=== PATIENT | female | born 1930 | race Asian ===

== ENCOUNTER 2020-05-17 11:04 | Inpatient (IN) | payer MEDICARE, MEDICAID ==
[~2020-05-17] VITALS: Ht 160 cm; Wt 52.2 kg
[~2020-05-17 11:04] MED LIST: ASPIRIN EC81 MG PO; CELEBREX200 MG PO; DICLOFENAC SOD2.5 ML BOTH EYES; DIOVAN HCT 1601 EACH PO; EXELON4.6 MG TD; LEXAPRO5 MG PO; MOBIC15 MG PO; OCUVITE1 EA PO; PATADAY2.5 ML BOTH EYES; VOLTAREN GEL TOPIC; [UNRECOGNIZED DRUG - OTHER] SUBQ
[2020-05-17 11:11] VITALS: BP 100/64
--- NOTE | 2020-05-17 11:11 | NUR ---
ED Nurse Note: Patient AMELIA RA 29 from [facility] d/t hypoxia. Per EMS, staff saw O2 desat to 84%, currently patient O2 sat is 94% on Non-rebreather at 15L. Patient AxO x 2, obeys command, but confused and pulling at mask. 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
[2020-05-17] MEDS ORDERED: Albuterol/Ipratropium 3ml neb HHN ONE (11:15)
[2020-05-17] MEDS ORDERED: dexAMETHasone 10mg/ml Inj IV ONE (11:15)
[2020-05-17] MEDS ORDERED: Acetaminophen 500mg (ES) tab ORAL ONE (11:15)
--- NOTE | 2020-05-17 11:15 | Emergency Room Report ---
History of Present Illness General Chief Complaint: Dyspnea/Respdistress Source: Patient, Medical Record, EMS Present Illness HPI Patient is an 89-year-old female past medical history of hypertension, dementia and recent diagnosis of COVID-19 who was brought in by EMS from her extended care facility for shortness of breath. Patient's a poor historian. She denies any pain. She does not know where she is or why she is here. History taken primarily from EMS. Per EMS patient was hypoxic to 84% on room air. Patient's oxygen saturation went up to 94% on nonrebreather. Allergies: Coded Allergies: No Known Allergies (Unverified , 12/07/12) COVID-19 Screening Contact w/high risk pt: No Experienced COVID-19 symptoms?: Yes COVID-19 Testing performed INFORMATION ANALYST: Yes - 05/11/20 COVID-19 Screening: Positive COVID-19 COVID-19 Testing Source: RELIABILITY TECHNICIAN Patient History Last Menstrual Period: na Reviewed Nursing Documentation: PMH: Agreed; PSxH: Agreed Nursing Documentation-PMH Past Medical History: No History, Except For Hx Cardiac Problems: Yes Hx Hypertension: Yes Hx Cancer: No Hx Gastrointestinal Problems: No History Of Psychiatric Problem: Yes - Dementia Hx Neurological Problems: Yes Hx Dementia: Yes Hx Memory Loss: Yes Review of Systems All Other Systems: limited - dementia Physical Exam Vital Signs Date Time Temp Pulse Resp B/P (MAP) Pulse Ox O2 Delivery O2 Flow Rate FiO2 05/17/20 10:59 99.9 87 18 100/64 (76) 94 Non-Rebreather 15.0 Sp02 EP Interpretation: reviewed, abnormal - Hypoxic patient placed on BiPAP General Appearance: alert, non-toxic, mild distress Head: normocephalic, atraumatic Eyes: bilateral eye normal inspection, bilateral eye PERRL ENT: hearing grossly normal, dry mucus membranes Neck: full range of motion, no meningismus Respiratory: other - Tachypneic mild respiratory distress Cardiovascular #1: regular rate, rhythm Cardiovascular #2: 2+ carotid (R), 2+ carotid (L) Gastrointestinal: non tender, soft, no guarding, no rebound Rectal: deferred Musculoskeletal: normal range of motion, moves extm spontaneously Neurologic: fishery biologist III-XII nml as tested Skin: no rash Lymphatic: no adenopathy Procedures Critical Care Time Critical Care Time Total critical care time: Approximately 35 minutes. Due to a high probability of clinically significant, life threatening deterioration, the patient required my highest level of preparedness to intervene emergently and I personally spent this critical care time directly and personally managing the patient. This critical care time included obtaining a history; examining the patient; pulse oximetry; ordering and review of studies; arranging urgent treatment with development of a management plan; evaluation of patient's response to treatment ; frequent reassessment; and, discussions with other providers.This critical care time was performed to assess and manage the high probability of imminent, life-threatening deterioration that could result in multi-organ failure. It was exclusive of separately billable procedures and treating other patients and teaching time. Please see MDM section and the rest of the note for further information on patient assessment and treatment. Medical Decision Making Diagnostic Impression: Primary Impression: Respiratory distress Additional Impressions: Anemia Hypoxia ER Course Doing well on supplemental oxygen. Patient's d-dimer is elevated chest x-ray is clear. Concern for PE. CTA of the chest has been ordered and is pending at the time of admission. Admitting MD aware. EKG Diagnostic Results EKG Time: 11:07 EP Interpretation: Arielle Woodard MD Rate: normal - 80 bpm Rhythm: NSR ST Segments: no acute changes ASA given to the pt in ED: No Rhythm Strip Diag. Results Rhythm Strip Time: 11:15 EP Interpretation: yes - Arielle Woodard MD Rate: 81 bpm Rhythm: NSR, no PVC's, no ectopy Chest X-Ray Diagnostic Results Chest X-Ray Diagnostic Results : Chest X-Ray Ordered: Yes # of Views/Limited/Complete: 1 View Indication: Shortness of Breath EP Interpretation: Yes Interpretation: no consolidation, no effusion, no pneumothorax, no acute cardiopulmonary disease Impression: No acute disease Electronically Signed by: Arielle Woodard MD Last Vital Signs Date Time Temp Pulse Resp B/P (MAP) Pulse Ox O2 Delivery O2 Flow Rate FiO2 05/17/20 10:59 99.9 87 18 100/64 (76) 94 Non-Rebreather 15.0 Disposition: ADMITTED INPATIENT - [facility]ARD[facility] Condition: Critical Physician Consult: Dr. Ray Additional Instructions: Please note that this report is being documented using [employer] technology. This can lead to erroneous entry secondary to incorrect interpretation by the dictating instrument. Arielle Woodard M.D. May 17, 2020 11:15
--- NOTE | 2020-05-17 11:28 | NUR ---
ED Nurse Note: 20 g IV started in right forearm. Blood drawn and sent to lab,
[2020-05-17 11:37] LABS: BASOPHILS % (AUTO) 0.9 % (0.0-2.0); EOSINOPHILS % (AUTO) 0.7 % (0.0-3.0); HEMATOCRIT 36.3 % (37.0-47.0); HEMOGLOBIN 11.6 G/DL (12.0-16.0); LYMPHOCYTES % (AUTO) 36.7 % (20.0-45.0); MEAN CORPUSCULAR VOLUME 96 FL (80-99); MONOCYTES % (AUTO) 8.7 % (1.0-10.0); PLATELET COUNT 240 K/UL (150-450); RED BLOOD COUNT 3.78 M/UL (4.20-5.40); RED CELL DISTRIBUTION WIDTH 13.1 % (11.6-14.8); WHITE BLOOD COUNT 5.3 K/UL (4.8-10.8)
[2020-05-17 11:53] LABS: INR 0.9 (0.9-1.1)
[2020-05-17 11:59] LABS: ANION GAP 7 mmol/L (5-15); BLOOD UREA NITROGEN 34 mg/dL (7-18); CALCIUM 9.2 MG/DL (8.5-10.1); CARBON DIOXIDE 27 MMOL/L (21-32); CHLORIDE 109 MMOL/L (98-107); CREATININE 0.9 MG/DL (0.55-1.30); POTASSIUM 4.3 MMOL/L (3.5-5.1); SODIUM 143 MMOL/L (136-145)
--- NOTE | 2020-05-17 11:59 | Diagnostic Imaging Report ---
Procedure: XRAY Chest 1v Reason for study: Reason For Exam: SOB Comparison films: None. FINDINGS: A single one view chest is obtained. Vascularity is normal. The lung chang are clear bilaterally. Cardiac and mediastinal silhouette are within normal limits. CP angles are sharp. The bony thorax appear unremarkable. IMPRESSION: NO ACUTE CARDIOPULMONARY DISEASE.
[2020-05-17 12:05] LABS: LACTATE DEHYDROGENASE 402 U/L (81-234)
[2020-05-17 12:14] LABS: ALANINE AMINOTRANSFERASE 21 U/L (12-78); ALBUMIN 3.4 G/DL (3.4-5.0); ALKALINE PHOSPHATASE 75 U/L (46-116); ASPARTATE AMINO TRANSFERASE 25 U/L (15-37); BILIRUBIN,TOTAL 0.6 MG/DL (0.2-1.0); CREATINE KINASE 151 U/L (26-308); FERRITIN 74 NG/ML (8-388); PHOSPHORUS 4.2 MG/DL (2.5-4.9)
[2020-05-17] MEDS ORDERED: Omnipaque 350 100ml vial INJ PRN (12:15)
[2020-05-17 13:02] LABS: APPEARANCE,URINE CLEAR; BILIRUBIN, URINE NEGATIVE (NEGATIVE); GLUCOSE, URINE (UA) NEGATIVE (NEGATIVE); KETONES,URINE NEGATIVE (NEGATIVE); LEUKOCYTE ESTERASE ,URINE 1+ (NEGATIVE); NITRITE,URINE NEGATIVE (NEGATIVE); PH,URINE 6.5 (4.5-8.0); PROTEIN,URINE NEGATIVE (NEGATIVE); UROBILINOGEN,URINE NORMAL MG/DL (0.0-1.0)
[2020-05-17 13:07] LABS: COLOR,URINE YELLOW
[2020-05-17 13:10] VITALS: BP 104/64
--- NOTE | 2020-05-17 13:20 | NUR ---
ED Nurse Note: Patient resting in bed, breathing even and unlabored. BP 118/91, O2 sat 96% on 15 L non-rebreather, no s/s of acute distress. Will continue to monitor.
--- NOTE | 2020-05-17 14:40 | NUR ---
ED Nurse Note: Patient restless, ERMD order for Ativan for CT scan.
[2020-05-17] MEDS ORDERED: LORazepam Inj 2mg/ml 1ml IV ONE (14:45)
[2020-05-17 15:15] VITALS: BP 105/67
[2020-05-17] MEDS ORDERED: LOSARTAN POTASS25 M1 PO (15:17)
[2020-05-17] MEDS ORDERED: GABAPENTIN100 MG ORAL (15:17)
[2020-05-17] MEDS ORDERED: LOPERAMIDE2 MG PO (15:17)
[2020-05-17] MEDS ORDERED: MILK OF MA400 MG/51 ORAL (15:17)
[2020-05-17] MEDS ORDERED: ACETAMINOPHEN325 M1 ORAL (15:17)
--- NOTE | 2020-05-17 15:20 | NUR ---
ED Nurse Note: Patient able to tolerate CT scan without moving, Ativan not needed. Wasted Ativan with RN witness.
--- NOTE | 2020-05-17 15:33 | Diagnostic Imaging Report ---
EXAM: CT CTA Chest w Contrast CLINICAL HISTORY: Reason For Exam: SOB. TECHNIQUE: CT angiogram of the pulmonary vasculature performed with IV contrast. 2-D and 3-D reformat images obtained. All CT scans at this facility are performed using dose modulation techniques as appropriate to a performed exam including the following: automated exposure control with adjustment of the mA and/or kV according to patient size. RADIATION DOSE: CTDIvol: 37.9 mGy DLP: 169.4 mGy-cm Dose information generated by the CT scanner is available in PACS. COMPARISON: None FINDINGS: Study limited due to respiratory motion artifacts. There is adequate opacification of the pulmonary vascularity. There is no central filling defects or thrombus identified. No gross abnormality identified in peripheral subsegmental branches to the extent visualized. The aorta is normal in caliber and there is no intimal flap or dissection. There are small calcified lymph nodes in the mediastinum. Lungs are mostly clear except for minimal dependent atelectasis. Limited images through the upper abdomen show a small layering gallstone. Degenerative changes noted along the spine. There is no acute osseous abnormality noted. IMPRESSION: STUDY LIMITED DUE TO RESPIRATORY MOTION ARTIFACT. NO LARGE CENTRAL EMBOLISM. NO DEFINITE PERIPHERAL SMALL SUBSEGMENTAL PULMONARY EMBOLI TO THE EXTENT VISUALIZED. 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 GALLSTONE.
--- NOTE | 2020-05-17 16:23 | NUR ---
NURSE NOTES: Received report from KRYSTIAN Walker.
--- NOTE | 2020-05-17 16:23 | NUR ---
ED Nurse Note: Report given to Izabella BOLAND
[2020-05-17 16:30] VITALS: BP 109/66
--- NOTE | 2020-05-17 17:00 | NUR ---
NURSE NOTES: Pt arrived on the floor. Pt placed on contact and droplet precaution for positive Covid-19 test result. No sign of acute distress. Pt on non-rebreather 100% with SpO2 100% with fair waveform. Several blankets placed on patient to warm her up. Temp 97.9. Hands and feet cold to touch. Pt able to move all extremities equally. Pupils size 3 PERRLA. Peripheral pulses bilateral and strong. Pt pashto speaking with confusion and history of dementia. Pt able to mime needing the bed camilo and knows what it is for. Bedpan provided and patient able to urinate without trouble. Urine clear yellow without foul odor. Skin intact. One IV noted on right forearm 20 gauge. Pt calm and comfortable at this time. Heels elevated. Optifoam placed on coccyx and bilateral heels for skin protection. Call light placed next to patient. Restraints initiated for safety as patient is a high fall risk and the door to her room must remain closed for covid-19 precaution. Bed alarm on. Bed low and locked.
[2020-05-17 17:14] VITALS: BP 149/92
--- NOTE | 2020-05-17 17:51 | NUR ---
CASE MANAGEMENT: REVIEW 89 YEAR OLD FEMALE BIBA FROM [facility] CC: SOB SI: COVID-19 T 99.9 HR 87 RR 18 BP 100/64 SAT 94% NON-REBREATHER FLOW RATE 15.0 ABG: PH 7.421 PCO2 31.8 PCO2 390.0 HCO3 20.2 IS: TYLENOL 500MG PO X1 ALBUTEROL HHN X1 DECADRON IV X1 NS IVF BOLUS X1 ATIVAN IV X1 PATIENT ADMITTED TO STEP DOWN UNIT 05/17/2020 DCP: PATIENT IS FROM [facility]
--- NOTE | 2020-05-17 18:36 | NUR ---
NURSE NOTES: Message left for Dr Aviles regarding admission orders. Awaiting call back. Addendum: 05/17/20 at 1939 by Izabella Stevens RN Dr Packer NOT Dr Aviles. Dr Packer is primary. Dr Aviles is not consulted on this patient.
--- NOTE | 2020-05-17 19:24 | NUR ---
HAND-OFF: Report given to KRYSTIAN Flores.
--- NOTE | 2020-05-17 19:25 | NUR ---
NURSE NOTES: Received report from KRYSTIAN Parekh, pt. in bed awake, appears to be alert to name and place,-pt. is Sami speaking, no signs or symptoms of acute cardiac or respiratory distress noted, call light within easy reach, bed alarm on, side rails up x's3 and safety brakes engaged, bilateral wrist restraints removed, pulses palpable and skin intact- restraints reapplied, HOB elevated, isolation precautions observed, pt. appears to be sating well on 15L fio2 at 100%- nonrebreather- no distress noted, pt. appears clean and dry, RFA 20G IV intact and patent, safety measures continued will continue with plan of care.
--- NOTE | 2020-05-17 19:36 | NUR ---
NURSE NOTES: left message for DR. Packer for admission orders-awaiting for call back from doctor.
[2020-05-17 20:00] VITALS: BP 141/69
--- NOTE | 2020-05-17 20:24 | NUR ---
NURSE NOTES: called DR. Packer- noah doctor he will call me back with admission orders.
--- NOTE | 2020-05-17 20:41 | NUR ---
NURSE NOTES: Received orders from DR. Packer, orders read back and verified- also home medication okay to continue as in med reconcile but to make losartan Potassium 25mg PO daily and Loperamide 2mg Q6hrs prn diarrhea- orders carried out.
[2020-05-17] MEDS ORDERED: Milk of Magnesia 30ml Ud ORAL PRN (20:45)
--- NOTE | 2020-05-17 22:55 | NUR ---
NURSE NOTES: during hourly rounding noticed- pt. had IV out at bedside- tried several attempts to insert IV but unsuccessful- have another nurse Retry- pt. cleaned- bed bath given and linens changed- oral care provided, pt. remains stable-will continue to monitor.
--- NOTE | 2020-05-17 23:13 | NUR ---
NURSE NOTES: per Kyra at lab- there is no test for pro-calcitonin on calcitonin- will notify MD in am- but she will do calcitonin level.
[2020-05-18] VITALS: BP 139/63
--- NOTE | 2020-05-18 00:48 | NUR ---
NURSE NOTES: left message for DR. Packer- awaiting for call back- pt. very agitated- trying to get out of bed- confused- will continue to monitor pt.
--- NOTE | 2020-05-18 01:26 | NUR ---
NURSE NOTES: per DR. Yamini prince to order Ativan 0.5mg IV Q8hrs prn anxiety.
[2020-05-18] MEDS: LORazepam Inj 2mg/ml 1ml IV PRN ×2 (01:42→16:28)
--- NOTE | 2020-05-18 01:46 | NUR ---
NURSE NOTES: pt. titrated down to NC 4L - appears to be tolerating NC settings sating at 199%- will continue to monitor pt. and with plan of care. Addendum: 05/18/20 at 0242 by NOREEN MELARA RN RN correction to message above pt. sating at 99%.
--- NOTE | 2020-05-18 02:42 | NUR ---
NURSE NOTES: went to assess pt.- noted pt. not wearing NC - appeared pt. had some pieces of NC tubing sticking out of her mouth- tried to take pieces out of her mouth from the outside of her mouth- but pt. came towards me and bit my right thumb- skin intact. pt. sating at 99%- without NC- will continue to monitor pt. Addendum: 05/18/20 at 0253 by NOREEN MELARA RN RN Ativan appears to be ineffective- pt. continues to be agitated- combative and biting- when trying to clean her or providing pt. care.
[2020-05-18 04:00] VITALS: BP 148/69
--- NOTE | 2020-05-18 05:01 | NUR ---
HAND-OFF: Report given to Debbie Grubbs pt. remains stable and no signs of distress noted.
--- NOTE | 2020-05-18 05:03 | NUR ---
NURSE NOTES: Received pt's report from KRYSTIAN Flores, pt. in bed awake, A/O x 1, pt was not able to say her name, but pt understand general question and answered properly. Pt seemed to be confused because Pt found chewing her IV line and nasal canula last night. I asked why she try to chew plastic tube, she stated "I don't know." No s/s of respiratory distress noted, call light within reach, bed alarm on, side rails up x's3. Pt is on bilateral wrist restraints, Semi-bueno position. Pt is on nonrebreather mask, 15L. SpO2 100%. Pt's IV sites are clean and intact. Will continue to monitor with plan of care.
[2020-05-18 05:25] LABS: BASOPHILS % (AUTO) 0.4 % (0.0-2.0); HEMATOCRIT 33.9 % (37.0-47.0); HEMOGLOBIN 10.8 G/DL (12.0-16.0); LYMPHOCYTES % (AUTO) 26.5 % (20.0-45.0); MEAN CORPUSCULAR VOLUME 95 FL (80-99); MONOCYTES % (AUTO) 6.6 % (1.0-10.0); NEUTROPHILS % (AUTO) 66.5 % (45.0-75.0); PLATELET COUNT 248 K/UL (150-450); RED BLOOD COUNT 3.56 M/UL (4.20-5.40); RED CELL DISTRIBUTION WIDTH 12.9 % (11.6-14.8)
--- NOTE | 2020-05-18 05:56 | NUR ---
NURSE NOTES: Pt's RR went down to 10. Called the RT change to her setting Venturi mask 55% FiO2. SpO2 100% at this moment. RR 13. Will continue to monitor.
[2020-05-18 05:58] LABS: ALANINE AMINOTRANSFERASE 18 U/L (12-78); ALBUMIN 3.2 G/DL (3.4-5.0); ALBUMIN/GLOBULIN RATIO 0.8 (1.0-2.7); ALKALINE PHOSPHATASE 72 U/L (46-116); ANION GAP 9 mmol/L (5-15); ASPARTATE AMINO TRANSFERASE 29 U/L (15-37); BILIRUBIN,TOTAL 0.6 MG/DL (0.2-1.0); BLOOD UREA NITROGEN 27 mg/dL (7-18); CALCIUM 8.9 MG/DL (8.5-10.1); CARBON DIOXIDE 24 MMOL/L (21-32); CHLORIDE 109 MMOL/L (98-107); FERRITIN 80 NG/ML (8-388); PHOSPHORUS 3.6 MG/DL (2.5-4.9); POTASSIUM 4.2 MMOL/L (3.5-5.1); SODIUM 142 MMOL/L (136-145)
--- NOTE | 2020-05-18 07:33 | NUR ---
HAND-OFF: Report given to KRYSTIAN Bravo.
--- NOTE | 2020-05-18 07:35 | NUR ---
NURSE NOTES: Report received from Ravi Castellanos RN.Pt awake,confused sitting up on high fowlers position,with bilat wrist restraints,noted no resp distress on Venturi,55%SR on the monitor no signs of pain or discomfort,SR on the monitor,pt incontinent of urine,skin warm and dry with IV H-L to LAC and LH both intact,SR up x2 ,bed lock in lowest position will continue with plans of care.
[2020-05-18 08:00] VITALS: BP 127/84
[2020-05-18] MEDS ORDERED: Albuterol 90mcg Inhaler 8gm INH PRN (08:15)
--- NOTE | 2020-05-18 08:27 | Consultation ---
History of Present Illness General Date patient seen: May 18, 2020 Time patient seen: 07:30 Chief Complaint: Dyspnea/Respdistress Referring physician: dr Packer Reason for Consultation: hypoxia, + COVID Present Illness HPI 89 years old female with past medical history of hypertension, dementia, recently diagnosed COVID-19, presented from the alf facility due to shortness of breath. Patient was a poor historian given her dementia. Per paramedics, patient was hypoxic, saturating 84% on the room air. Patient required placement of nonrebreather mask with oxygen saturation improved to 94%. Upon evaluation patient had low-grade fever and was hypoxic. Laboratory work-up revealed no leukocytosis, hemoglobin 11.6, hematocrit 26.3, platelet count 240. ABG was stable on 100 percent nonrebreathing mask. BUN 34, creatinine 0.9 , Troponin negative. EKG revealed sinus rhythm no acute ischemic changes. Rapid COVID-19 was positive. Chest x-ray revealed no acute cardiopulmonary pathology. CT angiogram of the chest revealed no evidence of PE. In emergency department patient received IV Decadron, MDI albuterol and admitted for further management to stepdown unit. Pulmonary consult was requested to assist in management of this patient. Allergies: Coded Allergies: No Known Allergies (Unverified , 12/07/12) Medication History Scheduled Celecoxib* (Celebrex*), 200 MG PO DAILY, (Reported) Gabapentin* (Gabapentin*), 100 MG ORAL BID, (Reported) Magnesium Hydroxide* (Milk Of Magnesia*), 30 ML ORAL DAILY, (Reported) Scheduled PRN Acetaminophen* (Acetaminophen 325MG Tablet*), 650 MG ORAL Q4H PRN for For Pain, (Reported) Miscellaneous Medications Loperamide Hcl (Loperamide), 2 MG PO, (Reported) Losartan Potassium (Losartan Potassium), 25 MG PO, (Reported) Discontinued Medications Aspirin Ec* (Aspirin Ec*), 81 MG PO DAILY, (Reported) Discontinued Reason: Therapy completed Beta-Carotene(A) W-C & E/Min (Prosight Tablet), 1 EA PO DAILY, (Reported) Discontinued Reason: Therapy completed Diclofenac Sodium (Diclofenac Sodium*), 1 DROP BOTH EYES QID, (Reported) Discontinued Reason: Therapy completed Escitalopram Oxalate (Lexapro), 10 MG PO HS, (Reported) Discontinued Reason: Therapy completed Meloxicam* (Mobic*), 15 MG PO DAILY, (Reported) Discontinued Reason: Therapy completed Olopatadine Hcl (Pataday), 1 DRP BOTH EYES DAILY, (Reported) Discontinued Reason: Therapy completed Rivastigmine Tartrate (Exelon), 13.3 MG TD DAILY, (Reported) Discontinued Reason: Therapy completed Valsartan/Hydrochlorothiazide 160-12.5MG (Diovan Hct 160-12.5 Mg Tab), 1 TAB PO DAILY, (Reported) Discontinued Reason: Therapy completed [Forted Injection], 20 MCG SUBQ DAILY, (Reported) Discontinued Reason: Therapy completed [Voltaren Gel], 1 % TOPIC DAILY, (Reported) Discontinued Reason: Therapy completed Patient History History Provided By: Medical Record, EMS Healthcare decision maker Resuscitation status Full code Advanced Directive on File Review of Systems ROS Narrative Unavailable due to patient dementia Physical Exam General Appearance: no apparent distress, other - elderly poorly responsive thin female Lines, tubes and drains: peripheral HEENT: normocephalic, atraumatic, anicteric Neck: supple Respiratory/Chest: decreased breath sounds Abdomen: normal bowel sounds, non tender, soft Extremities: no calf tenderness, no edema Skin Exam: warm/dry Neurologic: other - awake, poorly responsive, moves all extremities Musculoskeletal: atrophy - BLE Last 24 Hour Vital Signs Date Time Temp Pulse Resp B/P (MAP) Pulse Ox O2 Delivery O2 Flow Rate FiO2 05/18/20 04:00 Non-Rebreather 15.0 05/18/20 04:00 15.0 100 05/18/20 04:00 98.0 88 16 148/69 (95) 100 05/18/20 03:56 74 05/18/20 00:00 Non-Rebreather 15.0 05/18/20 00:00 97.8 92 16 139/63 (88) 99 05/18/20 00:00 15.0 100 05/17/20 23:43 81 05/17/20 20:00 Non-Rebreather 15.0 05/17/20 20:00 15.0 100 05/17/20 20:00 98.1 98 16 141/69 (93) 95 05/17/20 19:20 88 05/17/20 17:16 Non-Rebreather 15.0 05/17/20 17:14 76 25 100 60 05/17/20 17:14 97.9 77 15 149/92 (111) 90 05/17/20 16:30 99.1 72 18 116/65 96 Non-Rebreather 15.0 05/17/20 16:30 99.1 72 18 109/66 97 Non-Rebreather 15.0 05/17/20 15:15 99.4 75 18 105/67 97 Non-Rebreather 15.0 05/17/20 13:10 99.5 67 18 104/64 96 Non-Rebreather 15.0 05/17/20 12:01 99.1 05/17/20 11:11 99.9 78 18 100/64 94 Non-Rebreather 15.0 05/17/20 11:11 87 18 Non-Rebreather 15.0 05/17/20 10:59 99.9 87 18 100/64 (76) 94 Non-Rebreather 15.0 Intake and Output 05/17/20 05/18/20 19:00 07:00 Intake Total 0 ml Balance 0 ml Intake Oral 0 ml # Voids 4 Laboratory Tests Test 05/17/20 11:11 05/17/20 12:05 05/17/20 12:51 05/18/20 03:20 White Blood Count 5.3 K/UL (4.8-10.8) 6.0 K/UL (4.8-10.8) Red Blood Count 3.78 M/UL (4.20-5.40) L 3.56 M/UL (4.20-5.40) L Hemoglobin 11.6 G/DL (12.0-16.0) L 10.8 G/DL (12.0-16.0) L Hematocrit 36.3 % (37.0-47.0) L 33.9 % (37.0-47.0) L Mean Corpuscular Volume 96 FL (80-99) 95 FL (80-99) Mean Corpuscular Hemoglobin 30.7 PG (27.0-31.0) 30.3 PG (27.0-31.0) Mean Corpuscular Hemoglobin Concent 31.9 G/DL (32.0-36.0) L 31.7 G/DL (32.0-36.0) L Red Cell Distribution Width 13.1 % (11.6-14.8) 12.9 % (11.6-14.8) Platelet Count 240 K/UL (150-450) 248 K/UL (150-450) Mean Platelet Volume 7.8 FL (6.5-10.1) 6.4 FL (6.5-10.1) L Neutrophils (%) (Auto) 53.0 % (45.0-75.0) 66.5 % (45.0-75.0) Lymphocytes (%) (Auto) 36.7 % (20.0-45.0) 26.5 % (20.0-45.0) Monocytes (%) (Auto) 8.7 % (1.0-10.0) 6.6 % (1.0-10.0) Eosinophils (%) (Auto) 0.7 % (0.0-3.0) 0.0 % (0.0-3.0) Basophils (%) (Auto) 0.9 % (0.0-2.0) 0.4 % (0.0-2.0) Prothrombin Time 10.4 SEC (9.30-11.50) Prothromb Time International Ratio 0.9 (0.9-1.1) Activated Partial Thromboplast Time 26 SEC (23-33) D-Dimer 1.26 mg/L FEU (0.00-0.49) H Sodium Level 143 MMOL/L (136-145) 142 MMOL/L (136-145) Potassium Level 4.3 MMOL/L (3.5-5.1) 4.2 MMOL/L (3.5-5.1) Chloride Level 109 MMOL/L (98-107) H 109 MMOL/L (98-107) H Carbon Dioxide Level 27 MMOL/L (21-32) 24 MMOL/L (21-32) Anion Gap 7 mmol/L (5-15) 9 mmol/L (5-15) Blood Urea Nitrogen 34 mg/dL (7-18) H 27 mg/dL (7-18) H Creatinine 0.9 MG/DL (0.55-1.30) 1.0 MG/DL (0.55-1.30) Estimat Glomerular Filtration Rate 59.0 mL/min (>60) 52.2 mL/min (>60) Glucose Level 153 MG/DL (74-106) H 93 MG/DL (74-106) Lactic Acid Level 1.40 mmol/L (0.4-2.0) Calcium Level 9.2 MG/DL (8.5-10.1) 8.9 MG/DL (8.5-10.1) Phosphorus Level 4.2 MG/DL (2.5-4.9) 3.6 MG/DL (2.5-4.9) Magnesium Level 2.1 MG/DL (1.8-2.4) 1.9 MG/DL (1.8-2.4) Ferritin 74 NG/ML (8-388) 80 NG/ML (8-388) Total Bilirubin 0.6 MG/DL (0.2-1.0) 0.6 MG/DL (0.2-1.0) Aspartate Amino Transf (AST/SGOT) 25 U/L (15-37) 29 U/L (15-37) Alanine Aminotransferase (ALT/SGPT) 21 U/L (12-78) 18 U/L (12-78) Alkaline Phosphatase 75 U/L (46-116) 72 U/L (46-116) Lactate Dehydrogenase 402 U/L (81-234) H Total Creatine Kinase 151 U/L (26-308) Troponin I 0.000 ng/mL (0.000-0.056) 0.000 ng/mL (0.000-0.056) C-Reactive Protein, Quantitative < 0.4 mg/dL (0.00-0.90) 0.7 mg/dL (0.00-0.90) Pro-B-Type Natriuretic Peptide 135 pg/mL (0-125) H Total Protein 6.9 G/DL (6.4-8.2) 7.0 G/DL (6.4-8.2) Albumin 3.4 G/DL (3.4-5.0) 3.2 G/DL (3.4-5.0) L Globulin 3.5 g/dL 3.8 g/dL Albumin/Globulin Ratio 1.0 (1.0-2.7) 0.8 (1.0-2.7) L Urine Color Yellow Urine Appearance Clear Urine pH 6.5 (4.5-8.0) Urine Specific [place] 1.015 (1.005-1.035) Urine Protein Negative (NEGATIVE) Urine Glucose (UA) Negative (NEGATIVE) Urine Ketones Negative (NEGATIVE) Urine Blood Negative (NEGATIVE) Urine Nitrite Negative (NEGATIVE) Urine Bilirubin Negative (NEGATIVE) Urine Urobilinogen Normal MG/DL (0.0-1.0) Urine Leukocyte Esterase 1+ (NEGATIVE) H Urine RBC 0-2 /HPF (0 - 2) Urine WBC 0-2 /HPF (0 - 2) Urine Squamous Epithelial Cells Occasional /LPF Urine Bacteria Occasional /HPF (NONE) Urine Mucus Moderate /LPF (NONE/OCC) H Arterial Blood pH 7.421 (7.350-7.450) Arterial Blood Partial Pressure CO2 31.8 mmHg (35.0-45.0) L Arterial Blood Partial Pressure O2 390.0 mmHg (75.0-100.0) H Arterial Blood HCO3 20.2 mmol/L (22.0-26.0) L Arterial Blood Oxygen Saturation 99.2 % (95-100) Arterial Blood Base Excess -3.5 (-2-2) L Charlie Test Positive Calcitonin Level Pending Microbiology Date/Time Source Procedure Growth Status 05/17/20 13:40 Nasopharynx SARS-CoV-2 RdRp Gene Assay - Final Complete Height (Feet): 5 Height (Inches): 3.00 Weight (Pounds): 117 Medications Current Medications Medications (Trade) Dose Ordered Sig/Hetal Route PRN Reason Start Time Stop Time Status Last Admin Dose Admin Acetaminophen (Tylenol) 650 mg Q4H PRN ORAL Mild Pain (Pain Scale 1-3) 05/17/20 20:45 06/16/20 20:44 Dexamethasone Sodium Phosphate (Decadron 4mg/ml vial) 6 mg DAILY IVP 05/18/20 09:00 05/27/20 08:59 Gabapentin (Neurontin) 100 mg BID ORAL 05/18/20 09:00 06/17/20 08:59 Iohexol (Omnipaque 350 100ml) 100 ml NOW PRN INJ Radiology Procedure 05/17/20 12:15 05/19/20 12:14 Loperamide HCl (Imodium) 2 mg Q6H PRN ORAL Diarrhea 05/17/20 20:45 06/16/20 20:44 Lorazepam (Ativan 2mg/ml 1ml) 0.5 mg Q8H PRN IV For Anxiety 05/18/20 01:30 05/25/20 01:29 05/18/20 01:42 Losartan Potassium (Cozaar) 25 mg DAILY ORAL 05/18/20 09:00 06/17/20 08:59 Magnesium Hydroxide (Mom) 30 ml DAILYPRN PRN ORAL Constipation 05/17/20 20:45 06/16/20 20:44 Meloxicam (Mobic) 15 mg DAILY ORAL 05/18/20 09:00 06/17/20 08:59 Ondansetron HCl (Zofran) 4 mg Q4H PRN IVP Nausea & Vomiting 05/17/20 20:45 06/16/20 20:44 Assessment/Plan Assessment/Plan: ASSESSMENT COVID-19 infection Acute hypoxemic respiratory failure, requiring 100% nonrebreathing mask Shortness of breath Acute kidney injury/azotemia/ likely due to dehydration Anemia Protein calorie malnutrition Hypertension PLAN OF CARE EDUARDO isolation supplemental oxygen titrate to keep pulse ox above 92% MDI treatment trial of steroids ABG this am closely monitor respiratory status hold off abx given no evidence of pneumonia on CXR f/up with CXR serial troponin negative, EKG no acute ischemic changes Echo Venous duplex BLE DVT prophylaxis with LMWH add GI prophylaxis given pt on steroids and also NSADH inflammatory markers to assess risk for cytokine storm: D dimer 1.26, LDH 402, stable ferritin and CRP aspiration precaution swallow evaluation dietary eval monitor renal parameters, electrolytes ,avoid nephrotoxic, encourage hydration SNF medication resumed supportive care case discussed and evaluated by supervising physician Ginger Red NP May 18, 2020 08:27
[2020-05-18] MEDS ORDERED: celeBREX 200mg Cap **SURGERY PATIENTS ONLY ORAL SCH (09:00)
[2020-05-18] MEDS: Meloxicam 15 MG TAB ORAL SCH ×2 (09:00→09:45)
[2020-05-18] MEDS: Losartan 25mg tab ORAL SCH ×2 (09:00→09:46)
--- NOTE | 2020-05-18 09:03 | NUR ---
RD ASSESSMENT & RECOMMENDATIONS SEE CARE ACTIVITY FOR COMPLETE ASSESSMENT DAILY ESTIMATED NEEDS: Needs based on Pulmonary 53kg 25-30 kcals/kg 4763-6813 total kcals 1-1.5 g protein/kg 53-80 g total protein 20-30ml/kcal mL/kg 9678-3205 total fluid mLs NUTRITION DIAGNOSIS: Swallowing difficulty r/t dementia, confusion as evidenced by pt on puree texture diet, EQUINE INTERN eval pending. (CURRENT DIET: Cardiac puree) PO DIET RECOMMENDATIONS--->>> Low Na diet/ texture per EQUINE INTERN ENTERAL NUTRITION RECOMMENDATIONS: Jevity 1.2 @50ml/hr x24 hrs to provide 1200ml, 1440 kcal, 67g pro, 968ml free H2O - If not appropriate for oral diet rec non oral feeds to meet est needs. - Obtain GI access, initiate Jevity 1.2@20ml/hr for 6 hrs. Advance as tolerated 10ml/hr q4-6 hrs to goal. - Flush per MD, HOB over 30 degrees ADDITIONAL RECOMMENDATIONS: 1) With ORAL DIET add Ensure Enlive w/ meals 2) TF recs as above if pt is NOT appropriate for oral diet 3) Monitor lytes, replete as needed 4) Check BG w/ decadron, niss prn 5) Maintain calibrated bed scale wts
--- NOTE | 2020-05-18 09:35 | NUR ---
NURSE NOTES: Seen by Ginger Red CT SCAN TECH,ordered Speech Eval,will keep pt NPO pending eval.PO medic hold.
[2020-05-18] MEDS: Enoxaparin 40mg Inj SUBQ SCH (09:48)
--- NOTE | 2020-05-18 10:30 | NUR ---
NURSE NOTES: Speech therapist Aspen at bedside,swallowing eval done,able to swallow pureed food no signs aspiration noted.
[2020-05-18] MEDS: Pantoprazole Inj IVP SCH (10:59)
--- NOTE | 2020-05-18 11:46 | History & Physical ---
History and Physical History & Physicial Dictated for Int Med-DR Packer no. [id number] Dimas Anderson MD May 18, 2020 11:46
[2020-05-18 12:00] VITALS: BP 125/46
--- NOTE | 2020-05-18 12:00 | NUR ---
NURSE NOTES: Pt ate lunch fed by RN,tolerated Pureed food,no aspiration presented.
--- NOTE | 2020-05-18 14:18 | NUR ---
BEDSIDE SWALLOW EVALUATION ORDERS RECEIVED FROM SURFACING MACHINE OPERATOR ROBERTO FOR SWALLOW EVALUATION. DYSPHAGIA RISK FACTORS FOR THIS 89 Y.O. FEMALE: ACUTE: COVID-19 Positive, Acute hypoxemic respiratory failure (Requiring 100% nonrebreathing mask), SOB, Acute kidney injury (/azotemia/ likely due to dehydration), Anemia, Protein calorie malnutrition, Hypertension. H/O: Dementia, Anxiety, protein-calorie malnutrition, SOB, dependence on supplemental oxygen, muscle weakness, difficulty walking, essential hypertension, insomnia, Psychotic disorders. RELEVANT MEDS: Neurontin (seizures). Protonix (GERD). Zofran (Nausea). Ativan (Agitation). PLOF: Per transfer documents, Patient was previously on a Regular solids with thin liquids diet. Upon admission to this facility ([facility] [place]) Patient made NPO awaiting swallow eval. PER RN: Patient is unable to follow any simple commands, difficult to understand. Patient appears to be confused. Patient initially requiring Venturi Mask at 14L Fi02 55%, SP02 97%. Patient was placed on 4 L nasal cannula by RT for completion of PO trials during swallowing evaluation. Patients VSS for the duration of the session and SP02 >95% maintained. INITIAL IMPRESSIONS: Mild to Moderate Oropharyngeal Dysphagia (pharyngeal phase appears to be worse) compounded by Patient's poor breathing swallowing coordination (Dx of Acute hypoxemic respiratory failure) and cognitive behavioral deficits (unable to follow directions, confused; h/o Dementia) with reduced oral motor ROM and strength, prolonged oral and oropharyngeal transit times, no oral residuals remaining in oral cavity. Laryngeal elevation present upon palpation appears mildly delayed and reduced in elevation, immediate overt s/s of aspiration with thin liquids via teaspoon; No overt s/s of aspiration with puree solid trials of nectar thick liquids trials. PO TRIALS: Patient completed PO trials of thin liquids via teaspoon, nectar thick liquids via teaspoon, and puree solids via spoon. Patient noted with immediate grimacing and throat clearing s/p thin liquids, no overt s/s of aspiration with nectar thick liquids or puree solids; vocal quality remained clear. PATIENT HAS RISK FOR ASPIRATION AND POOR PO GIVEN COGNITIVE BEHAVIORAL DEFICITS (CONFUSED, DOES NOT FOLLOW DIRECTIONS, H/O DEMENTIA) AND POOR BREATHING-SWALLOWING COORDINATION. RECOMMENDATIONS: 1. Moist Puree with [place] Thick Liquids; will require 1 to 1 careful hand feeding for aspiration precautions and for encouragement to increase PO. 2. Defer to RD for type/supplements: Low NA +Ensure Enlive TID. 3. GIRLS SWIMMING COACH will f/u for dysphagia tx and management 3-5x a week x 1 week 4. GIRLS SWIMMING COACH plans to monitor need for MBSS while in house. 5. Please assist with oral care/hygiene BID. GIRLS SWIMMING COACH communicated results, recommendations, and POC to RN. GIRLS SWIMMING COACH plans to f/u for diet tolerance, dysphagia management/tx, monitor need for MBSS while in house to r/o silent aspiration. Thank you for this referral! GIRLS SWIMMING COACH [phone]
--- NOTE | 2020-05-18 14:41 | NUR ---
CASE MANAGEMENT: REVIEW SI: COVID-19 . HYPOXIA T 97.7 HR 67 RR 16 BP 148/69 SAT 97% VENTURI MASK FIO2 55 ABG: PH 7.488 PCO2 25.5 PO2 242.4 HCO3 18.9 O2 SAT 99.0 BASE -3.2 IS: DECADRON IV QD PROTONIX IV QD ALBUTEROL INH Q4HR PRN ATIVAN IV Q8HR STEP DOWN UNIT STATUS DCP: PATIENT IS FROM [facility]
--- NOTE | 2020-05-18 15:15 | History and Physical Report ---
DATE OF ADMISSION: 05/17/2020 CHIEF COMPLAINT: The patient is an 89-year-old female, who presents with a chief complaint of shortness of breath. HISTORY OF PRESENT ILLNESS: The patient was evaluated at [facility] on 05/11/2020. The patient is a resident of [facility]. The patient was found to be COVID-19 positive. The patient was discharged back to [facility]. The patient then began to experience shortness of breath. The patient was transferred to [facility] emergency room. The patient was found again to be COVID-19 positive. The patient is admitted with shortness of breath and probable COVID-19 pneumonia. REVIEW OF SYSTEMS: Unable to assess secondary to the patient's mental status. PAST MEDICAL HISTORY: Significant for: 1. Alzheimer's dementia. 2. COVID-19 positive diagnosed on 05/11/2020. PAST SURGICAL HISTORY: Unknown. CURRENT MEDICATIONS: 1. Celebrex 200 mg one tablet p.o. daily. 2. Gabapentin 100 mg p.o. twice daily. 3. Losartan 25 mg p.o. daily. ALLERGIES: No known drug allergies. SOCIAL HISTORY: The patient is single and resident of [facility]. The patient denies tobacco or alcohol use. PHYSICAL EXAMINATION: VITAL SIGNS: Temperature 98.1, respirations 16, pulse 88 to 98, and blood pressure 141/69. GENERAL: The patient is a thin-appearing, female, in no apparent distress. HEENT: Eyes, pupils are equal and responsive to light and accommodation. Extraocular movements are intact. NECK: Supple without lymphadenopathy. CHEST: Decreased breath sounds to bilateral bases. Otherwise, clear to auscultation without wheezes or rales. CARDIOVASCULAR: Regular rhythm and rate. S1, S2 are normal without murmurs, rubs, or gallops. ABDOMEN: Soft, nontender, and nondistended. Positive bowel sounds. No evidence of hepatosplenomegaly. Currently, no rebound or guarding noted. EXTREMITIES: Negative for clubbing, cyanosis, or edema. RECTAL/GENITAL: Not performed. NEUROLOGIC: Cranial nerves II to XII are grossly intact without focal deficits. Motor strength is 5/5 bilaterally. Deep tendon reflexes are 2+ plantar. LABORATORY STUDIES: WBC 5.2, hemoglobin 11.6, hematocrit 36.3, and platelets 240,000. Sodium 143, potassium 4.3, chloride 109, CO2 27, BUN 34, creatinine 0.9. Glucose 153. Troponin 0.0. Rapid COVID-19 was reported as positive. A chest x-ray is reported as no acute disease. A CT angiogram failed to demonstrate pulmonary embolism. ASSESSMENT: This is an 89-year-old female with: 1. COVID-19 positive. 2. Probable COVID-19 pneumonia. 3. Hypertension. 4. Alzheimer's dementia. TREATMENT: 1. COVID-19 positive. An Infectious Disease consultation has been obtained with Dr. Strickland. A Pulmonary consultation has been obtained with Dr. Thania Chung. The patient has been started empirically on Decadron intravenously. Follow recommendations of Pulmonary and Infectious Disease. 2. Hypertension. Continue losartan as above. 3. Alzheimer's dementia. Dimas Anderson M.D. DR: PASQUALE JOB#: [id number] CC:
[2020-05-18 16:00] VITALS: BP 125/53
--- NOTE | 2020-05-18 16:30 | NUR ---
NURSE NOTES: Pt very confused and restless,grabbing everything within reach,found chewing nasal cannula tubing, pulled up and repositioned.Medicated with Ativan 0.5 mg iv.pt with bilat wrist restraints,will continue to monitor pt.
--- NOTE | 2020-05-18 18:00 | NUR ---
NURSE NOTES: Fed pt dinner ,HOB elevated 30 degrees ,able to swallow pureed food,no aspiration presented.
--- NOTE | 2020-05-18 19:24 | NUR ---
HAND-OFF: Report given to Dunia Melgoza RN.
--- NOTE | 2020-05-18 19:35 | NUR ---
NURSE NOTES: Report received from KRYSTIAN Bravo. Upon assessment patient appears to be confused with legs over the siderails and attempting to get out of bed. Offered nutrition but patient seen biting on utensils and medical devices. Reoriented and repositioned patient as needed. Vitals WNL. Afebrile. Patient seen on Venturi Mask 35% FiO2 at 100% O2 sat. No respiratory or cardiac distress noted. IV sites intact. Bilateral soft wrist restraints observed for attempting to remove medical devices. Bed kept in lowest and locked position. bed alarm on. Will continue monitoring.
[2020-05-18 20:00] VITALS: BP 130/67
[2020-05-19] VITALS: BP_SYST 147; BP_SYST 154; BP_DIAS 102; BP_DIAS 68
--- NOTE | 2020-05-19 03:00 | NUR ---
NURSE NOTES: Pt. restless throughout the night despite all needs met. Repositioned and offered nutrition. Kept clean and dry. Pt. continuously tries to hang legs over side rails. PRN given. Will continue to monitor.
[2020-05-19] MEDS: LORazepam Inj 2mg/ml 1ml IV PRN (03:17)
[2020-05-19 04:11] VITALS: BP 138/81
[2020-05-19 05:10] LABS: BASOPHILS % (AUTO) 0.3 % (0.0-2.0); EOSINOPHILS % (AUTO) 0.1 % (0.0-3.0); HEMATOCRIT 37.1 % (37.0-47.0); HEMOGLOBIN 11.8 G/DL (12.0-16.0); LYMPHOCYTES % (AUTO) 25.8 % (20.0-45.0); MEAN CORPUSCULAR VOLUME 95 FL (80-99); NEUTROPHILS % (AUTO) 65.9 % (45.0-75.0); PLATELET COUNT 283 K/UL (150-450); RED BLOOD COUNT 3.89 M/UL (4.20-5.40); RED CELL DISTRIBUTION WIDTH 12.7 % (11.6-14.8); WHITE BLOOD COUNT 7.2 K/UL (4.8-10.8)
[2020-05-19 05:17] LABS: ANION GAP 9 mmol/L (5-15); BLOOD UREA NITROGEN 28 mg/dL (7-18); CALCIUM 8.9 MG/DL (8.5-10.1); CARBON DIOXIDE 26 MMOL/L (21-32); CHLORIDE 106 MMOL/L (98-107); POTASSIUM 3.9 MMOL/L (3.5-5.1); SODIUM 141 MMOL/L (136-145)
--- NOTE | 2020-05-19 06:27 | Diagnostic Imaging Report ---
EXAM: XR Chest, 1 View CLINICAL HISTORY: SOB TECHNIQUE: Frontal view of the chest. COMPARISON: No relevant prior studies available. FINDINGS/IMPRESSION: No focal consolidation, pleural effusion, or pneumothorax. Mild chronically increased interstitial markings. Cardiomegaly. Calcified, tortuous aorta. Degenerative change of the spine and left shoulder.
--- NOTE | 2020-05-19 07:25 | NUR ---
HAND-OFF: Report given to KRYSTIAN Strickland. Patient in stable condition. Endorsed plan of course.
--- NOTE | 2020-05-19 07:45 | NUR ---
NURSE NOTES: Recvd report from Dunia BOLAND, Pt is asleep and laying in bed Venturi Mask 35% FiO2 at 100% O2 sat with no sign of sob or resp distress. Pt is on threat monitoring analyst running SR. Pt has 2 IV sites intact. Pt is on soft wrist restraints. Bed kept in lowest and locked position. bed alarm on. Will continue monitoring.
[2020-05-19 08:00] VITALS: BP 138/67
[2020-05-19] MEDS: Pantoprazole Inj IVP SCH (08:51)
[2020-05-19] MEDS: Losartan 25mg tab ORAL SCH (08:51)
[2020-05-19] MEDS: Meloxicam 15 MG TAB ORAL SCH (08:51)
[2020-05-19] MEDS: Enoxaparin 40mg Inj SUBQ SCH (08:57)
--- NOTE | 2020-05-19 09:00 | NUR ---
NURSE NOTES: Pt was observed pulling venturi mask and found on room air with 02 sat 97%. Pt was observed and maintaining good 02 sat.
--- NOTE | 2020-05-19 10:13 | Pulmonology Progress Note ---
Subjective Allergies: Coded Allergies: No Known Allergies (Unverified , 12/07/12) Subjective weaned from 100% NRM to 4 l O2 via NC afebrile, no leukocytosis CXR this am -> No focal consolidation, pleural effusion, or pneumothorax. Mild chronically increased interstitial markings. Objective Last 24 Hour Vital Signs Date Time Temp Pulse Resp B/P (MAP) Pulse Ox O2 Delivery O2 Flow Rate FiO2 05/19/20 09:23 98.1 05/19/20 08:51 138/67 05/19/20 08:00 Nasal Cannula 4.0 05/19/20 08:00 4.0 35 05/19/20 08:00 98.1 73 11 138/67 (90) 99 05/19/20 07:45 64 05/19/20 04:11 98.1 65 13 138/81 (100) 100 05/19/20 04:00 Nasal Cannula 4.0 05/19/20 04:00 4.0 35 05/19/20 03:29 98 05/19/20 00:00 Nasal Cannula 4.0 05/19/20 00:00 97.9 100 28 154/102 (119) 100 05/18/20 23:34 59 05/18/20 20:00 84 05/18/20 20:00 Nasal Cannula 4.0 05/18/20 20:00 97.5 82 18 130/67 (88) 100 05/18/20 20:00 4.0 35 05/18/20 19:22 99 Nasal Cannula 4.0 36 05/18/20 16:00 Nasal Cannula 4.0 05/18/20 16:00 89 05/18/20 16:00 4.0 35 05/18/20 16:00 98.1 69 16 125/53 (77) 100 05/18/20 12:12 4.0 35 05/18/20 12:00 97.7 67 16 125/46 (72) 100 05/18/20 12:00 Nasal Cannula 4.0 05/18/20 12:00 68 Intake and Output 05/18/20 05/19/20 19:00 07:00 Intake Total 300 ml 50 ml Balance 300 ml 50 ml Intake Oral 300 ml 50 ml # Voids 3 1 Objective General Appearance: no apparent distress, elderly poorly responsive thin female Lines, tubes and drains: peripheral HEENT: normocephalic, atraumatic, anicteric Neck: supple Respiratory/Chest: decreased breath sounds Abdomen: normal bowel sounds, non tender, soft Extremities: no calf tenderness, no edema Skin Exam: warm/dry Neurologic: awake, poorly responsive, moves all extremities Musculoskeletal: atrophy - BLE Microbiology Date/Time Source Procedure Growth Status 05/17/20 11:11 Blood Blood Culture - Preliminary NO GROWTH AFTER 24 HOURS Resulted 05/17/20 10:55 Blood Blood Culture - Preliminary NO GROWTH AFTER 24 HOURS Resulted 05/17/20 13:40 Nasopharynx SARS-CoV-2 RdRp Gene Assay - Final Complete 05/17/20 13:00 Nasal Nares MRSA Culture - Final NO METHICILLIN RESISTANT STAPH AUREUS... Complete 05/17/20 13:00 Rectum VRE Culture - Final NO VANCOMYCIN RESISTANT ENTEROCOCCUS ... Complete 05/17/20 13:00 Rectum - Final NO CARBAPENEM-RESISTANT ENTEROBACTERI... Complete Laboratory Tests 05/19/20 03:53: White Blood Count 7.2, Red Blood Count 3.89L, Hemoglobin 11.8L, Hematocrit 37.1 , Mean Corpuscular Volume 95, Mean Corpuscular Hemoglobin 30.2, Mean Corpuscular Hemoglobin Concent 31.7L, Red Cell Distribution Width 12.7, Platelet Count 283, Mean Platelet Volume 7.7, Neutrophils (%) (Auto) 65.9, Lymphocytes (%) (Auto) 25.8, Monocytes (%) (Auto) 8.0, Eosinophils (%) (Auto) 0.1, Basophils (%) (Auto) 0.3, Sodium Level 141, Potassium Level 3.9, Chloride Level 106, Carbon Dioxide Level 26, Anion Gap 9, Blood Urea Nitrogen 28H, Creatinine 1.0, Estimat Glomerular Filtration Rate 52.2, Glucose Level 82, Calcium Level 8.9 Current Medications Medications (Trade) Dose Ordered Sig/Hetal Route PRN Reason Start Time Stop Time Status Last Admin Dose Admin Acetaminophen (Tylenol) 650 mg Q4H PRN ORAL Mild Pain (Pain Scale 1-3) 05/17/20 20:45 06/16/20 20:44 05/19/20 08:53 Albuterol Sulfate (Proventil MDI) 2 puff Q4H PRN INH Shortness of Breath 05/18/20 08:15 08/16/20 08:14 Dexamethasone Sodium Phosphate (Decadron 4mg/ml vial) 6 mg DAILY IVP 05/18/20 09:00 05/27/20 08:59 05/19/20 08:51 Enoxaparin Sodium (Lovenox) 40 mg DAILY SUBQ 05/18/20 09:00 08/16/20 08:59 05/19/20 08:57 Gabapentin (Neurontin) 100 mg BID ORAL 05/18/20 09:00 06/17/20 08:59 05/19/20 08:51 Iohexol (Omnipaque 350 100ml) 100 ml NOW PRN INJ Radiology Procedure 05/17/20 12:15 05/19/20 12:14 Loperamide HCl (Imodium) 2 mg Q6H PRN ORAL Diarrhea 05/17/20 20:45 06/16/20 20:44 Lorazepam (Ativan 2mg/ml 1ml) 0.5 mg Q8H PRN IV For Anxiety 05/18/20 01:30 05/25/20 01:29 05/19/20 03:17 Losartan Potassium (Cozaar) 25 mg DAILY ORAL 05/18/20 09:00 06/17/20 08:59 05/19/20 08:51 Magnesium Hydroxide (Mom) 30 ml DAILYPRN PRN ORAL Constipation 05/17/20 20:45 06/16/20 20:44 Meloxicam (Mobic) 15 mg DAILY ORAL 05/18/20 09:00 06/17/20 08:59 05/19/20 08:51 Ondansetron HCl (Zofran) 4 mg Q4H PRN IVP Nausea & Vomiting 05/17/20 20:45 06/16/20 20:44 Pantoprazole (Protonix) 40 mg DAILY IVP 05/18/20 10:15 06/17/20 10:14 05/19/20 08:51 Assessment/Plan Assessment/Plan ASSESSMENT COVID-19 infection Acute hypoxemic respiratory failure, requiring 100% nonrebreathing mask- resolving Shortness of breath Acute kidney injury/azotemia/ likely due to dehydration Anemia Protein calorie malnutrition Hypertension Alzheimer dementia PLAN OF CARE EDUARDO isolation supplemental oxygen titrate to keep pulse ox above 92% MDI treatment trial of steroids ABG 05/18 done on 55 % VM, downgraded to 4L O2 via NC closely monitor respiratory status hold off abx given no evidence of pneumonia on CXR f/up with CXR 05/19 -> No focal consolidation, pleural effusion, or pneumothorax. Mild chronically increased interstitial markings. serial troponin negative, EKG no acute ischemic changes Echo with pEF 55-60% Venous duplex BLE pending DVT prophylaxis with LMWH GI prophylaxis, given pt on steroids and also NSAIDH inflammatory markers to assess risk for cytokine storm: D dimer 1.26, LDH 402, stable ferritin and CRP swallow evaluation noted, asp precautions dietary eval -> protein supplements monitor renal parameters, electrolytes ,avoid nephrotoxic, encourage hydration SNF medication resumed supportive care can be transferred to [facility] floor case discussed and evaluated by supervising physician Ginger Red NP May 19, 2020 10:13
--- NOTE | 2020-05-19 11:46 | NUR ---
SWALLOW STATUS/DYSPHAGIA MANAGEMENT PATIENT CLEARED FOR ST INTERVENTION BY KRYSTIAN ALBERT. PATIENT RECEIVED SUPINE IN BED. VITAL SIGNS: 98% 02 SAT, 15 RR, 4 LIT NC, 35% FIO2 SHE WAS REPOSITIONED FOR P.O. TRIALS OF NECTAR THICK LIQUIDS AND PUREE PRESENTED VIA SPOON IN 5 ML AMOUNTS. PATIENT LETHARGIC BUT COOPERATIVE IN MULTIPLE TRIALS: 12 5ML AMOUNTS OF WATER (NECTAR THICK) AND 10 VANILLA PUDDING. NO OVERT S/S OF ASPIRATION NOTED, BUT PATIENT OFTEN KEPT HER EYES CLOSED, RESIDUE NOTED ON LINGUAL SURFACE POST SWALLOW SOLIDS. DELAYED BOLUS PREPARATION/BOLUS TRANSIT. UPPER AIRWAY SOUNDS CLEAR PRE/POST SWALLOW CXR THIS MORNING: NEGATIVE FOR INFILTRATE Procedure: XRAY Chest 1v EXAM: XR Chest, 1 View CLINICAL HISTORY: SOB TECHNIQUE: Frontal view of the chest. COMPARISON: No relevant prior studies available. FINDINGS/IMPRESSION: No focal consolidation, pleural effusion, or pneumothorax. Mild chronically increased interstitial markings. Cardiomegaly. Calcified, tortuous aorta. Degenerative change of the spine and left shoulder. RECOMMENDATIONS: CONTINUE CURRENT DIET TOTAL ASSIST WITH MEALS ASPIRATION PRECAUTIONS CRUSH CRUSHABLE MEDS/PRESENT IN PUREE MBSS IF AVAILABLE
[2020-05-19 12:00] VITALS: BP 130/72
--- NOTE | 2020-05-19 12:18 | NUR ---
NURSE NOTES: Pt is still on room air with 02 sat 100%
--- NOTE | 2020-05-19 14:41 | NUR ---
CASE MANAGEMENT: REVIEW 05/19/2020 SI:COVID-19 infection. Acute hypoxemic respiratory failure. VS: T 98.1 HR 63 RR 14 B/P 130/72 SATS 100% ON RA LABS: BUN 28 IS;GABAPENTIN PO BID COZAAR PO QD DECADRON IV QD MOBIC PO QD SDU PLAN OF CARE: supplemental oxygen titrate to keep pulse ox above 92% MDI treatment trial of steroids
[2020-05-19 16:00] VITALS: BP 144/84
--- NOTE | 2020-05-19 17:00 | NUR ---
CASE MANAGEMENT: NOTE TENTATIVE ROOM PROVIDED BY [facility] ROOM [id number]
--- NOTE | 2020-05-19 18:03 | Internal Med Progress Note ---
Subjective Date of Service: May 19, 2020 Physician Name Dimas nAderson Attending Physician Mannie Packer MD Current Medications Medications (Trade) Dose Ordered Sig/Hetal Route PRN Reason Start Time Stop Time Status Last Admin Dose Admin Acetaminophen (Tylenol) 650 mg Q4H PRN ORAL Mild Pain (Pain Scale 1-3) 05/17/20 20:45 06/16/20 20:44 05/19/20 08:53 Albuterol Sulfate (Proventil MDI) 2 puff Q4H PRN INH Shortness of Breath 05/18/20 08:15 08/16/20 08:14 Dexamethasone Sodium Phosphate (Decadron 4mg/ml vial) 6 mg DAILY IVP 05/18/20 09:00 05/27/20 08:59 05/19/20 08:51 Enoxaparin Sodium (Lovenox) 40 mg DAILY SUBQ 05/18/20 09:00 08/16/20 08:59 05/19/20 08:57 Gabapentin (Neurontin) 100 mg BID ORAL 05/18/20 09:00 06/17/20 08:59 05/19/20 08:51 Loperamide HCl (Imodium) 2 mg Q6H PRN ORAL Diarrhea 05/17/20 20:45 06/16/20 20:44 Lorazepam (Ativan 2mg/ml 1ml) 0.5 mg Q8H PRN IV For Anxiety 05/18/20 01:30 05/25/20 01:29 05/19/20 03:17 Losartan Potassium (Cozaar) 25 mg DAILY ORAL 05/18/20 09:00 06/17/20 08:59 05/19/20 08:51 Magnesium Hydroxide (Mom) 30 ml DAILYPRN PRN ORAL Constipation 05/17/20 20:45 06/16/20 20:44 Meloxicam (Mobic) 15 mg DAILY ORAL 05/18/20 09:00 06/17/20 08:59 05/19/20 08:51 Ondansetron HCl (Zofran) 4 mg Q4H PRN IVP Nausea & Vomiting 05/17/20 20:45 06/16/20 20:44 Pantoprazole (Protonix) 40 mg DAILY IVP 05/18/20 10:15 06/17/20 10:14 05/19/20 08:51 Allergies: Coded Allergies: No Known Allergies (Unverified , 12/07/12) ROS Limited/Unobtainable: Yes Subjective 89 YO F admitted with COVID 19 pneumonia. Cover for Int Jac-DR Packer. Step Down unit Objective Last Vital Signs Date Time Temp Pulse Resp B/P (MAP) Pulse Ox O2 Delivery O2 Flow Rate FiO2 05/19/20 16:00 60 05/19/20 16:00 97.1 15 144/84 (104) 99 05/19/20 16:00 Room Air 05/19/20 08:15 21 05/19/20 08:00 4.0 Laboratory Tests Test 05/19/20 03:53 White Blood Count 7.2 K/UL (4.8-10.8) Red Blood Count 3.89 M/UL (4.20-5.40) L Hemoglobin 11.8 G/DL (12.0-16.0) L Hematocrit 37.1 % (37.0-47.0) Mean Corpuscular Volume 95 FL (80-99) Mean Corpuscular Hemoglobin 30.2 PG (27.0-31.0) Mean Corpuscular Hemoglobin Concent 31.7 G/DL (32.0-36.0) L Red Cell Distribution Width 12.7 % (11.6-14.8) Platelet Count 283 K/UL (150-450) Mean Platelet Volume 7.7 FL (6.5-10.1) Neutrophils (%) (Auto) 65.9 % (45.0-75.0) Lymphocytes (%) (Auto) 25.8 % (20.0-45.0) Monocytes (%) (Auto) 8.0 % (1.0-10.0) Eosinophils (%) (Auto) 0.1 % (0.0-3.0) Basophils (%) (Auto) 0.3 % (0.0-2.0) Sodium Level 141 MMOL/L (136-145) Potassium Level 3.9 MMOL/L (3.5-5.1) Chloride Level 106 MMOL/L (98-107) Carbon Dioxide Level 26 MMOL/L (21-32) Anion Gap 9 mmol/L (5-15) Blood Urea Nitrogen 28 mg/dL (7-18) H Creatinine 1.0 MG/DL (0.55-1.30) Estimat Glomerular Filtration Rate 52.2 mL/min (>60) Glucose Level 82 MG/DL (74-106) Calcium Level 8.9 MG/DL (8.5-10.1) Microbiology Date/Time Source Procedure Growth Status 05/17/20 11:11 Blood Blood Culture - Preliminary NO GROWTH AFTER 24 HOURS Resulted 05/17/20 10:55 Blood Blood Culture - Preliminary NO GROWTH AFTER 24 HOURS Resulted 05/17/20 13:40 Nasopharynx SARS-CoV-2 RdRp Gene Assay - Final Complete 05/17/20 13:00 Nasal Nares MRSA Culture - Final NO METHICILLIN RESISTANT STAPH AUREUS... Complete 05/17/20 13:00 Rectum VRE Culture - Final NO VANCOMYCIN RESISTANT ENTEROCOCCUS ... Complete 05/17/20 13:00 Rectum - Final NO CARBAPENEM-RESISTANT ENTEROBACTERI... Complete Intake and Output 05/18/20 05/19/20 19:00 07:00 Intake Total 300 ml 50 ml Balance 300 ml 50 ml Intake Oral 300 ml 50 ml # Voids 3 1 Objective PHYSICAL EXAMINATION: GENERAL: The patient is a thin-appearing, female, in no apparent distress. HEENT: Eyes, pupils are equal and responsive to light and accommodation. Extraocular movements are intact. NECK: Supple without lymphadenopathy. CHEST: Decreased breath sounds to bilateral bases. Otherwise, clear to auscultation without wheezes or rales. CARDIOVASCULAR: Regular rhythm and rate. S1, S2 are normal without murmurs, rubs, or gallops. ABDOMEN: Soft, nontender, and nondistended. Positive bowel sounds. No evidence of hepatosplenomegaly. Currently, no rebound or guarding noted. EXTREMITIES: Negative for clubbing, cyanosis, or edema. RECTAL/GENITAL: Not performed. NEUROLOGIC: Cranial nerves II to XII are grossly intact without focal deficits. Motor strength is 5/5 bilaterally. Deep tendon reflexes are 2+ plantar. Assessment/Plan Assessment/Plan ASSESSMENT: This is an 89-year-old female with: 1. COVID-19 positive. 2. Probable COVID-19 pneumonia. 3. Hypertension. 4. Alzheimer's dementia. TREATMENT: 1. COVID-19 positive. An Infectious Disease consultation has been obtained with Dr. Strickland. A Pulmonary consultation has been obtained with Dr. Thania Chung. The patient has been started empirically on Decadron intravenously. Follow recommendations of Pulmonary and Infectious Disease. 2. Hypertension. Continue losartan as above. 3. Alzheimer's dementia. Dimas Anderson MD May 19, 2020 18:03
--- NOTE | 2020-05-19 19:20 | NUR ---
NURSE NOTES: Report received from KRYSTIAN Strickland. Patient awake in bed, afebrile and no respiratory distress noted. on RA with 98-99% saturation. With Left FA 20g Iv line intact, symptomatic and flushed. Both soft wrist restraints on and intact. Skin assessment done and no new changes noted. Palpable pulse. No paresthesia noted.Needs were attended. Call light within reach. Bed rails are up and wheels are locked. Continue plan of care
[2020-05-19 20:00] VITALS: BP 115/66
--- NOTE | 2020-05-19 22:04 | NUR ---
NURSE NOTES: Pt was noted calm, asleep and not restless on the bed. Removed and D/C restraints. Skin assessment done. No new ski =n changes noted. Palpable pulses, skin is intact, PROM done no discomforts and no a[paresthesia noted. Continue to monitor the patient.
[2020-05-20] VITALS: BP 123/63
--- NOTE | 2020-05-20 02:33 | NUR ---
NURSE NOTES: Pt was noted restless trying to remove monitor car operator, Iv line. PT was assisted to changing gown and pt trying to hold on LNs gowns. Initiated Restraints then Md was notified. Carried out order for Both wrist soft restraints
[2020-05-20] MEDS: LORazepam Inj 2mg/ml 1ml IV PRN (03:21)
[2020-05-20 04:00] VITALS: BP 110/65
[2020-05-20 04:39] LABS: BASOPHILS % (AUTO) 0.8 % (0.0-2.0); EOSINOPHILS % (AUTO) 0.1 % (0.0-3.0); HEMATOCRIT 35.1 % (37.0-47.0); HEMOGLOBIN 11.1 G/DL (12.0-16.0); LYMPHOCYTES % (AUTO) 31.9 % (20.0-45.0); MEAN CORPUSCULAR VOLUME 95 FL (80-99); MONOCYTES % (AUTO) 9.1 % (1.0-10.0); NEUTROPHILS % (AUTO) 58.2 % (45.0-75.0); PLATELET COUNT 266 K/UL (150-450); RED CELL DISTRIBUTION WIDTH 12.7 % (11.6-14.8); WHITE BLOOD COUNT 7.1 K/UL (4.8-10.8)
[2020-05-20 04:51] LABS: ANION GAP 11 mmol/L (5-15); BLOOD UREA NITROGEN 25 mg/dL (7-18); CALCIUM 8.8 MG/DL (8.5-10.1); CARBON DIOXIDE 23 MMOL/L (21-32); CHLORIDE 107 MMOL/L (98-107); POTASSIUM 4.1 MMOL/L (3.5-5.1); SODIUM 141 MMOL/L (136-145)
--- NOTE | 2020-05-20 07:15 | NUR ---
HAND-OFF: Report given to Debbie Bravo.Pt stable and in bed.
--- NOTE | 2020-05-20 07:20 | NUR ---
NURSE NOTES: Report received from DORI Pressley RN.Pt awake alert confused noted no resp distress on RA,no signs of pain or discomfort,SR on the monitor,pt restless,moving all over the bed,with bilat wrist restraints in placed,SR up x2 HOB elevated,bed lock in lowest position,skin warm and dry IV heplock to LFA intact,will continue to monitor.
[2020-05-20 08:00] VITALS: BP 111/61
--- NOTE | 2020-05-20 09:59 | NUR ---
RD ASSESSMENT & RECOMMENDATIONS SEE CARE ACTIVITY FOR COMPLETE ASSESSMENT DAILY ESTIMATED NEEDS: Needs based on Pulmonary 53kg 25-30 kcals/kg 5582-0137 total kcals 1-1.5 g protein/kg 53-80 g total protein 20-30ml/kcal mL/kg 2784-0880 total fluid mLs NUTRITION DIAGNOSIS: Swallowing difficulty r/t dementia, confusion as evidenced by pt on pureed moist texture diet w/ NTL per DIG[employer] STRATE[employer] SPECIALIST rec, w/ fair PO intake at this time. CURRENT DIET:LOW NA, pureed moist w/ NTL PO DIET RECOMMENDATIONS: liberalized REGULAR/ texture per [employer] STRATE[employer] SPECIALIST ADDITIONAL RECOMMENDATIONS: 1) Continue Ensure Enlive w/ meals 2) Monitor BGs w/ decadron 3) Maintain calibrated bed scale wts 4) MVI x 1 as supplement 5) Rec liberalized regular diet given advancing age and to maximize PO acceptance
[2020-05-20] MEDS: Losartan 25mg tab ORAL SCH (10:12)
[2020-05-20] MEDS: Pantoprazole Inj IVP SCH (10:13)
[2020-05-20] MEDS: Meloxicam 15 MG TAB ORAL SCH (10:14)
[2020-05-20] MEDS: Enoxaparin 40mg Inj SUBQ SCH (10:15)
--- NOTE | 2020-05-20 12:00 | NUR ---
CASE MANAGEMENT: REVIEW 05/20/2020 SI:COVID-19 infection. Acute hypoxemic respiratory failure. VS: T 97.7 HR 74 RR 15 B/P 111/61 SATS 100% ON RA LABS: BUN 25 IS;GABAPENTIN PO BID COZAAR PO QD DECADRON IV QD MOBIC PO QD SDU PLAN OF CARE: ST EVAL ASPIRATION PRECAUTION
--- NOTE | 2020-05-20 12:03 | NUR ---
CASE MANAGEMENT: NOTE DC ORDER REQUESTED FROM MD. AWAITING REPLY PT WITH DOWNGRADE TO TELE ORDER
[2020-05-20 12:06] VITALS: BP 97/56
--- NOTE | 2020-05-20 12:20 | Pulmonology Progress Note ---
Subjective ROS Limited/Unobtainable: Yes Allergies: Coded Allergies: No Known Allergies (Unverified , 12/07/12) All Systems: reviewed and negative except above Objective Last 24 Hour Vital Signs Date Time Temp Pulse Resp B/P (MAP) Pulse Ox O2 Delivery O2 Flow Rate FiO2 05/20/20 12:06 97.9 71 19 97/56 (70) 100 05/20/20 12:00 Room Air 05/20/20 10:12 111/61 05/20/20 08:00 97.7 74 15 111/61 (78) 100 05/20/20 08:00 55 05/20/20 08:00 Room Air 05/20/20 04:00 98.4 64 14 110/65 (80) 100 05/20/20 04:00 Room Air 05/20/20 03:34 68 05/20/20 00:00 74 05/20/20 00:00 Room Air 05/20/20 00:00 98.0 61 14 123/63 (83) 100 05/19/20 20:11 100 Room Air 21 05/19/20 20:00 98.1 68 16 115/66 (82) 100 05/19/20 20:00 Room Air 05/19/20 19:36 71 05/19/20 16:00 60 05/19/20 16:00 97.1 88 15 144/84 (104) 99 05/19/20 16:00 Room Air Intake and Output 05/19/20 05/20/20 19:00 07:00 Intake Total 540 ml 50 ml Balance 540 ml 50 ml Intake Oral 540 ml 50 ml # Voids 3 2 # Bowel Movements 3 General Appearance: cachetic HEENT: normocephalic, atraumatic Respiratory: chest wall non-tender, rhonchi - left, rhonchi - right Cardiovascular: normal peripheral pulses, normal rate Abdomen: normal bowel sounds, soft, non tender Genitourinary: normal external genitalia Extremities: no cyanosis Skin: no rash, no ulcers 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 Complete 05/17/20 13:00 Rectum VRE Culture - Final NO VANCOMYCIN RESISTANT ENTEROCOCCUS ... Complete 05/17/20 13:00 Rectum - Final NO CARBAPENEM-RESISTANT ENTEROBACTERI... Complete Laboratory Tests 05/20/20 03:20: White Blood Count 7.1, Red Blood Count 3.70L, Hemoglobin 11.1L, Hematocrit 35.1L , Mean Corpuscular Volume 95, Mean Corpuscular Hemoglobin 30.1, Mean Corpuscular Hemoglobin Concent 31.7L, Red Cell Distribution Width 12.7, Platelet Count 266, Mean Platelet Volume 7.2, Neutrophils (%) (Auto) 58.2, Lymphocytes (%) (Auto) 31.9, Monocytes (%) (Auto) 9.1, Eosinophils (%) (Auto) 0.1, Basophils (%) (Auto) 0.8, Sodium Level 141, Potassium Level 4.1, Chloride Level 107, Carbon Dioxide Level 23, Anion Gap 11, Blood Urea Nitrogen 25H, Creatinine 1.0, Estimat Glomerular Filtration Rate 52.2, Glucose Level 90, Calcium Level 8.8, C-Reactive Protein, Quantitative < 0.4 Current Medications Medications (Trade) Dose Ordered Sig/Hetal Route PRN Reason Start Time Stop Time Status Last Admin Dose Admin Acetaminophen (Tylenol) 650 mg Q4H PRN ORAL Mild Pain (Pain Scale 1-3) 05/17/20 20:45 06/16/20 20:44 05/19/20 08:53 Albuterol Sulfate (Proventil MDI) 2 puff Q4H PRN INH Shortness of Breath 05/18/20 08:15 08/16/20 08:14 Dexamethasone Sodium Phosphate (Decadron 4mg/ml vial) 6 mg DAILY IVP 05/18/20 09:00 05/27/20 08:59 05/20/20 10:13 Enoxaparin Sodium (Lovenox) 40 mg DAILY SUBQ 05/18/20 09:00 08/16/20 08:59 05/20/20 10:15 Gabapentin (Neurontin) 100 mg BID ORAL 05/18/20 09:00 06/17/20 08:59 05/20/20 10:14 Loperamide HCl (Imodium) 2 mg Q6H PRN ORAL Diarrhea 05/17/20 20:45 06/16/20 20:44 Lorazepam (Ativan 2mg/ml 1ml) 0.5 mg Q8H PRN IV For Anxiety 05/18/20 01:30 05/25/20 01:29 05/20/20 03:21 Losartan Potassium (Cozaar) 25 mg DAILY ORAL 05/18/20 09:00 06/17/20 08:59 05/20/20 10:12 Magnesium Hydroxide (Mom) 30 ml DAILYPRN PRN ORAL Constipation 05/17/20 20:45 06/16/20 20:44 Meloxicam (Mobic) 15 mg DAILY ORAL 05/18/20 09:00 06/17/20 08:59 05/20/20 10:14 Ondansetron HCl (Zofran) 4 mg Q4H PRN IVP Nausea & Vomiting 05/17/20 20:45 06/16/20 20:44 Pantoprazole (Protonix) 40 mg DAILY IVP 05/18/20 10:15 06/17/20 10:14 05/20/20 10:13 Assessment/Plan Problems: (1) 2019 novel coronavirus disease (COVID-19) (2) Respiratory distress (3) Anemia (4) History of hypertension (5) CAD (coronary artery disease) (6) Alzheimer's dementia Assessment/Plan respiratory treatment all reviewed echo reviewed, EF 60% CT angio to rule out PE was useless. check V/Q scan and venous doppler of legs. monitor BP cardiology to evaluate for abnormal EKG symptomatic treatment. Thania Chung MD May 20, 2020 12:20
--- NOTE | 2020-05-20 12:28 | NUR ---
NURSE NOTES: Pt stable ate 100% of breakfast and lunch no aspiration presented,no sob noted,pt continue on RA.
--- NOTE | 2020-05-20 13:05 | Consultation ---
History of Present Illness General Date patient seen: May 20, 2020 Chief Complaint: Dyspnea/Respdistress Referring physician: dr Packer Reason for Consultation: hypoxia, + COVID Present Illness HPI 89 y/o F with hx of HTN, Alzheimer's Dementia, recent diagnosis COVID19 (05/11), SNF resident ([facility]) presented to ED on 04/2820 with SOB; patient was hypoxic 84% at RA and placed on NRB and increased to 94%. Allergies: Coded Allergies: No Known Allergies (Unverified , 12/07/12) Medication History Scheduled Celecoxib* (Celebrex*), 200 MG PO DAILY, (Reported) Gabapentin* (Gabapentin*), 100 MG ORAL BID, (Reported) Magnesium Hydroxide* (Milk Of Magnesia*), 30 ML ORAL DAILY, (Reported) Scheduled PRN Acetaminophen* (Acetaminophen 325MG Tablet*), 650 MG ORAL Q4H PRN for For Pain, (Reported) Miscellaneous Medications Loperamide Hcl (Loperamide), 2 MG PO, (Reported) Losartan Potassium (Losartan Potassium), 25 MG PO, (Reported) Discontinued Medications Aspirin Ec* (Aspirin Ec*), 81 MG PO DAILY, (Reported) Discontinued Reason: Therapy completed Beta-Carotene(A) W-C & E/Min (Prosight Tablet), 1 EA PO DAILY, (Reported) Discontinued Reason: Therapy completed Diclofenac Sodium (Diclofenac Sodium*), 1 DROP BOTH EYES QID, (Reported) Discontinued Reason: Therapy completed Escitalopram Oxalate (Lexapro), 10 MG PO HS, (Reported) Discontinued Reason: Therapy completed Meloxicam* (Mobic*), 15 MG PO DAILY, (Reported) Discontinued Reason: Therapy completed Olopatadine Hcl (Pataday), 1 DRP BOTH EYES DAILY, (Reported) Discontinued Reason: Therapy completed Rivastigmine Tartrate (Exelon), 13.3 MG TD DAILY, (Reported) Discontinued Reason: Therapy completed Valsartan/Hydrochlorothiazide 160-12.5MG (Diovan Hct 160-12.5 Mg Tab), 1 TAB PO DAILY, (Reported) Discontinued Reason: Therapy completed [Forted Injection], 20 MCG SUBQ DAILY, (Reported) Discontinued Reason: Therapy completed [Voltaren Gel], 1 % TOPIC DAILY, (Reported) Discontinued Reason: Therapy completed Patient History Healthcare decision maker Resuscitation status Advanced Directive on File Patient History Narrative Pmhx: as above Shx: The patient is single and resident of [facility]. The patient denies tobacco or alcohol use. Fhx: non contributory Review of Systems All Other Systems: negative except mentioned in HPI Physical Exam Physical Exam Narrative GENERAL: The patient is a thin-appearing, female, in no apparent distress. HEENT: Eyes, pupils are equal and responsive to light and accommodation. Extraocular movements are intact. NECK: Supple without lymphadenopathy. CHEST: Decreased breath sounds to bilateral bases. Otherwise, clear to auscultation without wheezes or rales. CARDIOVASCULAR: Regular rhythm and rate. S1, S2 are normal without murmurs, rubs, or gallops. ABDOMEN: Soft, nontender, and nondistended. Positive bowel sounds. No evidence of hepatosplenomegaly. Currently, no rebound or guarding noted. Last 24 Hour Vital Signs Date Time Temp Pulse Resp B/P (MAP) Pulse Ox O2 Delivery O2 Flow Rate FiO2 05/20/20 12:06 97.9 71 19 97/56 (70) 100 05/20/20 12:00 Room Air 05/20/20 10:12 111/61 05/20/20 08:00 97.7 74 15 111/61 (78) 100 05/20/20 08:00 55 05/20/20 08:00 Room Air 05/20/20 04:00 98.4 64 14 110/65 (80) 100 05/20/20 04:00 Room Air 05/20/20 03:34 68 05/20/20 00:00 74 05/20/20 00:00 Room Air 05/20/20 00:00 98.0 61 14 123/63 (83) 100 05/19/20 20:11 100 Room Air 21 05/19/20 20:00 98.1 68 16 115/66 (82) 100 05/19/20 20:00 Room Air 05/19/20 19:36 71 05/19/20 16:00 60 05/19/20 16:00 97.1 88 15 144/84 (104) 99 05/19/20 16:00 Room Air Intake and Output 05/19/20 05/20/20 19:00 07:00 Intake Total 540 ml 50 ml Balance 540 ml 50 ml Intake Oral 540 ml 50 ml # Voids 3 2 # Bowel Movements 3 Laboratory Tests Test 05/20/20 03:20 White Blood Count 7.1 K/UL (4.8-10.8) Red Blood Count 3.70 M/UL (4.20-5.40) L Hemoglobin 11.1 G/DL (12.0-16.0) L Hematocrit 35.1 % (37.0-47.0) L Mean Corpuscular Volume 95 FL (80-99) Mean Corpuscular Hemoglobin 30.1 PG (27.0-31.0) Mean Corpuscular Hemoglobin Concent 31.7 G/DL (32.0-36.0) L Red Cell Distribution Width 12.7 % (11.6-14.8) Platelet Count 266 K/UL (150-450) Mean Platelet Volume 7.2 FL (6.5-10.1) Neutrophils (%) (Auto) 58.2 % (45.0-75.0) Lymphocytes (%) (Auto) 31.9 % (20.0-45.0) Monocytes (%) (Auto) 9.1 % (1.0-10.0) Eosinophils (%) (Auto) 0.1 % (0.0-3.0) Basophils (%) (Auto) 0.8 % (0.0-2.0) Sodium Level 141 MMOL/L (136-145) Potassium Level 4.1 MMOL/L (3.5-5.1) Chloride Level 107 MMOL/L (98-107) Carbon Dioxide Level 23 MMOL/L (21-32) Anion Gap 11 mmol/L (5-15) Blood Urea Nitrogen 25 mg/dL (7-18) H Creatinine 1.0 MG/DL (0.55-1.30) Estimat Glomerular Filtration Rate 52.2 mL/min (>60) Glucose Level 90 MG/DL (74-106) Calcium Level 8.8 MG/DL (8.5-10.1) C-Reactive Protein, Quantitative < 0.4 mg/dL (0.00-0.90) Height (Feet): 5 Height (Inches): 3.00 Weight (Pounds): 117 Medications Current Medications Medications (Trade) Dose Ordered Sig/Hetal Route PRN Reason Start Time Stop Time Status Last Admin Dose Admin Acetaminophen (Tylenol) 650 mg Q4H PRN ORAL Mild Pain (Pain Scale 1-3) 05/17/20 20:45 06/16/20 20:44 05/19/20 08:53 Albuterol Sulfate (Proventil MDI) 2 puff Q4H PRN INH Shortness of Breath 05/18/20 08:15 08/16/20 08:14 Dexamethasone Sodium Phosphate (Decadron 4mg/ml vial) 6 mg DAILY IVP 05/18/20 09:00 05/27/20 08:59 05/20/20 10:13 Enoxaparin Sodium (Lovenox) 40 mg DAILY SUBQ 05/18/20 09:00 08/16/20 08:59 05/20/20 10:15 Gabapentin (Neurontin) 100 mg BID ORAL 05/18/20 09:00 06/17/20 08:59 05/20/20 10:14 Loperamide HCl (Imodium) 2 mg Q6H PRN ORAL Diarrhea 05/17/20 20:45 06/16/20 20:44 Lorazepam (Ativan 2mg/ml 1ml) 0.5 mg Q8H PRN IV For Anxiety 05/18/20 01:30 05/25/20 01:29 05/20/20 03:21 Losartan Potassium (Cozaar) 25 mg DAILY ORAL 05/18/20 09:00 06/17/20 08:59 05/20/20 10:12 Magnesium Hydroxide (Mom) 30 ml DAILYPRN PRN ORAL Constipation 05/17/20 20:45 06/16/20 20:44 Meloxicam (Mobic) 15 mg DAILY ORAL 05/18/20 09:00 06/17/20 08:59 05/20/20 10:14 Ondansetron HCl (Zofran) 4 mg Q4H PRN IVP Nausea & Vomiting 05/17/20 20:45 06/16/20 20:44 Pantoprazole (Protonix) 40 mg DAILY IVP 05/18/20 10:15 06/17/20 10:14 05/20/20 10:13 Assessment/Plan Assessment/Plan: Abx: None Assessment: COVID19 confirmed- ?PNA- no apparent PNA on CXR or CT chest Acute hypoxic resp failure, SP- now at , no hypoxia on ABG -dx'ed on 05/11 at [facility] [place]05/19 CXR: No focal consolidation, pleural effusion, or pneumothorax. Mild chronically increased interstitial markings. -05/17 CTA chest: STUDY LIMITED DUE TO RESPIRATORY MOTION ARTIFACT.NO LARGE CENTRAL EMBOLISM. NO DEFINITE PERIPHERAL SMALL SUBSEGMENTAL PULMONARY EMBOLI TO THE EXTENT VISUALIZED. 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 GALLSTONE. -05/17 CXR: no acute disease rapid COVID PCR + inflammatory markers normal Afebrile No leukocytosis -05/17 u/a neg Bcx NTD HTN Alzheimer's Dementia recent diagnosis COVID19 (05/11) SNF resident ([facility]) Plan: -Continue to monitor off abx -on Decadron per pulm -Will consider Remdesevir if requiring O2 supplement -f/u cx -Monitor CBC/CMP, temperatures -COVID19 isolation Thank you for this consultation. Will continue to follow along with you. Discussed with Xin Story M.D. May 20, 2020 13:05
--- NOTE | 2020-05-20 15:00 | NUR ---
NURSE NOTES: Pt brought downstairs per bed for V/Q Scan accompanied by Dante awake,alert confused,with bilat wrist restraints in placed.
--- NOTE | 2020-05-20 15:15 | NUR ---
TRANSFER TO FLOOR: Patient will be transferred to Telemetry room 206, per bed after coming back from V/Q Scan. Report given Krystle BOLAND. Belongings given to receiving RN.
--- NOTE | 2020-05-20 15:30 | NUR ---
NURSE NOTES: Received report from KRYSTIAN Bravo. Pt brought back by 1530 PacketVideoDante. Pt is found stable and sitting in bed. Restraints on L and R wrists; pulse present, skin intact, and capillary refill <3 seconds. Pt exhibits no S/S or complaints of distress at this time. Pt bed low and locked, call light in reach, and bed alarm on. Will continue to monitor.
[2020-05-20 16:00] VITALS: BP 123/96
[2020-05-20] MEDS ORDERED: LORazepam Inj 2mg/ml 1ml IV PRN (16:00)
[2020-05-20] MEDS ORDERED: Albuterol 90mcg Inhaler 8gm INH PRN (16:00)
[2020-05-20] MEDS ORDERED: Milk of Magnesia 30ml Ud ORAL PRN (16:00)
--- NOTE | 2020-05-20 17:10 | Diagnostic Imaging Report ---
Indication: Chest pain shortness of breath Technique: A ventilation/perfusion scan was performed. Perfusion was performed with 5.5 mCi of technetium 99m-MAA injected intravenously. Anterior and posterior planar projections as well as oblique and lateral projections obtained. No ventilation imaging was performed as patient COVID positive FINDINGS: Limited exam as no ventilation imaging was performed. Also, per technologist report patient not cooperative with exam positioning. Within these limitations: There is expected photopenia in the region of the cardiac shadow. Small perfusion defects noted in the periphery of the left lower lung on posterior and LPO images but not definitively seen on the other projections. Otherwise perfusion appears homogeneous. IMPRESSION: Limited exam as above. Within these limitations: Overall findings suggesting low probability for pulmonary embolism. Recommend more definitive evaluation with CT angiogram of the chest as clinically indicated.
--- NOTE | 2020-05-20 18:54 | Cardiology Progress Note ---
Assessment/Plan Assessment/Plan ekg noted full reprot to follow covid + Objective Last 24 Hour Vital Signs Date Time Temp Pulse Resp B/P (MAP) Pulse Ox O2 Delivery O2 Flow Rate FiO2 05/20/20 16:00 93 05/20/20 16:00 Room Air 05/20/20 16:00 97.7 89 20 123/96 (105) 97 05/20/20 12:06 97.9 71 19 97/56 (70) 100 05/20/20 12:00 75 05/20/20 12:00 Room Air 05/20/20 11:39 75 05/20/20 10:12 111/61 05/20/20 08:00 97.7 74 15 111/61 (78) 100 05/20/20 08:00 55 05/20/20 08:00 Room Air 05/20/20 04:00 98.4 64 14 110/65 (80) 100 05/20/20 04:00 Room Air 05/20/20 03:34 68 05/20/20 00:00 74 05/20/20 00:00 Room Air 05/20/20 00:00 98.0 61 14 123/63 (83) 100 05/19/20 20:11 100 Room Air 21 05/19/20 20:00 98.1 68 16 115/66 (82) 100 05/19/20 20:00 Room Air 05/19/20 19:36 71 Intake and Output 05/19/20 05/20/20 19:00 07:00 Intake Total 540 ml 50 ml Balance 540 ml 50 ml Intake Oral 540 ml 50 ml # Voids 3 2 # Bowel Movements 3 Laboratory Tests Test 05/20/20 03:20 05/20/20 14:05 White Blood Count 7.1 K/UL (4.8-10.8) Red Blood Count 3.70 M/UL (4.20-5.40) L Hemoglobin 11.1 G/DL (12.0-16.0) L Hematocrit 35.1 % (37.0-47.0) L Mean Corpuscular Volume 95 FL (80-99) Mean Corpuscular Hemoglobin 30.1 PG (27.0-31.0) Mean Corpuscular Hemoglobin Concent 31.7 G/DL (32.0-36.0) L Red Cell Distribution Width 12.7 % (11.6-14.8) Platelet Count 266 K/UL (150-450) Mean Platelet Volume 7.2 FL (6.5-10.1) Neutrophils (%) (Auto) 58.2 % (45.0-75.0) Lymphocytes (%) (Auto) 31.9 % (20.0-45.0) Monocytes (%) (Auto) 9.1 % (1.0-10.0) Eosinophils (%) (Auto) 0.1 % (0.0-3.0) Basophils (%) (Auto) 0.8 % (0.0-2.0) Sodium Level 141 MMOL/L (136-145) Potassium Level 4.1 MMOL/L (3.5-5.1) Chloride Level 107 MMOL/L (98-107) Carbon Dioxide Level 23 MMOL/L (21-32) Anion Gap 11 mmol/L (5-15) Blood Urea Nitrogen 25 mg/dL (7-18) H Creatinine 1.0 MG/DL (0.55-1.30) Estimat Glomerular Filtration Rate 52.2 mL/min (>60) Glucose Level 90 MG/DL (74-106) Calcium Level 8.8 MG/DL (8.5-10.1) C-Reactive Protein, Quantitative < 0.4 mg/dL (0.00-0.90) D-Dimer 0.61 mg/L FEU (0.00-0.49) H Oneal Pickens MD May 20, 2020 18:54
--- NOTE | 2020-05-20 19:15 | NUR ---
HAND-OFF: Report given to KRYSTIAN Cole. Plan of care endorsed.
--- NOTE | 2020-05-20 19:49 | NUR ---
NURSE NOTES: Received patient in bed, awake, alert, oriented x1/2, speaks Romansh, patient is confused and disoriented, on room air, incontinent of bowel and bladder. IV site is clean dry and intact, fall and aspiration precautions are implemented. Call light is within reach, bed is lowered, locked, alarm is on, will continue to monitor for comfort and safety.
[2020-05-20 20:00] VITALS: BP 140/63
--- NOTE | 2020-05-20 20:03 | Internal Med Progress Note ---
Subjective Physician Name Mannie Packer Attending Physician Mannie Packer MD Current Medications Medications (Trade) Dose Ordered Sig/Hetal Route PRN Reason Start Time Stop Time Status Last Admin Dose Admin Acetaminophen (Tylenol) 650 mg Q4H PRN ORAL Mild Pain (Pain Scale 1-3) 05/20/20 15:30 06/16/20 15:29 Albuterol Sulfate (Proventil MDI) 2 puff Q4H PRN INH Shortness of Breath 05/20/20 16:00 08/16/20 15:59 Dexamethasone Sodium Phosphate (Decadron 4mg/ml vial) 6 mg DAILY IVP 05/21/20 09:00 05/27/20 08:59 Enoxaparin Sodium (Lovenox) 40 mg DAILY SUBQ 05/21/20 09:00 08/16/20 08:59 Gabapentin (Neurontin) 100 mg BID ORAL 05/20/20 18:00 06/17/20 08:59 05/20/20 18:27 Loperamide HCl (Imodium) 2 mg Q6H PRN ORAL Diarrhea 05/20/20 16:00 06/16/20 15:59 Lorazepam (Ativan 2mg/ml 1ml) 0.5 mg Q8H PRN IV For Anxiety 05/20/20 16:00 05/25/20 15:59 Losartan Potassium (Cozaar) 25 mg DAILY ORAL 05/21/20 09:00 06/17/20 08:59 Magnesium Hydroxide (Mom) 30 ml DAILYPRN PRN ORAL Constipation 05/20/20 16:00 06/16/20 15:59 Meloxicam (Mobic) 15 mg DAILY ORAL 05/21/20 09:00 06/17/20 08:59 Ondansetron HCl (Zofran) 4 mg Q4H PRN IVP Nausea & Vomiting 05/20/20 16:00 06/16/20 15:59 Pantoprazole (Protonix) 40 mg DAILY IVP 05/21/20 09:00 06/17/20 10:14 Allergies: Coded Allergies: No Known Allergies (Unverified , 12/07/12) Subjective In [place] [address] respiratory isolation room, patient in room air, confused, decreased oral intake . Objective Last Vital Signs Date Time Temp Pulse Resp B/P (MAP) Pulse Ox O2 Delivery O2 Flow Rate FiO2 05/20/20 19:16 100 Room Air 21 05/20/20 16:00 93 05/20/20 16:00 97.7 20 123/96 (105) 05/19/20 08:00 4.0 Laboratory Tests Test 05/20/20 03:20 05/20/20 14:05 White Blood Count 7.1 K/UL (4.8-10.8) Red Blood Count 3.70 M/UL (4.20-5.40) L Hemoglobin 11.1 G/DL (12.0-16.0) L Hematocrit 35.1 % (37.0-47.0) L Mean Corpuscular Volume 95 FL (80-99) Mean Corpuscular Hemoglobin 30.1 PG (27.0-31.0) Mean Corpuscular Hemoglobin Concent 31.7 G/DL (32.0-36.0) L Red Cell Distribution Width 12.7 % (11.6-14.8) Platelet Count 266 K/UL (150-450) Mean Platelet Volume 7.2 FL (6.5-10.1) Neutrophils (%) (Auto) 58.2 % (45.0-75.0) Lymphocytes (%) (Auto) 31.9 % (20.0-45.0) Monocytes (%) (Auto) 9.1 % (1.0-10.0) Eosinophils (%) (Auto) 0.1 % (0.0-3.0) Basophils (%) (Auto) 0.8 % (0.0-2.0) Sodium Level 141 MMOL/L (136-145) Potassium Level 4.1 MMOL/L (3.5-5.1) Chloride Level 107 MMOL/L (98-107) Carbon Dioxide Level 23 MMOL/L (21-32) Anion Gap 11 mmol/L (5-15) Blood Urea Nitrogen 25 mg/dL (7-18) H Creatinine 1.0 MG/DL (0.55-1.30) Estimat Glomerular Filtration Rate 52.2 mL/min (>60) Glucose Level 90 MG/DL (74-106) Calcium Level 8.8 MG/DL (8.5-10.1) C-Reactive Protein, Quantitative < 0.4 mg/dL (0.00-0.90) D-Dimer 0.61 mg/L FEU (0.00-0.49) H Intake and Output 05/19/20 05/20/20 19:00 07:00 Intake Total 540 ml 50 ml Balance 540 ml 50 ml Intake Oral 540 ml 50 ml # Voids 3 2 # Bowel Movements 3 Objective awake, responsive, oxygenation well on room. examination is limited due COVD-19 isolation. Assessment/Plan Assessment/Plan ASSESSMENT: This is an 89-year-old female with: 1. COVID-19 infection. 2. COVID-19 pneumonia. 3. Hypertension. 4. Alzheimer's dementia. 5. Acute hypoxic resp failure, SP- now at , TREATMENT: 1. Acute hypoxic resp failure, SP- now at , An Infectious Disease consultation has been obtained with Dr. Strickland. A Pulmonary consultation has been obtained with Dr. Thania Chung. The patient has been started empirically on Decadron intravenously. Follow recommendations of Pulmonary and Infectious Disease. 2. Hypertension. Continue losartan as above. 3. Alzheimer's dementia. Downgrade from EDUARDO to telemetry. CODE STATUS: Full code DVT prophylaxis: Lovenox injection. On dexamethasone 6 mg IV Daily Mannie Packer MD May 20, 2020 20:03
[2020-05-21] VITALS: BP 141/75
[2020-05-21 04:00] VITALS: BP 124/77
[2020-05-21 07:06] LABS: BASOPHILS % (AUTO) 0.7 % (0.0-2.0); EOSINOPHILS % (AUTO) 0.1 % (0.0-3.0); HEMATOCRIT 37.5 % (37.0-47.0); LYMPHOCYTES % (AUTO) 35.3 % (20.0-45.0); MEAN CORPUSCULAR VOLUME 94 FL (80-99); MONOCYTES % (AUTO) 10.5 % (1.0-10.0); NEUTROPHILS % (AUTO) 53.3 % (45.0-75.0); PLATELET COUNT 296 K/UL (150-450); RED BLOOD COUNT 3.97 M/UL (4.20-5.40); RED CELL DISTRIBUTION WIDTH 12.4 % (11.6-14.8)
--- NOTE | 2020-05-21 07:15 | NUR ---
NURSE NOTES: Received report from KRYSTIAN Cole. Pt is stable and awake in bed resting. Pt has no S/S or complaints of distress at this time. Pt restraints on L and R wrist, pulse palatable, sensation and skin intact. Bed locked and at lowest position, bed alarm on, and yellow gown on. Will continue to monitor.
[2020-05-21 07:34] LABS: ALANINE AMINOTRANSFERASE 41 U/L (12-78); ALBUMIN 3.6 G/DL (3.4-5.0); ALBUMIN/GLOBULIN RATIO 0.9 (1.0-2.7); ALKALINE PHOSPHATASE 71 U/L (46-116); ANION GAP 9 mmol/L (5-15); ASPARTATE AMINO TRANSFERASE 50 U/L (15-37); BLOOD UREA NITROGEN 24 mg/dL (7-18); CALCIUM 9.3 MG/DL (8.5-10.1); CARBON DIOXIDE 25 MMOL/L (21-32); CHLORIDE 104 MMOL/L (98-107); CREATININE 0.9 MG/DL (0.55-1.30); PHOSPHORUS 2.5 MG/DL (2.5-4.9); POTASSIUM 3.8 MMOL/L (3.5-5.1); SODIUM 138 MMOL/L (136-145)
[2020-05-21 08:00] VITALS: BP 131/51
[2020-05-21] MEDS: Losartan 25mg tab ORAL SCH (08:38)
[2020-05-21] MEDS: Meloxicam 15 MG TAB ORAL SCH (08:38)
[2020-05-21] MEDS: Pantoprazole Inj IVP SCH (08:40)
[2020-05-21] MEDS: Enoxaparin 40mg Inj SUBQ SCH (08:41)
--- NOTE | 2020-05-21 09:00 | NUR ---
CASE MANAGEMENT: REVIEW 05/21/2020 SI:COVID-19 infection. Acute hypoxemic respiratory failure. VS: T 96.4 HR 82 RR 18 B/P 131/51 SATS 98% ON RA LABS: BUN 24 GLU 109 AST 50 IS;GABAPENTIN PO BID COZAAR PO QD DECADRON IV QD MOBIC PO QD SDU PLAN OF CARE: VQ SCAN >> IMPRESSION: Overall findings suggesting low probability for pulmonary embolism VENOUS DUPLEX ASPIRATION PRECAUTION
[2020-05-21 11:40] VITALS: BP 133/63
--- NOTE | 2020-05-21 14:26 | Internal Med Progress Note ---
Subjective Date of Service: May 21, 2020 Physician Name Dimas Anderson Attending Physician Mannie Packer MD Current Medications Medications (Trade) Dose Ordered Sig/Hetal Route PRN Reason Start Time Stop Time Status Last Admin Dose Admin Acetaminophen (Tylenol) 650 mg Q4H PRN ORAL Mild Pain (Pain Scale 1-3) 05/20/20 15:30 06/16/20 15:29 Albuterol Sulfate (Proventil MDI) 2 puff Q4H PRN INH Shortness of Breath 05/20/20 16:00 08/16/20 15:59 Dexamethasone Sodium Phosphate (Decadron 4mg/ml vial) 6 mg DAILY IVP 05/21/20 09:00 05/27/20 08:59 05/21/20 08:40 Enoxaparin Sodium (Lovenox) 40 mg DAILY SUBQ 05/21/20 09:00 08/16/20 08:59 05/21/20 08:41 Gabapentin (Neurontin) 100 mg BID ORAL 05/20/20 18:00 06/17/20 08:59 05/21/20 08:38 Loperamide HCl (Imodium) 2 mg Q6H PRN ORAL Diarrhea 05/20/20 16:00 06/16/20 15:59 Lorazepam (Ativan 2mg/ml 1ml) 0.5 mg Q8H PRN IV For Anxiety 05/20/20 16:00 05/25/20 15:59 Losartan Potassium (Cozaar) 25 mg DAILY ORAL 05/21/20 09:00 06/17/20 08:59 05/21/20 08:38 Magnesium Hydroxide (Mom) 30 ml DAILYPRN PRN ORAL Constipation 05/20/20 16:00 06/16/20 15:59 Meloxicam (Mobic) 15 mg DAILY ORAL 05/21/20 09:00 06/17/20 08:59 05/21/20 08:38 Ondansetron HCl (Zofran) 4 mg Q4H PRN IVP Nausea & Vomiting 05/20/20 16:00 06/16/20 15:59 Pantoprazole (Protonix) 40 mg DAILY IVP 05/21/20 09:00 06/17/20 10:14 05/21/20 08:40 Allergies: Coded Allergies: No Known Allergies (Unverified , 12/07/12) ROS Limited/Unobtainable: No Constitutional: Reports: no symptoms HEENT: Reports: no symptoms Cardiovascular: Reports: no symptoms Respiratory: Reports: shortness of breath Gastrointestinal/Abdominal: Reports: no symptoms Genitourinary: Reports: no symptoms Neurologic/Psychiatric: Reports: no symptoms Subjective 89 YO F admitted with COVID 19 pneumonia. Cover for Int Med-DR Packer. Tele Objective Last Vital Signs Date Time Temp Pulse Resp B/P (MAP) Pulse Ox O2 Delivery O2 Flow Rate FiO2 05/21/20 12:00 80 05/21/20 11:40 97.3 20 133/63 (86) 94 05/21/20 08:00 Room Air 05/20/20 19:16 21 05/19/20 08:00 4.0 Laboratory Tests Test 05/21/20 06:10 White Blood Count 10.0 K/UL (4.8-10.8) Red Blood Count 3.97 M/UL (4.20-5.40) L Hemoglobin 12.0 G/DL (12.0-16.0) Hematocrit 37.5 % (37.0-47.0) Mean Corpuscular Volume 94 FL (80-99) Mean Corpuscular Hemoglobin 30.3 PG (27.0-31.0) Mean Corpuscular Hemoglobin Concent 32.1 G/DL (32.0-36.0) Red Cell Distribution Width 12.4 % (11.6-14.8) Platelet Count 296 K/UL (150-450) Mean Platelet Volume 6.9 FL (6.5-10.1) Neutrophils (%) (Auto) 53.3 % (45.0-75.0) Lymphocytes (%) (Auto) 35.3 % (20.0-45.0) Monocytes (%) (Auto) 10.5 % (1.0-10.0) H Eosinophils (%) (Auto) 0.1 % (0.0-3.0) Basophils (%) (Auto) 0.7 % (0.0-2.0) Erythrocyte Sedimentation Rate 31 MM/HR (0-30) H Sodium Level 138 MMOL/L (136-145) Potassium Level 3.8 MMOL/L (3.5-5.1) Chloride Level 104 MMOL/L (98-107) Carbon Dioxide Level 25 MMOL/L (21-32) Anion Gap 9 mmol/L (5-15) Blood Urea Nitrogen 24 mg/dL (7-18) H Creatinine 0.9 MG/DL (0.55-1.30) Estimat Glomerular Filtration Rate 59.0 mL/min (>60) Glucose Level 109 MG/DL (74-106) H Calcium Level 9.3 MG/DL (8.5-10.1) Phosphorus Level 2.5 MG/DL (2.5-4.9) Magnesium Level 2.0 MG/DL (1.8-2.4) Total Bilirubin 1.0 MG/DL (0.2-1.0) Aspartate Amino Transf (AST/SGOT) 50 U/L (15-37) H Alanine Aminotransferase (ALT/SGPT) 41 U/L (12-78) Alkaline Phosphatase 71 U/L (46-116) C-Reactive Protein, Quantitative < 0.4 mg/dL (0.00-0.90) Total Protein 7.4 G/DL (6.4-8.2) Albumin 3.6 G/DL (3.4-5.0) Globulin 3.8 g/dL Albumin/Globulin Ratio 0.9 (1.0-2.7) L Intake and Output 05/20/20 05/21/20 19:00 07:00 Intake Total 300 ml Balance 300 ml Other 300 ml # Voids 2 # Bowel Movements 3 1 Objective PHYSICAL EXAMINATION: GENERAL: The patient is a thin-appearing, female, in no apparent distress. HEENT: Eyes, pupils are equal and responsive to light and accommodation. Extraocular movements are intact. NECK: Supple without lymphadenopathy. CHEST: Decreased breath sounds to bilateral bases. Otherwise, clear to auscultation without wheezes or rales. CARDIOVASCULAR: Regular rhythm and rate. S1, S2 are normal without murmurs, rubs, or gallops. ABDOMEN: Soft, nontender, and nondistended. Positive bowel sounds. No evidence of hepatosplenomegaly. Currently, no rebound or guarding noted. EXTREMITIES: Negative for clubbing, cyanosis, or edema. RECTAL/GENITAL: Not performed. NEUROLOGIC: Cranial nerves II to XII are grossly intact without focal deficits. Motor strength is 5/5 bilaterally. Deep tendon reflexes are 2+ plantar. Assessment/Plan Assessment/Plan ASSESSMENT: This is an 89-year-old female with: 1. COVID-19 positive. 2. Probable COVID-19 pneumonia. 3. Hypertension. 4. Alzheimer's dementia. TREATMENT: 1. COVID-19 positive. An Infectious Disease consultation has been obtained with Dr. Strickland. A Pulmonary consultation has been obtained with Dr. Thania Chung. The patient has been started empirically on Decadron 6 mg IV daily. Follow recommendations of Pulmonary and Infectious Disease. 2. Hypertension. Continue losartan as above. 3. Alzheimer's dementia. 4. CODE STATUS: Full code 5. DVT prophylaxis: Lovenox injection. Dimas Anderson MD May 21, 2020 14:26
--- NOTE | 2020-05-21 15:25 | Cardiology Progress Note ---
Assessment/Plan Assessment/Plan covid 19 infection htn encephaloapthty echo pesoanlly reviewd normal wall motion tele sinus ok to dc tele Subjective Cardiovascular: Denies: chest pain, lightheadedness, palpitations Respiratory: Denies: shortness of breath Gastrointestinal/Abdominal: Denies: abdomen distended Genitourinary: Denies: burning Objective Last 24 Hour Vital Signs Date Time Temp Pulse Resp B/P (MAP) Pulse Ox O2 Delivery O2 Flow Rate FiO2 05/21/20 12:00 80 05/21/20 11:40 97.3 71 20 133/63 (86) 94 05/21/20 08:38 131/51 05/21/20 08:00 Room Air 05/21/20 08:00 58 05/21/20 08:00 96.4 82 18 131/51 (77) 98 05/21/20 04:00 66 05/21/20 04:00 Room Air 05/21/20 04:00 97.8 78 22 124/77 (93) 94 78 05/21/20 00:06 Room Air 05/21/20 00:00 98.2 68 21 141/75 (97) 94 05/21/20 00:00 64 05/20/20 20:08 Room Air 05/20/20 20:00 98.7 82 19 140/63 (88) 95 05/20/20 20:00 86 05/20/20 19:16 100 Room Air 21 05/20/20 16:00 93 05/20/20 16:00 Room Air 05/20/20 16:00 97.7 89 20 123/96 (105) 97 Intake and Output 05/20/20 05/21/20 19:00 07:00 Intake Total 300 ml Balance 300 ml Other 300 ml # Voids 2 # Bowel Movements 3 1 Laboratory Tests Test 05/21/20 06:10 White Blood Count 10.0 K/UL (4.8-10.8) Red Blood Count 3.97 M/UL (4.20-5.40) L Hemoglobin 12.0 G/DL (12.0-16.0) Hematocrit 37.5 % (37.0-47.0) Mean Corpuscular Volume 94 FL (80-99) Mean Corpuscular Hemoglobin 30.3 PG (27.0-31.0) Mean Corpuscular Hemoglobin Concent 32.1 G/DL (32.0-36.0) Red Cell Distribution Width 12.4 % (11.6-14.8) Platelet Count 296 K/UL (150-450) Mean Platelet Volume 6.9 FL (6.5-10.1) Neutrophils (%) (Auto) 53.3 % (45.0-75.0) Lymphocytes (%) (Auto) 35.3 % (20.0-45.0) Monocytes (%) (Auto) 10.5 % (1.0-10.0) H Eosinophils (%) (Auto) 0.1 % (0.0-3.0) Basophils (%) (Auto) 0.7 % (0.0-2.0) Erythrocyte Sedimentation Rate 31 MM/HR (0-30) H Sodium Level 138 MMOL/L (136-145) Potassium Level 3.8 MMOL/L (3.5-5.1) Chloride Level 104 MMOL/L (98-107) Carbon Dioxide Level 25 MMOL/L (21-32) Anion Gap 9 mmol/L (5-15) Blood Urea Nitrogen 24 mg/dL (7-18) H Creatinine 0.9 MG/DL (0.55-1.30) Estimat Glomerular Filtration Rate 59.0 mL/min (>60) Glucose Level 109 MG/DL (74-106) H Calcium Level 9.3 MG/DL (8.5-10.1) Phosphorus Level 2.5 MG/DL (2.5-4.9) Magnesium Level 2.0 MG/DL (1.8-2.4) Total Bilirubin 1.0 MG/DL (0.2-1.0) Aspartate Amino Transf (AST/SGOT) 50 U/L (15-37) H Alanine Aminotransferase (ALT/SGPT) 41 U/L (12-78) Alkaline Phosphatase 71 U/L (46-116) C-Reactive Protein, Quantitative < 0.4 mg/dL (0.00-0.90) Total Protein 7.4 G/DL (6.4-8.2) Albumin 3.6 G/DL (3.4-5.0) Globulin 3.8 g/dL Albumin/Globulin Ratio 0.9 (1.0-2.7) L Oneal Pickens MD May 21, 2020 15:25
--- NOTE | 2020-05-21 15:27 | Pulmonology Progress Note ---
Subjective ROS Limited/Unobtainable: No Constitutional: Reports: no symptoms Allergies: Coded Allergies: No Known Allergies (Unverified , 12/07/12) All Systems: reviewed and negative except above Objective Last 24 Hour Vital Signs Date Time Temp Pulse Resp B/P (MAP) Pulse Ox O2 Delivery O2 Flow Rate FiO2 05/21/20 12:00 80 05/21/20 11:40 97.3 71 20 133/63 (86) 94 05/21/20 08:38 131/51 05/21/20 08:00 Room Air 05/21/20 08:00 58 05/21/20 08:00 96.4 82 18 131/51 (77) 98 05/21/20 04:00 66 05/21/20 04:00 Room Air 05/21/20 04:00 97.8 78 22 124/77 (93) 94 78 05/21/20 00:06 Room Air 05/21/20 00:00 98.2 68 21 141/75 (97) 94 05/21/20 00:00 64 05/20/20 20:08 Room Air 05/20/20 20:00 98.7 82 19 140/63 (88) 95 05/20/20 20:00 86 05/20/20 19:16 100 Room Air 21 05/20/20 16:00 93 05/20/20 16:00 Room Air 05/20/20 16:00 97.7 89 20 123/96 (105) 97 Intake and Output 05/20/20 05/21/20 19:00 07:00 Intake Total 300 ml Balance 300 ml Other 300 ml # Voids 2 # Bowel Movements 3 1 General Appearance: cachetic HEENT: normocephalic, atraumatic Respiratory: chest wall non-tender, rhonchi - left, rhonchi - right Cardiovascular: normal peripheral pulses, normal rate Abdomen: normal bowel sounds, soft, non tender Genitourinary: normal external genitalia Extremities: no cyanosis Skin: no rash, no ulcers 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 Lymphatic: no neck adenopathy Laboratory Tests 05/21/20 06:10: White Blood Count 10.0, Red Blood Count 3.97L, Hemoglobin 12.0, Hematocrit 37.5 , Mean Corpuscular Volume 94, Mean Corpuscular Hemoglobin 30.3, Mean Corpuscular Hemoglobin Concent 32.1, Red Cell Distribution Width 12.4, Platelet Count 296, Mean Platelet Volume 6.9, Neutrophils (%) (Auto) 53.3, Lymphocytes (% ) (Auto) 35.3, Monocytes (%) (Auto) 10.5H, Eosinophils (%) (Auto) 0.1, Basophils (%) (Auto) 0.7, Erythrocyte Sedimentation Rate 31H, Sodium Level 138, Potassium Level 3.8, Chloride Level 104, Carbon Dioxide Level 25, Anion Gap 9, Blood Urea Nitrogen 24H, Creatinine 0.9, Estimat Glomerular Filtration Rate 59.0 , Glucose Level 109H, Calcium Level 9.3, Phosphorus Level 2.5, Magnesium Level 2.0, Total Bilirubin 1.0, Aspartate Amino Transf (AST/SGOT) 50H, Alanine Aminotransferase (ALT/SGPT) 41, Alkaline Phosphatase 71, C-Reactive Protein, Quantitative < 0.4, Total Protein 7.4, Albumin 3.6, Globulin 3.8, Albumin/ Globulin Ratio 0.9L Current Medications Medications (Trade) Dose Ordered Sig/Hetal Route PRN Reason Start Time Stop Time Status Last Admin Dose Admin Acetaminophen (Tylenol) 650 mg Q4H PRN ORAL Mild Pain (Pain Scale 1-3) 05/20/20 15:30 06/16/20 15:29 Albuterol Sulfate (Proventil MDI) 2 puff Q4H PRN INH Shortness of Breath 05/20/20 16:00 08/16/20 15:59 Dexamethasone Sodium Phosphate (Decadron 4mg/ml vial) 6 mg DAILY IVP 05/21/20 09:00 05/27/20 08:59 05/21/20 08:40 Enoxaparin Sodium (Lovenox) 40 mg DAILY SUBQ 05/21/20 09:00 08/16/20 08:59 05/21/20 08:41 Gabapentin (Neurontin) 100 mg BID ORAL 05/20/20 18:00 06/17/20 08:59 05/21/20 08:38 Loperamide HCl (Imodium) 2 mg Q6H PRN ORAL Diarrhea 05/20/20 16:00 06/16/20 15:59 Lorazepam (Ativan 2mg/ml 1ml) 0.5 mg Q8H PRN IV For Anxiety 05/20/20 16:00 05/25/20 15:59 Losartan Potassium (Cozaar) 25 mg DAILY ORAL 05/21/20 09:00 06/17/20 08:59 05/21/20 08:38 Magnesium Hydroxide (Mom) 30 ml DAILYPRN PRN ORAL Constipation 05/20/20 16:00 06/16/20 15:59 Meloxicam (Mobic) 15 mg DAILY ORAL 05/21/20 09:00 06/17/20 08:59 05/21/20 08:38 Ondansetron HCl (Zofran) 4 mg Q4H PRN IVP Nausea & Vomiting 05/20/20 16:00 06/16/20 15:59 Pantoprazole (Protonix) 40 mg DAILY IVP 05/21/20 09:00 06/17/20 10:14 05/21/20 08:40 Assessment/Plan Problems: (1) 2019 novel coronavirus disease (COVID-19) (2) Respiratory distress (3) Anemia (4) History of hypertension (5) CAD (coronary artery disease) (6) Alzheimer's dementia Assessment/Plan doing better cxr reviewed v/q negative Normal Echo respiratory treatment all reviewed echo reviewed, EF 60% monitor BP cardiology to evaluate for abnormal EKG symptomatic treatment. Thania Chung MD May 21, 2020 15:27
[2020-05-21 16:00] VITALS: BP 132/71
--- NOTE | 2020-05-21 19:10 | NUR ---
NURSE NOTES: Received report from KRYSTIAN Hurley. Pt. in bed, awake, resting. Continue on room air with no resp distress noted. Continue on monitoring analyst. IV in place & patent on left forearm. Pt is on bilateral soft wrist restraints, skin intact, bilateral pulses palpable, no swelling noted. No s/s pain noted. Bed in low position and locked, bed alarm on. Call light with in reach.
--- NOTE | 2020-05-21 19:20 | NUR ---
HAND-OFF: Report given to KRYSTIAN Randolph. Pt stable and plan of care endorsed.
[2020-05-21 20:00] VITALS: BP 111/56
[2020-05-22] VITALS: BP 140/58
[2020-05-22 04:00] VITALS: BP 132/50
--- NOTE | 2020-05-22 06:04 | NUR ---
NURSE NOTES: Notified Dr. Pickens that pt went sravanthi (53 bpm) around midnight and had 6 beats of SVT. Pt was asymptomatic. Will continue to monitor pt.
[2020-05-22 06:20] LABS: BASOPHILS % (AUTO) 0.5 % (0.0-2.0); EOSINOPHILS % (AUTO) 0.3 % (0.0-3.0); HEMATOCRIT 35.5 % (37.0-47.0); HEMOGLOBIN 11.2 G/DL (12.0-16.0); LYMPHOCYTES % (AUTO) 38.7 % (20.0-45.0); MEAN CORPUSCULAR VOLUME 95 FL (80-99); MONOCYTES % (AUTO) 10.2 % (1.0-10.0); NEUTROPHILS % (AUTO) 50.3 % (45.0-75.0); PLATELET COUNT 286 K/UL (150-450); RED BLOOD COUNT 3.76 M/UL (4.20-5.40); RED CELL DISTRIBUTION WIDTH 12.3 % (11.6-14.8); WHITE BLOOD COUNT 8.9 K/UL (4.8-10.8)
[2020-05-22 06:35] LABS: ANION GAP 10 mmol/L (5-15); BLOOD UREA NITROGEN 26 mg/dL (7-18); CALCIUM 9.1 MG/DL (8.5-10.1); CARBON DIOXIDE 25 MMOL/L (21-32); CHLORIDE 103 MMOL/L (98-107); SODIUM 138 MMOL/L (136-145)
--- NOTE | 2020-05-22 07:30 | NUR ---
NURSE NOTES: Received report from KRYSTIAN Randolph. Pt is stable and sleeping in bed. Pt IV asymptomatic and intact. Bilateral soft wrist restraints, pulse palatable, no pain, skin intact and hydration/ nutrition offered. Pt has no S/S or complaints of distress at this time. Pt bed low and locked, fall risk sign up, 3 rails up, and call light in reach. Will continue to monitor.
--- NOTE | 2020-05-22 07:35 | NUR ---
HAND-OFF: Report given to KRYSTIAN Duarte. Plan of care endorsed.
[2020-05-22 08:00] VITALS: BP 117/49
[2020-05-22] MEDS: Losartan 25mg tab ORAL SCH (09:26)
[2020-05-22] MEDS: Pantoprazole Inj IVP SCH (09:26)
[2020-05-22] MEDS: Meloxicam 15 MG TAB ORAL SCH (09:26)
[2020-05-22] MEDS: Enoxaparin 40mg Inj SUBQ SCH (09:27)
--- NOTE | 2020-05-22 09:38 | Infectious Diseases Prog Note ---
Assessment/Plan Assessment: COVID19 confirmed- ?PNA- no apparent PNA on CXR or CT chest Acute hypoxic resp failure, SP- now at RA, no hypoxia on ABG -dx'ed on 05/11 at [facility] -05/19 CXR: No focal consolidation, pleural effusion, or pneumothorax. Mild chronically increased interstitial markings. -05/17 CTA chest: STUDY LIMITED DUE TO RESPIRATORY MOTION ARTIFACT.NO LARGE CENTRAL EMBOLISM. NO DEFINITE PERIPHERAL SMALL SUBSEGMENTAL PULMONARY EMBOLI TO THE EXTENT VISUALIZED. 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 GALLSTONE. -05/17 CXR: no acute disease rapid COVID PCR + inflammatory markers normal Afebrile No leukocytosis -05/17 u/a neg Bcx NTD HTN Alzheimer's Dementia recent diagnosis COVID19 (05/11) SNF resident ([facility]) Plan: -Continue to monitor off abx -On Decadron per pulm -Will consider Remdesevir if requiring O2 supplement -f/u cx -Monitor CBC/CMP, temperatures -COVID19 isolation Thank you for this consultation. Will continue to follow along with you. Discussed with RN. Subjective Allergies: Coded Allergies: No Known Allergies (Unverified , 12/07/12) AF On RA No distress Objective Last 24 Hour Vital Signs Date Time Temp Pulse Resp B/P (MAP) Pulse Ox O2 Delivery O2 Flow Rate FiO2 05/22/20 09:26 132/50 05/22/20 08:00 51 05/22/20 04:00 60 05/22/20 04:00 98.0 60 20 132/50 (77) 96 05/22/20 00:08 53 05/22/20 00:00 98.4 66 18 140/58 (85) 96 05/21/20 23:44 67 05/21/20 21:00 Room Air 05/21/20 20:00 98.4 70 18 111/56 (74) 95 05/21/20 20:00 70 05/21/20 19:52 95 Room Air 21 05/21/20 16:00 97.3 77 20 132/71 (91) 95 05/21/20 16:00 84 05/21/20 12:00 80 05/21/20 11:40 97.3 71 20 133/63 (86) 94 Height (Feet): 5 Height (Inches): 3.00 Weight (Pounds): 117 Gen: Older woman, laying in bed in NAD Pulm: BL chest rise on RA Abd: Soft, NTND Ext: No c/c/e Skin: No visible skin rashes Laboratory Tests Test 05/22/20 04:50 White Blood Count 8.9 K/UL (4.8-10.8) Red Blood Count 3.76 M/UL (4.20-5.40) L Hemoglobin 11.2 G/DL (12.0-16.0) L Hematocrit 35.5 % (37.0-47.0) L Mean Corpuscular Volume 95 FL (80-99) Mean Corpuscular Hemoglobin 29.9 PG (27.0-31.0) Mean Corpuscular Hemoglobin Concent 31.6 G/DL (32.0-36.0) L Red Cell Distribution Width 12.3 % (11.6-14.8) Platelet Count 286 K/UL (150-450) Mean Platelet Volume 7.1 FL (6.5-10.1) Neutrophils (%) (Auto) 50.3 % (45.0-75.0) Lymphocytes (%) (Auto) 38.7 % (20.0-45.0) Monocytes (%) (Auto) 10.2 % (1.0-10.0) H Eosinophils (%) (Auto) 0.3 % (0.0-3.0) Basophils (%) (Auto) 0.5 % (0.0-2.0) Sodium Level 138 MMOL/L (136-145) Potassium Level 4.0 MMOL/L (3.5-5.1) Chloride Level 103 MMOL/L (98-107) Carbon Dioxide Level 25 MMOL/L (21-32) Anion Gap 10 mmol/L (5-15) Blood Urea Nitrogen 26 mg/dL (7-18) H Creatinine 1.0 MG/DL (0.55-1.30) Estimat Glomerular Filtration Rate 52.2 mL/min (>60) Glucose Level 89 MG/DL (74-106) Calcium Level 9.1 MG/DL (8.5-10.1) Current Medications Medications (Trade) Dose Ordered Sig/Hetal Route PRN Reason Start Time Stop Time Status Last Admin Dose Admin Acetaminophen (Tylenol) 650 mg Q4H PRN ORAL Mild Pain (Pain Scale 1-3) 05/20/20 15:30 06/16/20 15:29 Albuterol Sulfate (Proventil MDI) 2 puff Q4H PRN INH Shortness of Breath 05/20/20 16:00 08/16/20 15:59 Dexamethasone Sodium Phosphate (Decadron 4mg/ml vial) 6 mg DAILY IVP 05/21/20 09:00 05/27/20 08:59 05/22/20 09:26 Enoxaparin Sodium (Lovenox) 40 mg DAILY SUBQ 05/21/20 09:00 08/16/20 08:59 05/22/20 09:27 Gabapentin (Neurontin) 100 mg BID ORAL 05/20/20 18:00 06/17/20 08:59 05/22/20 09:25 Loperamide HCl (Imodium) 2 mg Q6H PRN ORAL Diarrhea 05/20/20 16:00 06/16/20 15:59 Lorazepam (Ativan 2mg/ml 1ml) 0.5 mg Q8H PRN IV For Anxiety 05/20/20 16:00 05/25/20 15:59 Losartan Potassium (Cozaar) 25 mg DAILY ORAL 05/21/20 09:00 06/17/20 08:59 05/22/20 09:26 Magnesium Hydroxide (Mom) 30 ml DAILYPRN PRN ORAL Constipation 05/20/20 16:00 06/16/20 15:59 Meloxicam (Mobic) 15 mg DAILY ORAL 05/21/20 09:00 06/17/20 08:59 05/22/20 09:26 Ondansetron HCl (Zofran) 4 mg Q4H PRN IVP Nausea & Vomiting 05/20/20 16:00 06/16/20 15:59 Pantoprazole (Protonix) 40 mg DAILY IVP 05/21/20 09:00 06/17/20 10:14 05/22/20 09:26 Giana Serrano M.D. May 22, 2020 09:38
[2020-05-22 12:00] VITALS: BP 100/44
--- NOTE | 2020-05-22 12:55 | Cardiology Progress Note ---
Assessment/Plan Assessment/Plan covid 19 infection htn encephaloapthty echo pesoanlly reviewed normal wall motion on rn called me pt went sravanthi (53 bpm) around midnight and had 6 beats of SVT. Pt was asymptomatic. Will continue to monitor pt. lwo grade fever mild sravanthi butnot on any medication that woul cause obn dvt ppx with lwmh Subjective Subjective in covid isolation i did not see pt but revied chart and heber herbert note for today in order to minimize risk of transmission NURSE NOTES: Received report from KRYSTIAN Randolph. Pt is stable and sleeping in bed. Pt IV asymptomatic and intact. Bilateral soft wrist restraints, pulse palatable, no pain, skin intact and hydration/ nutrition offered. Pt has no S/S or complaints of distress at this time. Pt bed low and locked, fall risk sign up, 3 rails up, and call light in reach. Will continue to monitor. Objective Last 24 Hour Vital Signs Date Time Temp Pulse Resp B/P (MAP) Pulse Ox O2 Delivery O2 Flow Rate FiO2 05/22/20 12:00 99.3 58 20 100/44 (62) 98 05/22/20 12:00 57 05/22/20 09:26 132/50 05/22/20 09:00 Room Air 05/22/20 08:00 51 05/22/20 08:00 97.5 66 22 117/49 (71) 97 05/22/20 04:00 60 05/22/20 04:00 98.0 60 20 132/50 (77) 96 05/22/20 00:08 53 05/22/20 00:00 98.4 66 18 140/58 (85) 96 05/21/20 23:44 67 05/21/20 21:00 Room Air 05/21/20 20:00 98.4 70 18 111/56 (74) 95 05/21/20 20:00 70 05/21/20 19:52 95 Room Air 21 05/21/20 16:00 97.3 77 20 132/71 (91) 95 05/21/20 16:00 84 Intake and Output 05/21/20 05/22/20 19:00 07:00 Intake Total 530 ml 250 ml Balance 530 ml 250 ml Intake Oral 530 ml 250 ml # Voids 4 3 # Bowel Movements 3 2 Laboratory Tests Test 8/2/20 04:50 White Blood Count 8.9 K/UL (4.8-10.8) Red Blood Count 3.76 M/UL (4.20-5.40) L Hemoglobin 11.2 G/DL (12.0-16.0) L Hematocrit 35.5 % (37.0-47.0) L Mean Corpuscular Volume 95 FL (80-99) Mean Corpuscular Hemoglobin 29.9 PG (27.0-31.0) Mean Corpuscular Hemoglobin Concent 31.6 G/DL (32.0-36.0) L Red Cell Distribution Width 12.3 % (11.6-14.8) Platelet Count 286 K/UL (150-450) Mean Platelet Volume 7.1 FL (6.5-10.1) Neutrophils (%) (Auto) 50.3 % (45.0-75.0) Lymphocytes (%) (Auto) 38.7 % (20.0-45.0) Monocytes (%) (Auto) 10.2 % (1.0-10.0) H Eosinophils (%) (Auto) 0.3 % (0.0-3.0) Basophils (%) (Auto) 0.5 % (0.0-2.0) Sodium Level 138 MMOL/L (136-145) Potassium Level 4.0 MMOL/L (3.5-5.1) Chloride Level 103 MMOL/L (98-107) Carbon Dioxide Level 25 MMOL/L (21-32) Anion Gap 10 mmol/L (5-15) Blood Urea Nitrogen 26 mg/dL (7-18) H Creatinine 1.0 MG/DL (0.55-1.30) Estimat Glomerular Filtration Rate 52.2 mL/min (>60) Glucose Level 89 MG/DL (74-106) Calcium Level 9.1 MG/DL (8.5-10.1) Objective per ID note Gen: Older woman, laying in bed in NAD Pulm: BL chest rise on RA Abd: Soft, NTND Ext: No c/c/e Skin: No visible skin rashes Oneal Pickens MD May 22, 2020 12:55
--- NOTE | 2020-05-22 15:29 | Pulmonology Progress Note ---
Subjective ROS Limited/Unobtainable: No Constitutional: Reports: no symptoms HEENT: Repors: no symptoms Allergies: Coded Allergies: No Known Allergies (Unverified , 12/07/12) All Systems: reviewed and negative except above Objective Last 24 Hour Vital Signs Date Time Temp Pulse Resp B/P (MAP) Pulse Ox O2 Delivery O2 Flow Rate FiO2 05/22/20 12:00 99.3 58 20 100/44 (62) 98 05/22/20 12:00 57 05/22/20 09:26 132/50 05/22/20 09:00 Room Air 05/22/20 08:04 97 Room Air 21 05/22/20 08:00 51 05/22/20 08:00 97.5 66 22 117/49 (71) 97 05/22/20 04:00 60 05/22/20 04:00 98.0 60 20 132/50 (77) 96 05/22/20 00:08 53 05/22/20 00:00 98.4 66 18 140/58 (85) 96 05/21/20 23:44 67 05/21/20 21:00 Room Air 05/21/20 20:00 98.4 70 18 111/56 (74) 95 05/21/20 20:00 70 05/21/20 19:52 95 Room Air 21 05/21/20 16:00 97.3 77 20 132/71 (91) 95 05/21/20 16:00 84 Intake and Output 05/21/20 05/22/20 19:00 07:00 Intake Total 530 ml 250 ml Balance 530 ml 250 ml Intake Oral 530 ml 250 ml # Voids 4 3 # Bowel Movements 3 2 General Appearance: cachetic HEENT: normocephalic, atraumatic Respiratory: chest wall non-tender, rhonchi - left, rhonchi - right Cardiovascular: normal peripheral pulses, normal rate Abdomen: normal bowel sounds, soft, non tender Genitourinary: normal external genitalia Extremities: no cyanosis Skin: no rash, no ulcers 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 Lymphatic: no neck adenopathy Laboratory Tests 05/22/20 04:50: White Blood Count 8.9, Red Blood Count 3.76L, Hemoglobin 11.2L, Hematocrit 35.5L , Mean Corpuscular Volume 95, Mean Corpuscular Hemoglobin 29.9, Mean Corpuscular Hemoglobin Concent 31.6L, Red Cell Distribution Width 12.3, Platelet Count 286, Mean Platelet Volume 7.1, Neutrophils (%) (Auto) 50.3, Lymphocytes (%) (Auto) 38.7, Monocytes (%) (Auto) 10.2H, Eosinophils (%) (Auto) 0.3, Basophils (%) (Auto) 0.5, Sodium Level 138, Potassium Level 4.0, Chloride Level 103, Carbon Dioxide Level 25, Anion Gap 10, Blood Urea Nitrogen 26H, Creatinine 1.0, Estimat Glomerular Filtration Rate 52.2, Glucose Level 89, Calcium Level 9.1 Current Medications Medications (Trade) Dose Ordered Sig/Hetal Route PRN Reason Start Time Stop Time Status Last Admin Dose Admin Acetaminophen (Tylenol) 650 mg Q4H PRN ORAL Mild Pain (Pain Scale 1-3) 05/20/20 15:30 06/16/20 15:29 Albuterol Sulfate (Proventil MDI) 2 puff Q4H PRN INH Shortness of Breath 05/20/20 16:00 08/16/20 15:59 Dexamethasone Sodium Phosphate (Decadron 4mg/ml vial) 6 mg DAILY IVP 05/21/20 09:00 05/27/20 08:59 05/22/20 09:26 Enoxaparin Sodium (Lovenox) 40 mg DAILY SUBQ 05/21/20 09:00 08/16/20 08:59 05/22/20 09:27 Gabapentin (Neurontin) 100 mg BID ORAL 05/20/20 18:00 06/17/20 08:59 05/22/20 09:25 Loperamide HCl (Imodium) 2 mg Q6H PRN ORAL Diarrhea 05/20/20 16:00 06/16/20 15:59 Lorazepam (Ativan 2mg/ml 1ml) 0.5 mg Q8H PRN IV For Anxiety 05/20/20 16:00 05/25/20 15:59 Losartan Potassium (Cozaar) 25 mg DAILY ORAL 05/21/20 09:00 06/17/20 08:59 05/22/20 09:26 Magnesium Hydroxide (Mom) 30 ml DAILYPRN PRN ORAL Constipation 05/20/20 16:00 06/16/20 15:59 Meloxicam (Mobic) 15 mg DAILY ORAL 05/21/20 09:00 06/17/20 08:59 05/22/20 09:26 Ondansetron HCl (Zofran) 4 mg Q4H PRN IVP Nausea & Vomiting 05/20/20 16:00 06/16/20 15:59 Pantoprazole (Protonix) 40 mg DAILY IVP 05/21/20 09:00 06/17/20 10:14 05/22/20 09:26 Assessment/Plan Problems: (1) 2019 novel coronavirus disease (COVID-19) (2) Respiratory distress (3) Anemia (4) History of hypertension (5) CAD (coronary artery disease) (6) Alzheimer's dementia Assessment/Plan looks comfortable doing better cxr reviewed v/q negative Normal Echo respiratory treatment all reviewed echo reviewed, EF 60% monitor BP cardiology to evaluate for abnormal EKG symptomatic treatment. Thania Chung MD May 22, 2020 15:29
[2020-05-22 16:00] VITALS: BP 98/41
--- NOTE | 2020-05-22 16:12 | Internal Med Progress Note ---
Subjective Date of Service: May 22, 2020 Physician Name Dimas Anderson Attending Physician Mannie Packer MD Current Medications Medications (Trade) Dose Ordered Sig/Hetal Route PRN Reason Start Time Stop Time Status Last Admin Dose Admin Acetaminophen (Tylenol) 650 mg Q4H PRN ORAL Mild Pain (Pain Scale 1-3) 05/20/20 15:30 06/16/20 15:29 Albuterol Sulfate (Proventil MDI) 2 puff Q4H PRN INH Shortness of Breath 05/20/20 16:00 08/16/20 15:59 Dexamethasone Sodium Phosphate (Decadron 4mg/ml vial) 6 mg DAILY IVP 05/21/20 09:00 05/27/20 08:59 05/22/20 09:26 Enoxaparin Sodium (Lovenox) 40 mg DAILY SUBQ 05/21/20 09:00 08/16/20 08:59 05/22/20 09:27 Gabapentin (Neurontin) 100 mg BID ORAL 05/20/20 18:00 06/17/20 08:59 05/22/20 09:25 Loperamide HCl (Imodium) 2 mg Q6H PRN ORAL Diarrhea 05/20/20 16:00 06/16/20 15:59 Lorazepam (Ativan 2mg/ml 1ml) 0.5 mg Q8H PRN IV For Anxiety 05/20/20 16:00 05/25/20 15:59 Losartan Potassium (Cozaar) 25 mg DAILY ORAL 05/21/20 09:00 06/17/20 08:59 05/22/20 09:26 Magnesium Hydroxide (Mom) 30 ml DAILYPRN PRN ORAL Constipation 05/20/20 16:00 06/16/20 15:59 Meloxicam (Mobic) 15 mg DAILY ORAL 05/21/20 09:00 06/17/20 08:59 05/22/20 09:26 Ondansetron HCl (Zofran) 4 mg Q4H PRN IVP Nausea & Vomiting 05/20/20 16:00 06/16/20 15:59 Pantoprazole (Protonix) 40 mg DAILY IVP 05/21/20 09:00 06/17/20 10:14 05/22/20 09:26 Allergies: Coded Allergies: No Known Allergies (Unverified , 12/07/12) ROS Limited/Unobtainable: No Constitutional: Reports: no symptoms HEENT: Reports: no symptoms Cardiovascular: Reports: no symptoms Respiratory: Reports: shortness of breath Gastrointestinal/Abdominal: Reports: no symptoms Genitourinary: Reports: no symptoms Neurologic/Psychiatric: Reports: no symptoms Subjective 89 YO F admitted with COVID 19 pneumonia. Cover for Int Med-DR Packer. Tele Objective Last Vital Signs Date Time Temp Pulse Resp B/P (MAP) Pulse Ox O2 Delivery O2 Flow Rate FiO2 05/22/20 12:00 99.3 58 20 100/44 (62) 98 05/22/20 09:00 Room Air 05/22/20 08:04 21 05/19/20 08:00 4.0 Laboratory Tests Test 05/22/20 04:50 White Blood Count 8.9 K/UL (4.8-10.8) Red Blood Count 3.76 M/UL (4.20-5.40) L Hemoglobin 11.2 G/DL (12.0-16.0) L Hematocrit 35.5 % (37.0-47.0) L Mean Corpuscular Volume 95 FL (80-99) Mean Corpuscular Hemoglobin 29.9 PG (27.0-31.0) Mean Corpuscular Hemoglobin Concent 31.6 G/DL (32.0-36.0) L Red Cell Distribution Width 12.3 % (11.6-14.8) Platelet Count 286 K/UL (150-450) Mean Platelet Volume 7.1 FL (6.5-10.1) Neutrophils (%) (Auto) 50.3 % (45.0-75.0) Lymphocytes (%) (Auto) 38.7 % (20.0-45.0) Monocytes (%) (Auto) 10.2 % (1.0-10.0) H Eosinophils (%) (Auto) 0.3 % (0.0-3.0) Basophils (%) (Auto) 0.5 % (0.0-2.0) Sodium Level 138 MMOL/L (136-145) Potassium Level 4.0 MMOL/L (3.5-5.1) Chloride Level 103 MMOL/L (98-107) Carbon Dioxide Level 25 MMOL/L (21-32) Anion Gap 10 mmol/L (5-15) Blood Urea Nitrogen 26 mg/dL (7-18) H Creatinine 1.0 MG/DL (0.55-1.30) Estimat Glomerular Filtration Rate 52.2 mL/min (>60) Glucose Level 89 MG/DL (74-106) Calcium Level 9.1 MG/DL (8.5-10.1) Intake and Output 05/21/20 05/22/20 19:00 07:00 Intake Total 530 ml 250 ml Balance 530 ml 250 ml Intake Oral 530 ml 250 ml # Voids 4 3 # Bowel Movements 3 2 Objective PHYSICAL EXAMINATION: GENERAL: The patient is a thin-appearing, female, in no apparent distress. HEENT: Eyes, pupils are equal and responsive to light and accommodation. Extraocular movements are intact. NECK: Supple without lymphadenopathy. CHEST: Decreased breath sounds to bilateral bases. Otherwise, clear to auscultation without wheezes or rales. CARDIOVASCULAR: Regular rhythm and rate. S1, S2 are normal without murmurs, rubs, or gallops. ABDOMEN: Soft, nontender, and nondistended. Positive bowel sounds. No evidence of hepatosplenomegaly. Currently, no rebound or guarding noted. EXTREMITIES: Negative for clubbing, cyanosis, or edema. RECTAL/GENITAL: Not performed. NEUROLOGIC: Cranial nerves II to XII are grossly intact without focal deficits. Motor strength is 5/5 bilaterally. Deep tendon reflexes are 2+ plantar. Assessment/Plan Assessment/Plan ASSESSMENT: This is an 89-year-old female with: 1. COVID-19 positive. 2. Probable COVID-19 pneumonia. 3. Hypertension. 4. Alzheimer's dementia. TREATMENT: 1. COVID-19 positive. An Infectious Disease consultation has been obtained with Dr. Strickland. A Pulmonary consultation has been obtained with Dr. Thania Chung. The patient has been started empirically on Decadron 6 mg IV daily. Follow recommendations of Pulmonary and Infectious Disease. 2. Hypertension. Continue losartan as above. 3. Alzheimer's dementia. 4. CODE STATUS: Full code 5. DVT prophylaxis: Lovenox injection. Dimas Anderson MD May 22, 2020 16:12
--- NOTE | 2020-05-22 19:02 | NUR ---
HAND-OFF: Report given to KRYSTIAN Randolph. Pt stable. Plan of care endorsed.
--- NOTE | 2020-05-22 19:15 | NUR ---
NURSE NOTES: RECEIVED REPORT FROM KRYSTIAN BENNETT. AOX1, VERBAL ALTHOUGH INCOMPREHENSIVE. NO S/SX OF PAIN OR DISCOMFORT AT THIS TIME. BREATHING IS EVEN AND UNLABORED ON ROOM AIR, NO S/SX OF DISTRESS NOTED. IV SITE ON LAC PATENT, INTACT, AND ASYMPTOMATIC. BILATERAL SOFT WRIST RESTRAINTS ON- NO COMPROMISE NOTED IN CIRCULATION, SENSATION, MOBILITY, OR SKIN INTEGRITY. FALL AND ASPIRATION PRECAUTIONS IN PLACE. CONTACT AND DROPLET ISOLATION IMPLEMENTED. BED LOCKED AND IN LOWEST POSITION, SIDERAILS UP X 3. CALL LIGHT WITHIN REACH. WILL CONTINUE TO MONITOR FOR ANY CHANGES.
[2020-05-22 20:00] VITALS: BP 128/73
[2020-05-23] VITALS: BP 111/56
--- NOTE | 2020-05-23 02:11 | NUR ---
NURSE NOTES: Pt in bed, asleep. No resp distress noted. Bilateral soft wrist restraints in place no swelling, no skin break down noted, bilateral pulses palpable . Bed in low position, locked. Bed alarm on, call light with in reach. No s/s pain noted.
[2020-05-23 04:00] VITALS: BP 124/60
--- NOTE | 2020-05-23 04:30 | NUR ---
NURSE NOTES: BLOOD DRAWN AND TAKEN TO LAB.
[2020-05-23 06:44] LABS: BASOPHILS % (AUTO) 0.4 % (0.0-2.0); EOSINOPHILS % (AUTO) 0.2 % (0.0-3.0); HEMATOCRIT 36.1 % (37.0-47.0); HEMOGLOBIN 11.5 G/DL (12.0-16.0); LYMPHOCYTES % (AUTO) 33.2 % (20.0-45.0); MEAN CORPUSCULAR VOLUME 95 FL (80-99); MONOCYTES % (AUTO) 10.6 % (1.0-10.0); NEUTROPHILS % (AUTO) 55.5 % (45.0-75.0); PLATELET COUNT 275 K/UL (150-450); RED CELL DISTRIBUTION WIDTH 12.8 % (11.6-14.8); WHITE BLOOD COUNT 9.1 K/UL (4.8-10.8)
[2020-05-23 06:54] LABS: ANION GAP 7 mmol/L (5-15); BLOOD UREA NITROGEN 26 mg/dL (7-18); CALCIUM 9.2 MG/DL (8.5-10.1); CARBON DIOXIDE 28 MMOL/L (21-32); CHLORIDE 104 MMOL/L (98-107); POTASSIUM 4.3 MMOL/L (3.5-5.1); SODIUM 139 MMOL/L (136-145)
--- NOTE | 2020-05-23 07:30 | NUR ---
NURSE NOTES: Received report from KRYSTIAN Gaviria. Patient AAO x1. Breathing regular and unlabored on room air. No signs of pain. Bilateral soft wrist restraints intact. Radial pulses palpable, skin color normal for ethnicity, no edema, cap refill <3 seconds. Hydration and nutrition offered. Patient continues to attempt to remove devices and get out of bed. IV intact, flushed patent. Fall precautions in place.
--- NOTE | 2020-05-23 07:33 | NUR ---
HAND-OFF: Report given to KRYSTIAN JOSUE. PATIENT IN STABLE CONDITION. PLAN OF CARE ENDORSED.
[2020-05-23 08:00] VITALS: BP 124/45
[2020-05-23] MEDS: Meloxicam 15 MG TAB ORAL SCH (08:30)
[2020-05-23] MEDS: Pantoprazole Inj IVP SCH (08:30)
[2020-05-23] MEDS: Enoxaparin 40mg Inj SUBQ SCH (08:34)
[2020-05-23] MEDS: Losartan 25mg tab ORAL SCH (09:28)
[2020-05-23 12:00] VITALS: BP 112/56
--- NOTE | 2020-05-23 12:01 | Pulmonology Progress Note ---
Subjective ROS Limited/Unobtainable: No Constitutional: Reports: no symptoms HEENT: Repors: no symptoms Respiratory: Reports: no symptoms Allergies: Coded Allergies: No Known Allergies (Unverified , 12/07/12) All Systems: reviewed and negative except above Objective Last 24 Hour Vital Signs Date Time Temp Pulse Resp B/P (MAP) Pulse Ox O2 Delivery O2 Flow Rate FiO2 05/23/20 09:28 124/45 05/23/20 09:00 Room Air 05/23/20 08:00 121 05/23/20 08:00 99.0 63 20 124/45 (71) 98 05/23/20 04:00 97.2 66 22 124/60 (81) 96 05/23/20 04:00 131 05/23/20 00:00 57 05/23/20 00:00 97.0 62 20 111/56 (74) 93 05/22/20 21:00 Room Air 05/22/20 20:34 96 Room Air 21 05/22/20 20:00 97.9 72 20 128/73 (91) 94 05/22/20 20:00 66 05/22/20 16:00 99.5 70 20 98/41 (60) 97 05/22/20 16:00 68 Intake and Output 05/22/20 05/23/20 19:00 07:00 Intake Total 360 ml 120 ml Balance 360 ml 120 ml Intake Oral 360 ml 120 ml # Voids 3 1 # Bowel Movements 2 General Appearance: cachetic HEENT: normocephalic, atraumatic Respiratory: chest wall non-tender, rhonchi - left, rhonchi - right Cardiovascular: normal peripheral pulses, normal rate Abdomen: normal bowel sounds, soft, non tender Genitourinary: normal external genitalia Extremities: no cyanosis Skin: no rash, no ulcers 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: 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 grossly normal Lymphatic: no neck adenopathy Laboratory Tests 05/23/20 04:15: White Blood Count 9.1, Red Blood Count 3.80L, Hemoglobin 11.5L, Hematocrit 36.1L , Mean Corpuscular Volume 95, Mean Corpuscular Hemoglobin 30.3, Mean Corpuscular Hemoglobin Concent 31.9L, Red Cell Distribution Width 12.8, Platelet Count 275, Mean Platelet Volume 7.3, Neutrophils (%) (Auto) 55.5, Lymphocytes (%) (Auto) 33.2, Monocytes (%) (Auto) 10.6H, Eosinophils (%) (Auto) 0.2, Basophils (%) (Auto) 0.4, Sodium Level 139, Potassium Level 4.3, Chloride Level 104, Carbon Dioxide Level 28, Anion Gap 7, Blood Urea Nitrogen 26H, Creatinine 1.0, Estimat Glomerular Filtration Rate 52.2, Glucose Level 93, Calcium Level 9.2 Current Medications Medications (Trade) Dose Ordered Sig/Hetal Route PRN Reason Start Time Stop Time Status Last Admin Dose Admin Acetaminophen (Tylenol) 650 mg Q4H PRN ORAL Mild Pain (Pain Scale 1-3) 05/20/20 15:30 06/16/20 15:29 Albuterol Sulfate (Proventil MDI) 2 puff Q4H PRN INH Shortness of Breath 05/20/20 16:00 08/16/20 15:59 Dexamethasone Sodium Phosphate (Decadron 4mg/ml vial) 6 mg DAILY IVP 05/21/20 09:00 05/27/20 08:59 05/23/20 08:29 Enoxaparin Sodium (Lovenox) 40 mg DAILY SUBQ 05/21/20 09:00 08/16/20 08:59 05/23/20 08:34 Gabapentin (Neurontin) 100 mg BID ORAL 05/20/20 18:00 06/17/20 08:59 05/23/20 08:30 Loperamide HCl (Imodium) 2 mg Q6H PRN ORAL Diarrhea 05/20/20 16:00 06/16/20 15:59 Lorazepam (Ativan 2mg/ml 1ml) 0.5 mg Q8H PRN IV For Anxiety 05/20/20 16:00 05/25/20 15:59 Losartan Potassium (Cozaar) 25 mg DAILY ORAL 05/21/20 09:00 06/17/20 08:59 05/23/20 09:28 Magnesium Hydroxide (Mom) 30 ml DAILYPRN PRN ORAL Constipation 05/20/20 16:00 06/16/20 15:59 Meloxicam (Mobic) 15 mg DAILY ORAL 05/21/20 09:00 06/17/20 08:59 05/23/20 08:30 Ondansetron HCl (Zofran) 4 mg Q4H PRN IVP Nausea & Vomiting 05/20/20 16:00 06/16/20 15:59 Pantoprazole (Protonix) 40 mg DAILY IVP 05/21/20 09:00 06/17/20 10:14 05/23/20 08:30 Assessment/Plan Problems: (1) 2019 novel coronavirus disease (COVID-19) (2) Respiratory distress (3) Anemia (4) History of hypertension (5) CAD (coronary artery disease) (6) Alzheimer's dementia Assessment/Plan on Restrains, doing better cxr reviewed v/q negative Normal Echo respiratory treatment all reviewed echo reviewed, EF 60% monitor BP cardiology note appreciated symptomatic treatment. Thania Chung MD May 23, 2020 12:01
--- NOTE | 2020-05-23 12:28 | Infectious Diseases Prog Note ---
Assessment/Plan Assessment: COVID19 confirmed- ?PNA- no apparent PNA on CXR or CT chest Acute hypoxic resp failure, SP- now at , no hypoxia on ABG -dx'ed on 05/11 at [facility] 05/20 CXR: Limited exam as above. Within these limitations:Overall findings suggesting low probability for pulmonary embolism. Recommend more definitive evaluation with CT angiogram of the chest as clinically indicated. -05/19 CXR: No focal consolidation, pleural effusion, or pneumothorax. Mild chronically increased interstitial markings. -05/17 CTA chest: STUDY LIMITED DUE TO RESPIRATORY MOTION ARTIFACT.NO LARGE CENTRAL EMBOLISM. NO DEFINITE PERIPHERAL SMALL SUBSEGMENTAL PULMONARY EMBOLI TO THE EXTENT VISUALIZED. 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 GALLSTONE. -05/17 CXR: no acute disease rapid COVID PCR + inflammatory markers normal Afebrile No leukocytosis -05/17 u/a neg Bcx Neg HTN Alzheimer's Dementia recent diagnosis COVID19 (05/11) SNF resident ([facility]) Plan: -Continue to monitor off abx -Dc Decadron #7 as patient has remains on room Air -f/u cx -Monitor CBC/CMP, temperatures -COVID19 isolation -Pulm, cards f/u Thank you for this consultation. Will continue to follow along with you. Discussed with RN. Subjective Allergies: Coded Allergies: No Known Allergies (Unverified , 12/07/12) afebrile at no leukocytosis Objective Last 24 Hour Vital Signs Date Time Temp Pulse Resp B/P (MAP) Pulse Ox O2 Delivery O2 Flow Rate FiO2 05/23/20 12:00 98.8 69 20 112/56 (74) 99 05/23/20 09:28 124/45 05/23/20 09:00 Room Air 05/23/20 08:00 121 05/23/20 08:00 99.0 63 20 124/45 (71) 98 05/23/20 04:00 97.2 66 22 124/60 (81) 96 05/23/20 04:00 131 05/23/20 00:00 57 05/23/20 00:00 97.0 62 20 111/56 (74) 93 05/22/20 21:00 Room Air 05/22/20 20:34 96 Room Air 21 05/22/20 20:00 97.9 72 20 128/73 (91) 94 05/22/20 20:00 66 05/22/20 16:00 99.5 70 20 98/41 (60) 97 05/22/20 16:00 68 Height (Feet): 5 Height (Inches): 3.00 Weight (Pounds): 117 Laboratory Tests Test 05/23/20 04:15 White Blood Count 9.1 K/UL (4.8-10.8) Red Blood Count 3.80 M/UL (4.20-5.40) L Hemoglobin 11.5 G/DL (12.0-16.0) L Hematocrit 36.1 % (37.0-47.0) L Mean Corpuscular Volume 95 FL (80-99) Mean Corpuscular Hemoglobin 30.3 PG (27.0-31.0) Mean Corpuscular Hemoglobin Concent 31.9 G/DL (32.0-36.0) L Red Cell Distribution Width 12.8 % (11.6-14.8) Platelet Count 275 K/UL (150-450) Mean Platelet Volume 7.3 FL (6.5-10.1) Neutrophils (%) (Auto) 55.5 % (45.0-75.0) Lymphocytes (%) (Auto) 33.2 % (20.0-45.0) Monocytes (%) (Auto) 10.6 % (1.0-10.0) H Eosinophils (%) (Auto) 0.2 % (0.0-3.0) Basophils (%) (Auto) 0.4 % (0.0-2.0) Sodium Level 139 MMOL/L (136-145) Potassium Level 4.3 MMOL/L (3.5-5.1) Chloride Level 104 MMOL/L (98-107) Carbon Dioxide Level 28 MMOL/L (21-32) Anion Gap 7 mmol/L (5-15) Blood Urea Nitrogen 26 mg/dL (7-18) H Creatinine 1.0 MG/DL (0.55-1.30) Estimat Glomerular Filtration Rate 52.2 mL/min (>60) Glucose Level 93 MG/DL (74-106) Calcium Level 9.2 MG/DL (8.5-10.1) Current Medications Medications (Trade) Dose Ordered Sig/Hetal Route PRN Reason Start Time Stop Time Status Last Admin Dose Admin Acetaminophen (Tylenol) 650 mg Q4H PRN ORAL Mild Pain (Pain Scale 1-3) 05/20/20 15:30 06/16/20 15:29 Albuterol Sulfate (Proventil MDI) 2 puff Q4H PRN INH Shortness of Breath 05/20/20 16:00 08/16/20 15:59 Dexamethasone Sodium Phosphate (Decadron 4mg/ml vial) 6 mg DAILY IVP 05/21/20 09:00 05/27/20 08:59 05/23/20 08:29 Enoxaparin Sodium (Lovenox) 40 mg DAILY SUBQ 05/21/20 09:00 08/16/20 08:59 05/23/20 08:34 Gabapentin (Neurontin) 100 mg BID ORAL 05/20/20 18:00 06/17/20 08:59 05/23/20 08:30 Loperamide HCl (Imodium) 2 mg Q6H PRN ORAL Diarrhea 05/20/20 16:00 06/16/20 15:59 Lorazepam (Ativan 2mg/ml 1ml) 0.5 mg Q8H PRN IV For Anxiety 05/20/20 16:00 05/25/20 15:59 Losartan Potassium (Cozaar) 25 mg DAILY ORAL 05/21/20 09:00 06/17/20 08:59 05/23/20 09:28 Magnesium Hydroxide (Mom) 30 ml DAILYPRN PRN ORAL Constipation 05/20/20 16:00 06/16/20 15:59 Meloxicam (Mobic) 15 mg DAILY ORAL 05/21/20 09:00 06/17/20 08:59 05/23/20 08:30 Ondansetron HCl (Zofran) 4 mg Q4H PRN IVP Nausea & Vomiting 05/20/20 16:00 06/16/20 15:59 Pantoprazole (Protonix) 40 mg DAILY IVP 05/21/20 09:00 06/17/20 10:14 05/23/20 08:30 Xin Strickland M.D. May 23, 2020 12:28
--- NOTE | 2020-05-23 14:25 | NUR ---
CASE MANAGEMENT:REVIEW 05/23/20 SI: COVID INFECTION RESPIRATORY DISTRESS 98.8 69 106 20 112/56 99% ON RA BUN+26 IS: LOVENOX SQ QD COZAAR PO QD MOBIC PO QD IV PROTONIX QD NEURONTIN PO BID : TELEMETRY STATUS DCP: FROM [facility] PLAN: DOWNGRADE TO MED/SURG
--- NOTE | 2020-05-23 14:28 | NUR ---
DISCHARGE PLANNING PATIENT CAN RETURN TO [facility] ONCE STABLE FOR DISCHARGE NEEDS TO BE OFF RESTRAINTS X24HRS PRIOR TO DISCHARGE DOWNGRADE TO MED/SURG
[2020-05-23 16:00] VITALS: BP 109/51
--- NOTE | 2020-05-23 18:27 | Internal Med Progress Note ---
Subjective Date of Service: May 23, 2020 Physician Name Dimas Anderson Attending Physician Mannie Packer MD Current Medications Medications (Trade) Dose Ordered Sig/Hetal Route PRN Reason Start Time Stop Time Status Last Admin Dose Admin Acetaminophen (Tylenol) 650 mg Q4H PRN ORAL Mild Pain (Pain Scale 1-3) 05/20/20 15:30 06/16/20 15:29 Albuterol Sulfate (Proventil MDI) 2 puff Q4H PRN INH Shortness of Breath 05/20/20 16:00 08/16/20 15:59 Enoxaparin Sodium (Lovenox) 40 mg DAILY SUBQ 05/21/20 09:00 08/16/20 08:59 05/23/20 08:34 Gabapentin (Neurontin) 100 mg BID ORAL 05/20/20 18:00 06/17/20 08:59 05/23/20 17:42 Loperamide HCl (Imodium) 2 mg Q6H PRN ORAL Diarrhea 05/20/20 16:00 06/16/20 15:59 Lorazepam (Ativan 2mg/ml 1ml) 0.5 mg Q8H PRN IV For Anxiety 05/20/20 16:00 05/25/20 15:59 Losartan Potassium (Cozaar) 25 mg DAILY ORAL 05/21/20 09:00 06/17/20 08:59 05/23/20 09:28 Magnesium Hydroxide (Mom) 30 ml DAILYPRN PRN ORAL Constipation 05/20/20 16:00 06/16/20 15:59 Meloxicam (Mobic) 15 mg DAILY ORAL 05/21/20 09:00 06/17/20 08:59 05/23/20 08:30 Ondansetron HCl (Zofran) 4 mg Q4H PRN IVP Nausea & Vomiting 05/20/20 16:00 06/16/20 15:59 Pantoprazole (Protonix) 40 mg DAILY IVP 05/21/20 09:00 06/17/20 10:14 05/23/20 08:30 Allergies: Coded Allergies: No Known Allergies (Unverified , 12/07/12) ROS Limited/Unobtainable: Yes Subjective 89 YO F admitted with COVID 19 pneumonia. Cover for Int Med-DR Packer. Tele Objective Last Vital Signs Date Time Temp Pulse Resp B/P (MAP) Pulse Ox O2 Delivery O2 Flow Rate FiO2 05/23/20 16:00 87 05/23/20 16:00 98.1 22 109/51 (70) 99 05/23/20 09:00 Room Air 05/22/20 20:34 21 05/19/20 08:00 4.0 Laboratory Tests Test 05/23/20 04:15 White Blood Count 9.1 K/UL (4.8-10.8) Red Blood Count 3.80 M/UL (4.20-5.40) L Hemoglobin 11.5 G/DL (12.0-16.0) L Hematocrit 36.1 % (37.0-47.0) L Mean Corpuscular Volume 95 FL (80-99) Mean Corpuscular Hemoglobin 30.3 PG (27.0-31.0) Mean Corpuscular Hemoglobin Concent 31.9 G/DL (32.0-36.0) L Red Cell Distribution Width 12.8 % (11.6-14.8) Platelet Count 275 K/UL (150-450) Mean Platelet Volume 7.3 FL (6.5-10.1) Neutrophils (%) (Auto) 55.5 % (45.0-75.0) Lymphocytes (%) (Auto) 33.2 % (20.0-45.0) Monocytes (%) (Auto) 10.6 % (1.0-10.0) H Eosinophils (%) (Auto) 0.2 % (0.0-3.0) Basophils (%) (Auto) 0.4 % (0.0-2.0) Sodium Level 139 MMOL/L (136-145) Potassium Level 4.3 MMOL/L (3.5-5.1) Chloride Level 104 MMOL/L (98-107) Carbon Dioxide Level 28 MMOL/L (21-32) Anion Gap 7 mmol/L (5-15) Blood Urea Nitrogen 26 mg/dL (7-18) H Creatinine 1.0 MG/DL (0.55-1.30) Estimat Glomerular Filtration Rate 52.2 mL/min (>60) Glucose Level 93 MG/DL (74-106) Calcium Level 9.2 MG/DL (8.5-10.1) Intake and Output 05/22/20 05/23/20 19:00 07:00 Intake Total 360 ml 120 ml Balance 360 ml 120 ml Intake Oral 360 ml 120 ml # Voids 3 1 # Bowel Movements 2 Objective PHYSICAL EXAMINATION: GENERAL: The patient is a thin-appearing, female, in no apparent distress. HEENT: Eyes, pupils are equal and responsive to light and accommodation. Extraocular movements are intact. NECK: Supple without lymphadenopathy. CHEST: Decreased breath sounds to bilateral bases. Otherwise, clear to auscultation without wheezes or rales. CARDIOVASCULAR: Regular rhythm and rate. S1, S2 are normal without murmurs, rubs, or gallops. ABDOMEN: Soft, nontender, and nondistended. Positive bowel sounds. No evidence of hepatosplenomegaly. Currently, no rebound or guarding noted. EXTREMITIES: Negative for clubbing, cyanosis, or edema. RECTAL/GENITAL: Not performed. NEUROLOGIC: Cranial nerves II to XII are grossly intact without focal deficits. Motor strength is 5/5 bilaterally. Deep tendon reflexes are 2+ plantar. Assessment/Plan Assessment/Plan ASSESSMENT: This is an 89-year-old female with: 1. COVID-19 positive. 2. Probable COVID-19 pneumonia. 3. Hypertension. 4. Alzheimer's dementia. TREATMENT: 1. COVID-19 positive. An Infectious Disease consultation has been obtained with Dr. Strickland. A Pulmonary consultation has been obtained with Dr. Thania Chung. The patient has been started empirically on Decadron 6 mg IV daily. Follow recommendations of Pulmonary and Infectious Disease. 2. Hypertension. Continue losartan as above. 3. Alzheimer's dementia. 4. CODE STATUS: Full code 5. DVT prophylaxis: Lovenox injection. Dimas Anderson MD May 23, 2020 18:27
--- NOTE | 2020-05-23 18:49 | Cardiology Progress Note ---
Assessment/Plan Assessment/Plan covid 19 infection htn encephaloapthty echo pesoanlly reviewed normal wall motion on obn dvt ppx with lwmh tele sinus afebrile Subjective Subjective in covid isolation i did not see pt but revied chart and otluis m note for today in order to minimize risk of transmission NURSE NOTES: Patient AAO x1. Breathing regular and unlabored on room air. No signs of pain. Bilateral soft wrist restraints intact. Radial pulses palpable, skin color normal for ethnicity, no edema, cap refill <3 seconds. Hydration and nutrition offered. Patient continues to attempt to remove devices and get out of bed. Objective Last 24 Hour Vital Signs Date Time Temp Pulse Resp B/P (MAP) Pulse Ox O2 Delivery O2 Flow Rate FiO2 05/23/20 16:00 87 05/23/20 16:00 98.1 87 22 109/51 (70) 99 05/23/20 12:00 98.8 69 20 112/56 (74) 99 05/23/20 12:00 106 05/23/20 09:28 124/45 05/23/20 09:00 Room Air 05/23/20 08:00 121 05/23/20 08:00 99.0 63 20 124/45 (71) 98 05/23/20 04:00 97.2 66 22 124/60 (81) 96 05/23/20 04:00 131 05/23/20 00:00 57 05/23/20 00:00 97.0 62 20 111/56 (74) 93 05/22/20 21:00 Room Air 05/22/20 20:34 96 Room Air 21 05/22/20 20:00 97.9 72 20 128/73 (91) 94 05/22/20 20:00 66 Intake and Output 05/22/20 05/23/20 19:00 07:00 Intake Total 360 ml 120 ml Balance 360 ml 120 ml Intake Oral 360 ml 120 ml # Voids 3 1 # Bowel Movements 2 Laboratory Tests Test 05/23/20 04:15 White Blood Count 9.1 K/UL (4.8-10.8) Red Blood Count 3.80 M/UL (4.20-5.40) L Hemoglobin 11.5 G/DL (12.0-16.0) L Hematocrit 36.1 % (37.0-47.0) L Mean Corpuscular Volume 95 FL (80-99) Mean Corpuscular Hemoglobin 30.3 PG (27.0-31.0) Mean Corpuscular Hemoglobin Concent 31.9 G/DL (32.0-36.0) L Red Cell Distribution Width 12.8 % (11.6-14.8) Platelet Count 275 K/UL (150-450) Mean Platelet Volume 7.3 FL (6.5-10.1) Neutrophils (%) (Auto) 55.5 % (45.0-75.0) Lymphocytes (%) (Auto) 33.2 % (20.0-45.0) Monocytes (%) (Auto) 10.6 % (1.0-10.0) H Eosinophils (%) (Auto) 0.2 % (0.0-3.0) Basophils (%) (Auto) 0.4 % (0.0-2.0) Sodium Level 139 MMOL/L (136-145) Potassium Level 4.3 MMOL/L (3.5-5.1) Chloride Level 104 MMOL/L (98-107) Carbon Dioxide Level 28 MMOL/L (21-32) Anion Gap 7 mmol/L (5-15) Blood Urea Nitrogen 26 mg/dL (7-18) H Creatinine 1.0 MG/DL (0.55-1.30) Estimat Glomerular Filtration Rate 52.2 mL/min (>60) Glucose Level 93 MG/DL (74-106) Calcium Level 9.2 MG/DL (8.5-10.1) Objective per ID note Gen: Older woman, laying in bed in NAD Pulm: BL chest rise on RA Abd: Soft, NTND Ext: No c/c/e Skin: No visible skin rashes Oneal Pickens MD May 23, 2020 18:49
--- NOTE | 2020-05-23 19:18 | NUR ---
NURSE NOTES: Reported off to KRYSTIAN Gaviria. Patient stable, no distress.
--- NOTE | 2020-05-23 19:27 | NUR ---
NURSE NOTES: RECEIVED REPORT FROM KRYSTIAN JOSUE. AOX1, VERBAL ALTHOUGH INCOMPREHENSIVE. NO S/SX OF PAIN OR DISCOMFORT AT THIS TIME. BREATHING IS EVEN AND UNLABORED ON ROOM AIR, NO S/SX OF DISTRESS NOTED. IV SITE ON LAC PATENT, INTACT, ASYMPTOMATIC, AND SALINE-LOCKED. BILATERAL SOFT WRIST RESTRAINTS ON WITH NO COMPROMISE NOTED IN CIRCULATION, SENSATION, MOBILITY, OR SKIN INTEGRITY. FALL AND ASPIRATION PRECAUTIONS IN PLACE. CONTACT AND DROPLET ISOLATION IMPLEMENTED. BED LOCKED AND IN LOWEST POSITION, SIDERAILS UP X 3. CALL LIGHT WITHIN REACH. WILL CONTINUE TO MONITOR FOR ANY CHANGES.
[2020-05-23 20:00] VITALS: BP 107/50
[2020-05-24] VITALS: BP 110/55
--- NOTE | 2020-05-24 01:12 | NUR ---
INTER-FACILITY TRANSFER: PATIENT TRANSFERRED TO ROOM 419-2 FROM VIA [facility] WITH NO INCIDENT. PATIENT OFF [employer] HEL[employer] NOW. REPORT GIVEN TO KRYSTIAN ALMARAZ. NO S/SX OF PAIN OR DISCOMFORT. BREATHING EVEN AND UNLABORED ON ROOM AIR, NO S/SX OF DISTRESS. BILATERAL WRIST SOFT RESTRAINTS ON- NO COMPROMISE NOTED IN CIRCULATION, SENSATION, MOBILITY, AND SKIN INTERGRITY. WENT OVER BELONGINGS LIST WITH RECEIVING RN, PATIENT ONLY HAS A PAIR OF BLACK PANTS. PATIENT IN STABLE CONDITION. PLAN OF CARE ENDORSED.
[2020-05-24] MEDS ORDERED: Milk of Magnesia 30ml Ud ORAL PRN (02:15)
[2020-05-24] MEDS ORDERED: Albuterol 90mcg Inhaler 8gm INH PRN (02:15)
[2020-05-24] MEDS ORDERED: LORazepam Inj 2mg/ml 1ml IV PRN (02:15)
[2020-05-24 03:56] VITALS: BP 116/62
--- NOTE | 2020-05-24 06:53 | NUR ---
HAND-OFF: Report given to KRYSTIAN Oviedo.
[2020-05-24 07:02] LABS: ANION GAP 8 mmol/L (5-15); BLOOD UREA NITROGEN 21 mg/dL (7-18); CALCIUM 8.6 MG/DL (8.5-10.1); CARBON DIOXIDE 23 MMOL/L (21-32); CHLORIDE 105 MMOL/L (98-107); CREATININE 0.9 MG/DL (0.55-1.30); POTASSIUM 5.4 MMOL/L (3.5-5.1); SODIUM 136 MMOL/L (136-145)
--- NOTE | 2020-05-24 07:42 | NUR ---
NURSE NOTES: Received report from KRYSTIAN Rangel. Patient seen in bed, AAOx1, on bed rest. IV site patent and intact. Patient has bilateral soft restraint on, will check every hour. RN rounded and patient was trying to get out of restraints. No SOB or pain noted at this time. Not in any distress. Fall and aspiration precaution maintained. Bed is locked and placed in lowest position with bed alarm on. Call light within reach. Will continue to monitor
[2020-05-24 07:52] LABS: BASOPHILS % (AUTO) 0.5 % (0.0-2.0); EOSINOPHILS % (AUTO) 0.7 % (0.0-3.0); HEMATOCRIT 34.6 % (37.0-47.0); HEMOGLOBIN 11.1 G/DL (12.0-16.0); LYMPHOCYTES % (AUTO) 38.3 % (20.0-45.0); MEAN CORPUSCULAR VOLUME 95 FL (80-99); MONOCYTES % (AUTO) 10.4 % (1.0-10.0); NEUTROPHILS % (AUTO) 50.1 % (45.0-75.0); PLATELET COUNT 300 K/UL (150-450); RED BLOOD COUNT 3.65 M/UL (4.20-5.40); RED CELL DISTRIBUTION WIDTH 12.8 % (11.6-14.8)
[2020-05-24 08:00] VITALS: BP 116/62
[2020-05-24] MEDS: Meloxicam 15 MG TAB ORAL SCH (08:50)
[2020-05-24] MEDS: Losartan 25mg tab ORAL SCH (08:50)
[2020-05-24] MEDS: Pantoprazole Inj IVP SCH (08:50)
[2020-05-24] MEDS: Enoxaparin 40mg Inj SUBQ SCH (08:51)
--- NOTE | 2020-05-24 10:43 | NUR ---
RD ASSESSMENT & RECOMMENDATIONS SEE CARE ACTIVITY FOR COMPLETE ASSESSMENT DAILY ESTIMATED NEEDS: Needs based on Pulmonary 53kg 25-30 kcals/kg 1099-4809 total kcals 1-1.5 g protein/kg 53-80 g total protein 20-30ml/kcal mL/kg 6105-4422 total fluid mLs NUTRITION DIAGNOSIS: Swallowing difficulty r/t dementia, confusion as evidenced by pt on pureed moist texture diet w/ NTL per EVAPORATOR OPERATOR rec, w/ variable PO intake. CURRENT DIET:LOW NA, pureed moist w/ NTL PO DIET RECOMMENDATIONS: liberalized REGULAR/ texture per EVAPORATOR OPERATOR ADDITIONAL RECOMMENDATIONS: 1) Continue Ensure Enlive w/ meals 2) Monitor for hypoglycemia- rec D5 IVF while PO intake variable 3) Maintain calibrated bed scale wts 4) MVI x 1 as supplement 5) Rec liberalized regular diet given advancing age and to maximize PO acceptance 6) Monitor K- elev 5.4 on 05/24, no other episodes of hyperkalemia
--- NOTE | 2020-05-24 11:47 | NUR ---
NURSE NOTES: Patient continuously takes off her optifoam on her bilateral heel. Patient tries to kick RN when adjusting restraint and putting the optifoam back on
[2020-05-24 11:57] VITALS: BP 118/72
--- NOTE | 2020-05-24 13:23 | Pulmonology Progress Note ---
Subjective ROS Limited/Unobtainable: Yes Interval Events: pt still has restrains Constitutional: Reports: no symptoms HEENT: Repors: no symptoms Respiratory: Reports: no symptoms Allergies: Coded Allergies: No Known Allergies (Unverified , 12/07/12) All Systems: reviewed and negative except above Objective Last 24 Hour Vital Signs Date Time Temp Pulse Resp B/P (MAP) Pulse Ox O2 Delivery O2 Flow Rate FiO2 05/24/20 11:57 97.6 63 18 118/72 (87) 95 05/24/20 09:00 Room Air 05/24/20 08:50 116/62 05/24/20 08:00 97.9 65 18 116/62 (80) 95 05/24/20 03:56 97.8 18 116/62 (80) 96 05/24/20 00:00 123 05/24/20 00:00 98.0 111 20 110/55 (73) 98 05/23/20 21:00 Room Air 05/23/20 20:00 75 05/23/20 20:00 98.2 100 22 107/50 (69) 98 05/23/20 16:00 87 05/23/20 16:00 98.1 87 22 109/51 (70) 99 Intake and Output 05/23/20 05/24/20 19:00 07:00 Intake Total 690 ml 80 ml Balance 690 ml 80 ml Intake Oral 690 ml 80 ml # Voids 4 2 # Bowel Movements 2 General Appearance: cachetic HEENT: normocephalic, atraumatic Respiratory: chest wall non-tender, rhonchi - left, rhonchi - right Cardiovascular: normal peripheral pulses, normal rate Abdomen: normal bowel sounds, soft, non tender Genitourinary: normal external genitalia Extremities: no cyanosis Skin: no rash, no ulcers Neurologic: 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 apprentice 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 grossly normal Lymphatic: no neck adenopathy Laboratory Tests 05/24/20 05:00: Sodium Level 136, Potassium Level 5.4H, Chloride Level 105, Carbon Dioxide Level 23, Anion Gap 8, Blood Urea Nitrogen 21H, Creatinine 0.9, Estimat Glomerular Filtration Rate 59.0, Glucose Level 65L, Calcium Level 8.6 05/24/20 07:40: White Blood Count 9.0, Red Blood Count 3.65L, Hemoglobin 11.1L, Hematocrit 34.6L , Mean Corpuscular Volume 95, Mean Corpuscular Hemoglobin 30.4, Mean Corpuscular Hemoglobin Concent 32.1, Red Cell Distribution Width 12.8, Platelet Count 300, Mean Platelet Volume 7.3, Neutrophils (%) (Auto) 50.1, Lymphocytes (% ) (Auto) 38.3, Monocytes (%) (Auto) 10.4H, Eosinophils (%) (Auto) 0.7, Basophils (%) (Auto) 0.5 Current Medications Medications (Trade) Dose Ordered Sig/Hetal Route PRN Reason Start Time Stop Time Status Last Admin Dose Admin Acetaminophen (Tylenol) 650 mg Q4H PRN ORAL Mild Pain (Pain Scale 1-3) 05/24/20 03:30 06/16/20 15:29 Albuterol Sulfate (Proventil MDI) 2 puff Q4H PRN INH Shortness of Breath 05/24/20 02:15 08/16/20 02:14 Enoxaparin Sodium (Lovenox) 40 mg DAILY SUBQ 05/24/20 09:00 08/16/20 08:59 05/24/20 08:51 Gabapentin (Neurontin) 100 mg BID ORAL 05/24/20 09:00 06/17/20 08:59 05/24/20 08:51 Loperamide HCl (Imodium) 2 mg Q6H PRN ORAL Diarrhea 05/24/20 02:15 06/16/20 02:14 Lorazepam (Ativan 2mg/ml 1ml) 0.5 mg Q8H PRN IV For Anxiety 05/24/20 02:15 05/25/20 02:14 Losartan Potassium (Cozaar) 25 mg DAILY ORAL 05/24/20 09:00 06/17/20 08:59 05/24/20 08:50 Magnesium Hydroxide (Mom) 30 ml DAILYPRN PRN ORAL Constipation 05/24/20 02:15 06/16/20 02:14 Meloxicam (Mobic) 15 mg DAILY ORAL 05/24/20 09:00 06/17/20 08:59 05/24/20 08:50 Ondansetron HCl (Zofran) 4 mg Q4H PRN IVP Nausea & Vomiting 05/24/20 01:15 06/16/20 01:14 Pantoprazole (Protonix) 40 mg DAILY IVP 05/24/20 09:00 06/17/20 10:14 05/24/20 08:50 Assessment/Plan Problems: (1) 2019 novel coronavirus disease (COVID-19) (2) Respiratory distress (3) Anemia (4) History of hypertension (5) CAD (coronary artery disease) (6) Alzheimer's dementia Assessment/Plan on Restrains, doing better cxr reviewed v/q negative Normal Echo respiratory treatment all reviewed echo reviewed, EF 60% monitor BP cardiology note appreciated symptomatic treatment. Thania Chung MD May 24, 2020 13:23
--- NOTE | 2020-05-24 14:13 | Infectious Diseases Prog Note ---
Assessment/Plan Assessment: COVID19 confirmed- ?PNA- no apparent PNA on CXR or CT chest Acute hypoxic resp failure, SP- now at , no hypoxia on ABG -dx'ed on 05/11 at [facility] 05/20 CXR: Limited exam as above. Within these limitations:Overall findings suggesting low probability for pulmonary embolism. Recommend more definitive evaluation with CT angiogram of the chest as clinically indicated. -05/19 CXR: No focal consolidation, pleural effusion, or pneumothorax. Mild chronically increased interstitial markings. -05/17 CTA chest: STUDY LIMITED DUE TO RESPIRATORY MOTION ARTIFACT.NO LARGE CENTRAL EMBOLISM. NO DEFINITE PERIPHERAL SMALL SUBSEGMENTAL PULMONARY EMBOLI TO THE EXTENT VISUALIZED. 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 GALLSTONE. -05/17 CXR: no acute disease rapid COVID PCR + inflammatory markers normal Afebrile No leukocytosis -05/17 u/a neg Bcx Neg HTN Alzheimer's Dementia recent diagnosis COVID19 (05/11) SNF resident ([facility]) Plan: -Continue to monitor off abx -05/23 SP Decadron #7 -f/u cx -Monitor CBC/CMP, temperatures -COVID19 isolation -Pulm, cards f/u Thank you for this consultation. Will continue to follow along with you. Discussed with RN. Subjective Allergies: Coded Allergies: No Known Allergies (Unverified , 12/07/12) afebrile at Objective Last 24 Hour Vital Signs Date Time Temp Pulse Resp B/P (MAP) Pulse Ox O2 Delivery O2 Flow Rate FiO2 05/24/20 11:57 97.6 63 18 118/72 (87) 95 05/24/20 09:00 Room Air 05/24/20 08:50 116/62 05/24/20 08:00 97.9 65 18 116/62 (80) 95 05/24/20 03:56 97.8 18 116/62 (80) 96 05/24/20 00:00 123 05/24/20 00:00 98.0 111 20 110/55 (73) 98 05/23/20 21:00 Room Air 05/23/20 20:00 75 05/23/20 20:00 98.2 100 22 107/50 (69) 98 05/23/20 16:00 87 05/23/20 16:00 98.1 87 22 109/51 (70) 99 Height (Feet): 5 Height (Inches): 3.00 Weight (Pounds): 117 General Appearance: cachetic HEENT: normocephalic, atraumatic Respiratory: chest wall non-tender, rhonchi - left, rhonchi - right Cardiovascular: normal peripheral pulses, normal rate Abdomen: normal bowel sounds, soft, non tender Genitourinary: normal external genitalia Extremities: no cyanosis Skin: no rash, no ulcers Laboratory Tests Test 05/24/20 05:00 05/24/20 07:40 Sodium Level 136 MMOL/L (136-145) Potassium Level 5.4 MMOL/L (3.5-5.1) H Chloride Level 105 MMOL/L (98-107) Carbon Dioxide Level 23 MMOL/L (21-32) Anion Gap 8 mmol/L (5-15) Blood Urea Nitrogen 21 mg/dL (7-18) H Creatinine 0.9 MG/DL (0.55-1.30) Estimat Glomerular Filtration Rate 59.0 mL/min (>60) Glucose Level 65 MG/DL (74-106) L Calcium Level 8.6 MG/DL (8.5-10.1) White Blood Count 9.0 K/UL (4.8-10.8) Red Blood Count 3.65 M/UL (4.20-5.40) L Hemoglobin 11.1 G/DL (12.0-16.0) L Hematocrit 34.6 % (37.0-47.0) L Mean Corpuscular Volume 95 FL (80-99) Mean Corpuscular Hemoglobin 30.4 PG (27.0-31.0) Mean Corpuscular Hemoglobin Concent 32.1 G/DL (32.0-36.0) Red Cell Distribution Width 12.8 % (11.6-14.8) Platelet Count 300 K/UL (150-450) Mean Platelet Volume 7.3 FL (6.5-10.1) Neutrophils (%) (Auto) 50.1 % (45.0-75.0) Lymphocytes (%) (Auto) 38.3 % (20.0-45.0) Monocytes (%) (Auto) 10.4 % (1.0-10.0) H Eosinophils (%) (Auto) 0.7 % (0.0-3.0) Basophils (%) (Auto) 0.5 % (0.0-2.0) Current Medications Medications (Trade) Dose Ordered Sig/Hetal Route PRN Reason Start Time Stop Time Status Last Admin Dose Admin Acetaminophen (Tylenol) 650 mg Q4H PRN ORAL Mild Pain (Pain Scale 1-3) 05/24/20 03:30 06/16/20 15:29 Albuterol Sulfate (Proventil MDI) 2 puff Q4H PRN INH Shortness of Breath 05/24/20 02:15 08/16/20 02:14 Enoxaparin Sodium (Lovenox) 40 mg DAILY SUBQ 05/24/20 09:00 08/16/20 08:59 05/24/20 08:51 Gabapentin (Neurontin) 100 mg BID ORAL 05/24/20 09:00 06/17/20 08:59 05/24/20 08:51 Loperamide HCl (Imodium) 2 mg Q6H PRN ORAL Diarrhea 05/24/20 02:15 06/16/20 02:14 Lorazepam (Ativan 2mg/ml 1ml) 0.5 mg Q8H PRN IV For Anxiety 05/24/20 02:15 05/25/20 02:14 Losartan Potassium (Cozaar) 25 mg DAILY ORAL 05/24/20 09:00 06/17/20 08:59 05/24/20 08:50 Magnesium Hydroxide (Mom) 30 ml DAILYPRN PRN ORAL Constipation 05/24/20 02:15 06/16/20 02:14 Meloxicam (Mobic) 15 mg DAILY ORAL 05/24/20 09:00 06/17/20 08:59 05/24/20 08:50 Ondansetron HCl (Zofran) 4 mg Q4H PRN IVP Nausea & Vomiting 05/24/20 01:15 06/16/20 01:14 Pantoprazole (Protonix) 40 mg DAILY IVP 05/24/20 09:00 06/17/20 10:14 05/24/20 08:50 Xin Strickland M.D. May 24, 2020 14:13
--- NOTE | 2020-05-24 15:07 | NUR ---
NURSE NOTES: RN tried to change patients linen and re-apply optifoam, but patient continuously kicks and grabs. RN trying to off set heel and to keep them floated, but patient continuously refuses
[2020-05-24 16:00] VITALS: BP 121/68
--- NOTE | 2020-05-24 16:50 | Cardiology Progress Note ---
Assessment/Plan Assessment/Plan covid 19 infection htn encephaloapthty echo pesoanlly reviewed normal wall motion on obn dvt ppx with [facility] now off tele afebrile bp looks good remains in isolation for covid id follwoing Subjective Subjective in covid isolation i did not see pt but revied chart and oter note for today in order to minimize risk of transmission NURSE NOTES: patient has bilateral soft restraint on, will check every hour. RN rounded and patient was trying to get out of restraints. No SOB or pain noted at this time. Not in any distress. Objective Last 24 Hour Vital Signs Date Time Temp Pulse Resp B/P (MAP) Pulse Ox O2 Delivery O2 Flow Rate FiO2 05/24/20 16:00 98.2 69 18 121/68 (85) 95 05/24/20 11:57 97.6 63 18 118/72 (87) 95 05/24/20 09:00 Room Air 05/24/20 08:50 116/62 05/24/20 08:00 97.9 65 18 116/62 (80) 95 05/24/20 03:56 97.8 18 116/62 (80) 96 05/24/20 00:00 123 05/24/20 00:00 98.0 111 20 110/55 (73) 98 05/23/20 21:00 Room Air 05/23/20 20:00 75 05/23/20 20:00 98.2 100 22 107/50 (69) 98 Intake and Output 05/23/20 05/24/20 19:00 07:00 Intake Total 690 ml 80 ml Balance 690 ml 80 ml Intake Oral 690 ml 80 ml # Voids 4 2 # Bowel Movements 2 Laboratory Tests Test 05/24/20 05:00 05/24/20 07:40 Sodium Level 136 MMOL/L (136-145) Potassium Level 5.4 MMOL/L (3.5-5.1) H Chloride Level 105 MMOL/L (98-107) Carbon Dioxide Level 23 MMOL/L (21-32) Anion Gap 8 mmol/L (5-15) Blood Urea Nitrogen 21 mg/dL (7-18) H Creatinine 0.9 MG/DL (0.55-1.30) Estimat Glomerular Filtration Rate 59.0 mL/min (>60) Glucose Level 65 MG/DL (74-106) L Calcium Level 8.6 MG/DL (8.5-10.1) White Blood Count 9.0 K/UL (4.8-10.8) Red Blood Count 3.65 M/UL (4.20-5.40) L Hemoglobin 11.1 G/DL (12.0-16.0) L Hematocrit 34.6 % (37.0-47.0) L Mean Corpuscular Volume 95 FL (80-99) Mean Corpuscular Hemoglobin 30.4 PG (27.0-31.0) Mean Corpuscular Hemoglobin Concent 32.1 G/DL (32.0-36.0) Red Cell Distribution Width 12.8 % (11.6-14.8) Platelet Count 300 K/UL (150-450) Mean Platelet Volume 7.3 FL (6.5-10.1) Neutrophils (%) (Auto) 50.1 % (45.0-75.0) Lymphocytes (%) (Auto) 38.3 % (20.0-45.0) Monocytes (%) (Auto) 10.4 % (1.0-10.0) H Eosinophils (%) (Auto) 0.7 % (0.0-3.0) Basophils (%) (Auto) 0.5 % (0.0-2.0) Objective per ID note Gen: Older woman, laying in bed in NAD Pulm: BL chest rise on RA Abd: Soft, NTND Ext: No c/c/e Skin: No visible skin rashes Oneal Pickens MD May 24, 2020 16:50
--- NOTE | 2020-05-24 17:24 | Internal Med Progress Note ---
Subjective Date of Service: May 24, 2020 Physician Name Dimas Anderson Attending Physician Mannie Packer MD Current Medications Medications (Trade) Dose Ordered Sig/Hetal Route PRN Reason Start Time Stop Time Status Last Admin Dose Admin Acetaminophen (Tylenol) 650 mg Q4H PRN ORAL Mild Pain (Pain Scale 1-3) 05/24/20 03:30 06/16/20 15:29 Albuterol Sulfate (Proventil MDI) 2 puff Q4H PRN INH Shortness of Breath 05/24/20 02:15 08/16/20 02:14 Enoxaparin Sodium (Lovenox) 40 mg DAILY SUBQ 05/24/20 09:00 08/16/20 08:59 05/24/20 08:51 Gabapentin (Neurontin) 100 mg BID ORAL 05/24/20 09:00 06/17/20 08:59 05/24/20 17:10 Loperamide HCl (Imodium) 2 mg Q6H PRN ORAL Diarrhea 05/24/20 02:15 06/16/20 02:14 Lorazepam (Ativan 2mg/ml 1ml) 0.5 mg Q8H PRN IV For Anxiety 05/24/20 02:15 05/25/20 02:14 Losartan Potassium (Cozaar) 25 mg DAILY ORAL 05/24/20 09:00 06/17/20 08:59 05/24/20 08:50 Magnesium Hydroxide (Mom) 30 ml DAILYPRN PRN ORAL Constipation 05/24/20 02:15 06/16/20 02:14 Meloxicam (Mobic) 15 mg DAILY ORAL 05/24/20 09:00 06/17/20 08:59 05/24/20 08:50 Ondansetron HCl (Zofran) 4 mg Q4H PRN IVP Nausea & Vomiting 05/24/20 01:15 06/16/20 01:14 Pantoprazole (Protonix) 40 mg DAILY IVP 05/24/20 09:00 06/17/20 10:14 05/24/20 08:50 Allergies: Coded Allergies: No Known Allergies (Unverified , 12/07/12) ROS Limited/Unobtainable: Yes Subjective 89 YO F admitted with COVID 19 pneumonia. Cover for Int Med-DR Packer. Objective Last Vital Signs Date Time Temp Pulse Resp B/P (MAP) Pulse Ox O2 Delivery O2 Flow Rate FiO2 05/24/20 16:00 98.2 69 18 121/68 (85) 95 05/24/20 09:00 Room Air 05/22/20 20:34 21 05/19/20 08:00 4.0 Laboratory Tests Test 05/24/20 05:00 05/24/20 07:40 Sodium Level 136 MMOL/L (136-145) Potassium Level 5.4 MMOL/L (3.5-5.1) H Chloride Level 105 MMOL/L (98-107) Carbon Dioxide Level 23 MMOL/L (21-32) Anion Gap 8 mmol/L (5-15) Blood Urea Nitrogen 21 mg/dL (7-18) H Creatinine 0.9 MG/DL (0.55-1.30) Estimat Glomerular Filtration Rate 59.0 mL/min (>60) Glucose Level 65 MG/DL (74-106) L Calcium Level 8.6 MG/DL (8.5-10.1) White Blood Count 9.0 K/UL (4.8-10.8) Red Blood Count 3.65 M/UL (4.20-5.40) L Hemoglobin 11.1 G/DL (12.0-16.0) L Hematocrit 34.6 % (37.0-47.0) L Mean Corpuscular Volume 95 FL (80-99) Mean Corpuscular Hemoglobin 30.4 PG (27.0-31.0) Mean Corpuscular Hemoglobin Concent 32.1 G/DL (32.0-36.0) Red Cell Distribution Width 12.8 % (11.6-14.8) Platelet Count 300 K/UL (150-450) Mean Platelet Volume 7.3 FL (6.5-10.1) Neutrophils (%) (Auto) 50.1 % (45.0-75.0) Lymphocytes (%) (Auto) 38.3 % (20.0-45.0) Monocytes (%) (Auto) 10.4 % (1.0-10.0) H Eosinophils (%) (Auto) 0.7 % (0.0-3.0) Basophils (%) (Auto) 0.5 % (0.0-2.0) Intake and Output 05/23/20 05/24/20 19:00 07:00 Intake Total 690 ml 80 ml Balance 690 ml 80 ml Intake Oral 690 ml 80 ml # Voids 4 2 # Bowel Movements 2 Objective PHYSICAL EXAMINATION: GENERAL: The patient is a thin-appearing, female, in no apparent distress. HEENT: Eyes, pupils are equal and responsive to light and accommodation. Extraocular movements are intact. NECK: Supple without lymphadenopathy. CHEST: Decreased breath sounds to bilateral bases. Otherwise, clear to auscultation without wheezes or rales. CARDIOVASCULAR: Regular rhythm and rate. S1, S2 are normal without murmurs, rubs, or gallops. ABDOMEN: Soft, nontender, and nondistended. Positive bowel sounds. No evidence of hepatosplenomegaly. Currently, no rebound or guarding noted. EXTREMITIES: Negative for clubbing, cyanosis, or edema. RECTAL/GENITAL: Not performed. NEUROLOGIC: Cranial nerves II to XII are grossly intact without focal deficits. Motor strength is 5/5 bilaterally. Deep tendon reflexes are 2+ plantar. Assessment/Plan Assessment/Plan ASSESSMENT: This is an 89-year-old female with: 1. COVID-19 positive. 2. Probable COVID-19 pneumonia. 3. Hypertension. 4. Alzheimer's dementia. TREATMENT: 1. COVID-19 positive. An Infectious Disease consultation has been obtained with Dr. Strickland. A Pulmonary consultation has been obtained with Dr. Thania Chung. The patient has been started empirically on Decadron 6 mg IV daily. Follow recommendations of Pulmonary and Infectious Disease. 2. Hypertension. Continue losartan as above. 3. Alzheimer's dementia. 4. CODE STATUS: Full code 5. DVT prophylaxis: Lovenox injection. Dimas Anderson MD May 24, 2020 17:24
--- NOTE | 2020-05-24 19:05 | NUR ---
HAND-OFF: Report given to KRYSTIAN Rangel.
[2020-05-24 20:08] VITALS: BP 125/68
[2020-05-25 00:04] VITALS: BP 143/95
[2020-05-25 04:00] VITALS: BP 135/76
[2020-05-25 06:37] LABS: BASOPHILS % (AUTO) 0.6 % (0.0-2.0); EOSINOPHILS % (AUTO) 1.5 % (0.0-3.0); HEMATOCRIT 39.5 % (37.0-47.0); HEMOGLOBIN 12.7 G/DL (12.0-16.0); LYMPHOCYTES % (AUTO) 42.8 % (20.0-45.0); MEAN CORPUSCULAR VOLUME 96 FL (80-99); MONOCYTES % (AUTO) 8.6 % (1.0-10.0); NEUTROPHILS % (AUTO) 46.6 % (45.0-75.0); PLATELET COUNT 335 K/UL (150-450); RED BLOOD COUNT 4.14 M/UL (4.20-5.40); RED CELL DISTRIBUTION WIDTH 12.8 % (11.6-14.8); WHITE BLOOD COUNT 9.1 K/UL (4.8-10.8)
[2020-05-25 06:42] LABS: ANION GAP 7 mmol/L (5-15); BLOOD UREA NITROGEN 22 mg/dL (7-18); CALCIUM 8.7 MG/DL (8.5-10.1); CARBON DIOXIDE 27 MMOL/L (21-32); CHLORIDE 105 MMOL/L (98-107); POTASSIUM 4.5 MMOL/L (3.5-5.1); SODIUM 139 MMOL/L (136-145)
--- NOTE | 2020-05-25 07:22 | NUR ---
HAND-OFF: Report given to KRYSTIAN Larson/ Toya Stahl RN.
[2020-05-25 08:00] VITALS: BP 147/67
[2020-05-25] MEDS: Losartan 25mg tab ORAL SCH (09:11)
[2020-05-25] MEDS: Pantoprazole Inj IVP SCH (09:11)
[2020-05-25] MEDS: Meloxicam 15 MG TAB ORAL SCH (09:11)
[2020-05-25] MEDS: Enoxaparin 40mg Inj SUBQ SCH (09:20)
--- NOTE | 2020-05-25 10:06 | NUR ---
NURSE NOTES: Patient received from KRYSTIAN Landis. Patient seen asleep. No s/sx of SOB/Distress, no s/sx of any pain or discomfort. On droplet and contact isolation. IV site located on LAC gauge 20, inplace, intact and patent. No s.sx of warmth, redness, or swelling. Patient on bilateral soft wrist restraints, pulses palpable, skin intact, no swelling. Bed placed on lowest and locked position. Call light placed within reach and will continue to monitor.
[2020-05-25 12:00] VITALS: BP 132/58
--- NOTE | 2020-05-25 12:00 | NUR ---
ST NOTE SWALLOW STATUS Pt being seen for dysphagia tx and management. Chart reviewed of recent events, proper PEE donned. Pt's current diet texture is Moist Puree with [place] Thick Liquids. Per RN, no overt s/s of aspiration with current diet, however, per NA, Pt does not like nectar thick liquids. VITALS on room air: HR: 61; RR: 20; SP02 98% ORDER DETAILER attempted to use an certified court interpreter in Pt's primary language to minimize language barrier, however, upon attempt Pt refused to speak into the phone. Pt completed PO trials of nectar thick liquids and thin liquids, no overt s/s of aspiration noted with any trials, Pt was noted to wince with ice water versus room temperature thin liquids. Plan to trial a thin liquids with moist Puree lunchtime meal tray, RN made aware of results, recommendations, and plan. Will touch base with RN s/p lunch meal to determine if Pt is able to tolerate an entire meal with thin liquids due to Pt's reduced overall endurance at this time resulting in reduced swallow efficiency. Will continue to follow ORDER DETAILER [phone]
--- NOTE | 2020-05-25 12:18 | Internal Med Progress Note ---
Subjective Date of Service: May 25, 2020 Physician Name Dimas Anderson Attending Physician Mannie Packer MD Current Medications Medications (Trade) Dose Ordered Sig/Hetal Route PRN Reason Start Time Stop Time Status Last Admin Dose Admin Acetaminophen (Tylenol) 650 mg Q4H PRN ORAL Mild Pain (Pain Scale 1-3) 05/24/20 03:30 06/16/20 15:29 Albuterol Sulfate (Proventil MDI) 2 puff Q4H PRN INH Shortness of Breath 05/24/20 02:15 08/16/20 02:14 Enoxaparin Sodium (Lovenox) 40 mg DAILY SUBQ 05/24/20 09:00 08/16/20 08:59 05/25/20 09:20 Gabapentin (Neurontin) 100 mg BID ORAL 05/24/20 09:00 06/17/20 08:59 05/25/20 09:11 Loperamide HCl (Imodium) 2 mg Q6H PRN ORAL Diarrhea 05/24/20 02:15 06/16/20 02:14 Losartan Potassium (Cozaar) 25 mg DAILY ORAL 05/24/20 09:00 06/17/20 08:59 05/25/20 09:11 Magnesium Hydroxide (Mom) 30 ml DAILYPRN PRN ORAL Constipation 05/24/20 02:15 06/16/20 02:14 Meloxicam (Mobic) 15 mg DAILY ORAL 05/24/20 09:00 06/17/20 08:59 05/25/20 09:11 Ondansetron HCl (Zofran) 4 mg Q4H PRN IVP Nausea & Vomiting 05/24/20 01:15 06/16/20 01:14 Pantoprazole (Protonix) 40 mg DAILY IVP 05/24/20 09:00 06/17/20 10:14 05/25/20 09:11 Allergies: Coded Allergies: No Known Allergies (Unverified , 12/07/12) ROS Limited/Unobtainable: Yes Subjective 89 YO F admitted with COVID 19 pneumonia. Cover for Int Med-DR Packer. Objective Last Vital Signs Date Time Temp Pulse Resp B/P (MAP) Pulse Ox O2 Delivery O2 Flow Rate FiO2 05/25/20 09:11 147/67 05/25/20 09:00 Room Air 8/5/20 08:00 97.2 61 20 98 05/22/20 20:34 21 05/19/20 08:00 4.0 Laboratory Tests Test 05/25/20 06:00 White Blood Count 9.1 K/UL (4.8-10.8) Red Blood Count 4.14 M/UL (4.20-5.40) L Hemoglobin 12.7 G/DL (12.0-16.0) Hematocrit 39.5 % (37.0-47.0) Mean Corpuscular Volume 96 FL (80-99) Mean Corpuscular Hemoglobin 30.7 PG (27.0-31.0) Mean Corpuscular Hemoglobin Concent 32.1 G/DL (32.0-36.0) Red Cell Distribution Width 12.8 % (11.6-14.8) Platelet Count 335 K/UL (150-450) Mean Platelet Volume 7.3 FL (6.5-10.1) Neutrophils (%) (Auto) 46.6 % (45.0-75.0) Lymphocytes (%) (Auto) 42.8 % (20.0-45.0) Monocytes (%) (Auto) 8.6 % (1.0-10.0) Eosinophils (%) (Auto) 1.5 % (0.0-3.0) Basophils (%) (Auto) 0.6 % (0.0-2.0) Sodium Level 139 MMOL/L (136-145) Potassium Level 4.5 MMOL/L (3.5-5.1) Chloride Level 105 MMOL/L (98-107) Carbon Dioxide Level 27 MMOL/L (21-32) Anion Gap 7 mmol/L (5-15) Blood Urea Nitrogen 22 mg/dL (7-18) H Creatinine 1.0 MG/DL (0.55-1.30) Estimat Glomerular Filtration Rate 52.2 mL/min (>60) Glucose Level 92 MG/DL (74-106) Calcium Level 8.7 MG/DL (8.5-10.1) Intake and Output 05/24/20 05/25/20 19:00 07:00 Intake Total 360 ml Balance 360 ml Intake Oral 360 ml # Voids 3 2 # Bowel Movements 1 Objective PHYSICAL EXAMINATION: GENERAL: The patient is a thin-appearing, female, in no apparent distress. HEENT: Eyes, pupils are equal and responsive to light and accommodation. Extraocular movements are intact. NECK: Supple without lymphadenopathy. CHEST: Decreased breath sounds to bilateral bases. Otherwise, clear to auscultation without wheezes or rales. CARDIOVASCULAR: Regular rhythm and rate. S1, S2 are normal without murmurs, rubs, or gallops. ABDOMEN: Soft, nontender, and nondistended. Positive bowel sounds. No evidence of hepatosplenomegaly. Currently, no rebound or guarding noted. EXTREMITIES: Negative for clubbing, cyanosis, or edema. RECTAL/GENITAL: Not performed. NEUROLOGIC: Cranial nerves II to XII are grossly intact without focal deficits. Motor strength is 5/5 bilaterally. Deep tendon reflexes are 2+ plantar. Assessment/Plan Assessment/Plan ASSESSMENT: This is an 89-year-old female with: 1. COVID-19 positive. 2. Probable COVID-19 pneumonia. 3. Hypertension. 4. Alzheimer's dementia. TREATMENT: 1. COVID-19 positive. An Infectious Disease consultation has been obtained with Dr. Strickland. A Pulmonary consultation has been obtained with Dr. Thania Chung. The patient has been started empirically on Decadron 6 mg IV daily. Follow recommendations of Pulmonary and Infectious Disease. 2. Hypertension. Continue losartan as above. 3. Alzheimer's dementia. 4. CODE STATUS: Full code 5. DVT prophylaxis: Lovenox injection. Dimas Anderson MD May 25, 2020 12:18
--- NOTE | 2020-05-25 13:08 | Pulmonology Progress Note ---
Subjective ROS Limited/Unobtainable: Yes Interval Events: pt still has restrains Constitutional: Reports: no symptoms HEENT: Repors: no symptoms Respiratory: Reports: no symptoms Allergies: Coded Allergies: No Known Allergies (Unverified , 12/07/12) All Systems: reviewed and negative except above Objective Last 24 Hour Vital Signs Date Time Temp Pulse Resp B/P (MAP) Pulse Ox O2 Delivery O2 Flow Rate FiO2 05/25/20 12:00 97.2 66 19 132/58 (82) 96 05/25/20 09:11 147/67 05/25/20 09:00 Room Air 05/25/20 08:00 97.2 61 20 147/67 (93) 98 05/25/20 04:00 96.9 60 20 135/76 (95) 99 05/25/20 00:04 97.5 75 20 143/95 (111) 97 05/24/20 20:15 Room Air 05/24/20 20:08 97.2 61 18 125/68 (87) 96 05/24/20 16:00 98.2 69 18 121/68 (85) 95 Intake and Output 05/24/20 05/25/20 19:01 07:01 Intake Total 360 ml Balance 360 ml Intake Oral 360 ml # Voids 3 2 # Bowel Movements 1 General Appearance: cachetic HEENT: normocephalic, atraumatic Respiratory: chest wall non-tender, rhonchi - left, rhonchi - right Cardiovascular: normal peripheral pulses, normal rate Abdomen: normal bowel sounds, soft, non tender Genitourinary: normal external genitalia Extremities: no cyanosis Skin: no rash, no ulcers Neurologic: dietary internship II-XII grossly normal Lymphatic: no neck adenopathy Laboratory Tests 05/25/20 06:00: White Blood Count 9.1, Red Blood Count 4.14L, Hemoglobin 12.7, Hematocrit 39.5, Mean Corpuscular Volume 96, Mean Corpuscular Hemoglobin 30.7, Mean Corpuscular Hemoglobin Concent 32.1, Red Cell Distribution Width 12.8, Platelet Count 335, Mean Platelet Volume 7.3, Neutrophils (%) (Auto) 46.6, Lymphocytes (%) (Auto) 42.8, Monocytes (%) (Auto) 8.6, Eosinophils (%) (Auto) 1.5, Basophils (%) (Auto ) 0.6, Sodium Level 139, Potassium Level 4.5, Chloride Level 105, Carbon Dioxide Level 27, Anion Gap 7, Blood Urea Nitrogen 22H, Creatinine 1.0, Estimat Glomerular Filtration Rate 52.2, Glucose Level 92, Calcium Level 8.7 Current Medications Medications (Trade) Dose Ordered Sig/Hetal Route PRN Reason Start Time Stop Time Status Last Admin Dose Admin Acetaminophen (Tylenol) 650 mg Q4H PRN ORAL Mild Pain (Pain Scale 1-3) 05/24/20 03:30 06/16/20 15:29 Albuterol Sulfate (Proventil MDI) 2 puff Q4H PRN INH Shortness of Breath 05/24/20 02:15 08/16/20 02:14 Enoxaparin Sodium (Lovenox) 40 mg DAILY SUBQ 05/24/20 09:00 08/16/20 08:59 05/25/20 09:20 Gabapentin (Neurontin) 100 mg BID ORAL 05/24/20 09:00 06/17/20 08:59 05/25/20 09:11 Loperamide HCl (Imodium) 2 mg Q6H PRN ORAL Diarrhea 05/24/20 02:15 06/16/20 02:14 Losartan Potassium (Cozaar) 25 mg DAILY ORAL 05/24/20 09:00 06/17/20 08:59 05/25/20 09:11 Magnesium Hydroxide (Mom) 30 ml DAILYPRN PRN ORAL Constipation 05/24/20 02:15 06/16/20 02:14 Meloxicam (Mobic) 15 mg DAILY ORAL 05/24/20 09:00 06/17/20 08:59 05/25/20 09:11 Ondansetron HCl (Zofran) 4 mg Q4H PRN IVP Nausea & Vomiting 05/24/20 01:15 06/16/20 01:14 Pantoprazole (Protonix) 40 mg DAILY IVP 05/24/20 09:00 06/17/20 10:14 05/25/20 09:11 Assessment/Plan Problems: (1) 2019 novel coronavirus disease (COVID-19) (2) Respiratory distress (3) Anemia (4) History of hypertension (5) CAD (coronary artery disease) (6) Alzheimer's dementia Assessment/Plan on Restrains, doing better cxr reviewed v/q negative Normal Echo respiratory treatment all reviewed echo reviewed, EF 60% off abx monitor BP cardiology note appreciated symptomatic treatment. Thania Chung MD May 25, 2020 13:08
--- NOTE | 2020-05-25 14:00 | Infectious Diseases Prog Note ---
Assessment/Plan Assessment: COVID19 confirmed- ?PNA- no apparent PNA on CXR or CT chest Acute hypoxic resp failure, SP- now at , no hypoxia on ABG -dx'ed on 05/11 at [facility] 05/20 CXR: Limited exam as above. Within these limitations:Overall findings suggesting low probability for pulmonary embolism. Recommend more definitive evaluation with CT angiogram of the chest as clinically indicated. -05/19 CXR: No focal consolidation, pleural effusion, or pneumothorax. Mild chronically increased interstitial markings. -05/17 CTA chest: STUDY LIMITED DUE TO RESPIRATORY MOTION ARTIFACT.NO LARGE CENTRAL EMBOLISM. NO DEFINITE PERIPHERAL SMALL SUBSEGMENTAL PULMONARY EMBOLI TO THE EXTENT VISUALIZED. 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 GALLSTONE. -05/17 CXR: no acute disease rapid COVID PCR + inflammatory markers normal Afebrile No leukocytosis -05/17 u/a neg Bcx Neg HTN Alzheimer's Dementia recent diagnosis COVID19 (05/11) SNF resident ([facility]) Plan: -Continue to monitor off abx -05/23 SP Decadron #7 -f/u cx -Monitor CBC/CMP, temperatures -COVID19 isolation -Pulm, cards f/u Thank you for this consultation. Will continue to follow along with you. Discussed with RN. Subjective Allergies: Coded Allergies: No Known Allergies (Unverified , 12/07/12) afebrile at off abx Objective Last 24 Hour Vital Signs Date Time Temp Pulse Resp B/P (MAP) Pulse Ox O2 Delivery O2 Flow Rate FiO2 05/25/20 12:00 97.2 66 19 132/58 (82) 96 05/25/20 09:11 147/67 05/25/20 09:00 Room Air 05/25/20 08:00 97.2 61 20 147/67 (93) 98 05/25/20 04:00 96.9 60 20 135/76 (95) 99 05/25/20 00:04 97.5 75 20 143/95 (111) 97 05/24/20 20:15 Room Air 05/24/20 20:08 97.2 61 18 125/68 (87) 96 05/24/20 16:00 98.2 69 18 121/68 (85) 95 Height (Feet): 5 Height (Inches): 3.00 Weight (Pounds): 115 General Appearance: cachetic HEENT: normocephalic, atraumatic Respiratory: chest wall non-tender, rhonchi - left, rhonchi - right Cardiovascular: normal peripheral pulses, normal rate Abdomen: normal bowel sounds, soft, non tender Genitourinary: normal external genitalia Extremities: no cyanosis Skin: no rash, no ulcers Laboratory Tests Test 05/25/20 06:00 White Blood Count 9.1 K/UL (4.8-10.8) Red Blood Count 4.14 M/UL (4.20-5.40) L Hemoglobin 12.7 G/DL (12.0-16.0) Hematocrit 39.5 % (37.0-47.0) Mean Corpuscular Volume 96 FL (80-99) Mean Corpuscular Hemoglobin 30.7 PG (27.0-31.0) Mean Corpuscular Hemoglobin Concent 32.1 G/DL (32.0-36.0) Red Cell Distribution Width 12.8 % (11.6-14.8) Platelet Count 335 K/UL (150-450) Mean Platelet Volume 7.3 FL (6.5-10.1) Neutrophils (%) (Auto) 46.6 % (45.0-75.0) Lymphocytes (%) (Auto) 42.8 % (20.0-45.0) Monocytes (%) (Auto) 8.6 % (1.0-10.0) Eosinophils (%) (Auto) 1.5 % (0.0-3.0) Basophils (%) (Auto) 0.6 % (0.0-2.0) Sodium Level 139 MMOL/L (136-145) Potassium Level 4.5 MMOL/L (3.5-5.1) Chloride Level 105 MMOL/L (98-107) Carbon Dioxide Level 27 MMOL/L (21-32) Anion Gap 7 mmol/L (5-15) Blood Urea Nitrogen 22 mg/dL (7-18) H Creatinine 1.0 MG/DL (0.55-1.30) Estimat Glomerular Filtration Rate 52.2 mL/min (>60) Glucose Level 92 MG/DL (74-106) Calcium Level 8.7 MG/DL (8.5-10.1) Current Medications Medications (Trade) Dose Ordered Sig/Hetal Route PRN Reason Start Time Stop Time Status Last Admin Dose Admin Acetaminophen (Tylenol) 650 mg Q4H PRN ORAL Mild Pain (Pain Scale 1-3) 05/24/20 03:30 06/16/20 15:29 Albuterol Sulfate (Proventil MDI) 2 puff Q4H PRN INH Shortness of Breath 05/24/20 02:15 08/16/20 02:14 Enoxaparin Sodium (Lovenox) 40 mg DAILY SUBQ 05/24/20 09:00 08/16/20 08:59 05/25/20 09:20 Gabapentin (Neurontin) 100 mg BID ORAL 05/24/20 09:00 06/17/20 08:59 05/25/20 09:11 Loperamide HCl (Imodium) 2 mg Q6H PRN ORAL Diarrhea 05/24/20 02:15 06/16/20 02:14 Losartan Potassium (Cozaar) 25 mg DAILY ORAL 05/24/20 09:00 06/17/20 08:59 05/25/20 09:11 Magnesium Hydroxide (Mom) 30 ml DAILYPRN PRN ORAL Constipation 05/24/20 02:15 06/16/20 02:14 Meloxicam (Mobic) 15 mg DAILY ORAL 05/24/20 09:00 06/17/20 08:59 05/25/20 09:11 Ondansetron HCl (Zofran) 4 mg Q4H PRN IVP Nausea & Vomiting 05/24/20 01:15 06/16/20 01:14 Pantoprazole (Protonix) 40 mg DAILY IVP 05/24/20 09:00 06/17/20 10:14 05/25/20 09:11 Xin Strickland M.D. May 25, 2020 13:59
--- NOTE | 2020-05-25 15:34 | NUR ---
CASE MANAGEMENT:REVIEW SI;COVID-19 PNEUMONIA. 97.5 75 20 147/67 96% ON RA BUN 22 IS;PROTONIX IV QD COZAAR PO QD LOVENOX SUBQ QD MOBIC PO QD NEURONTIN PO BID MED SURG STATUS DCP;FROM [facility]
--- NOTE | 2020-05-25 15:38 | NUR ---
HOG SCRAPER NOTE SW received a consult for end of life discussion. SW spoke w/ pt's son/decision maker, Jose G Mckeon [phone]. This SW explained briefly about palliative care/hospice care. Jose G Mckeon is willing to discuss prognosis w/ MD and make the decision. Pt is from [facility]. Pt's son is requesting [facility] upon DC. GHAZALA provided Dr. Chung's office number to son. GHAZALA relayed information to assigned CM. GHAZALA will F/U once MD discusses the prognosis and code status w/ the son.
--- NOTE | 2020-05-25 15:56 | NUR ---
MANAGER HOSPITALITY NOTE CALL RECEIVED FROM [facility] [phone] FROM [facility]. PER [facility], PATIENTS FAMILY HAS CONTACTED [facility] IN RE TO PLACEMENT. THEY WISH FOR PATIENT TO DC TO [facility] THEY HAVE PRIMARILY DIVEHI RESIDENTS. [facility] CONFIRMED THEY ARE ABLE TO ACCEPT COVID (+) PATIENTS. CALL MADE TO MD TO INFORM OF ABOVE. AWAITING CALL BACK.
[2020-05-25 16:00] VITALS: BP 94/45
--- NOTE | 2020-05-25 16:33 | NUR ---
*-*DISCHARGE PLANNING*-* PATIENT HAS BEEN REFERRED TO: [facility] P: [phone]
--- NOTE | 2020-05-25 16:54 | NUR ---
DISCHARGE PLANNING DR MAO GAVE TO/RB TO DC TO [facility] 05/26/20. NOTED AND CARRIED OUT. KRYSTIAN SANTANA INFORMED.
--- NOTE | 2020-05-25 17:52 | NUR ---
NURSE NOTES: Upon 4pm VS check, patient observed to have hypotensive episode, verbally responsive and complaining of dizziness. Rechecked BP 3x 104/40 HR 58, 82/33 HR 58 and 94/45. Repositioned patient to trendelenburg position. Notified Dr. Chung, received orders to discontinue Losartan 25mg and start NS 500cc bolus. Orders noted and carried out. Rechecked BP after bolus, BP currently at 104/64 and HR 65. Will continue to monitor.
--- NOTE | 2020-05-25 19:16 | NUR ---
HAND-OFF: Report given to KRYSTIAN Campos.
--- NOTE | 2020-05-25 19:25 | NUR ---
NURSE NOTES: RECEIVED PATIENT FROM KRYSTIAN SANTANA. PATIENT IS AWAKE, AAOX1, ON ROOM AIR, NO ACUTE DISTRESS NOTED. VSS. O2 95%. PIV IS INTACT, AND PATENT. PATIENT IS ON BILATERAL SOFT WRIST RESTRAINTS, PULSES PRESENT, NO REDNESS NOTED. BED IS LOCKED AND LOW, BED ALARMS NOTED, SIDE RAILS UP X3 AND CALL LIGHT IS WITHIN REACH. WILL CONTINUE TO MONITOR CLOSELY.
[2020-05-25 20:00] VITALS: BP 117/55
[2020-05-26] VITALS: BP 110/61
[2020-05-26 04:00] VITALS: BP 134/64
[2020-05-26 06:36] LABS: BASOPHILS % (AUTO) 0.6 % (0.0-2.0); EOSINOPHILS % (AUTO) 2.3 % (0.0-3.0); HEMATOCRIT 35.6 % (37.0-47.0); HEMOGLOBIN 11.4 G/DL (12.0-16.0); LYMPHOCYTES % (AUTO) 37.2 % (20.0-45.0); MEAN CORPUSCULAR VOLUME 95 FL (80-99); MONOCYTES % (AUTO) 10.6 % (1.0-10.0); NEUTROPHILS % (AUTO) 49.4 % (45.0-75.0); PLATELET COUNT 289 K/UL (150-450); RED BLOOD COUNT 3.75 M/UL (4.20-5.40); RED CELL DISTRIBUTION WIDTH 12.5 % (11.6-14.8); WHITE BLOOD COUNT 6.3 K/UL (4.8-10.8)
[2020-05-26 06:52] LABS: ANION GAP 6 mmol/L (5-15); BLOOD UREA NITROGEN 23 mg/dL (7-18); CALCIUM 8.5 MG/DL (8.5-10.1); CARBON DIOXIDE 27 MMOL/L (21-32); CHLORIDE 106 MMOL/L (98-107); CREATININE 0.9 MG/DL (0.55-1.30); SODIUM 139 MMOL/L (136-145)
--- NOTE | 2020-05-26 07:57 | NUR ---
NURSE NOTES: Patient sitting up in bed, awake and alert, eating breakfast, on room air, bilateral soft wrist restraints in place, bed in lowest position, call light within reach, no c/o pain, in no apparent distress.
[2020-05-26 08:00] VITALS: BP 105/51
[2020-05-26] MEDS: Meloxicam 15 MG TAB ORAL SCH (09:06)
[2020-05-26] MEDS: Pantoprazole Inj IVP SCH (09:06)
[2020-05-26] MEDS: Enoxaparin 40mg Inj SUBQ SCH (09:08)
--- NOTE | 2020-05-26 09:56 | NUR ---
DISCHARGE PLANNING CALL RECEIVED FROM BK AT [facility] TO INFORM THAT PATIENT IS ACCEPTED. SHE WILL CALL BACK SHORTLY TO PROVIDE BED ASSIGNMENT.
[2020-05-26 12:00] VITALS: BP 115/65
--- NOTE | 2020-05-26 12:25 | NUR ---
SWALLOW STATUS/DYSPHAGIA MANAGEMENT/D/C SUMMARY WEEKLY SUMMARY PATIENT CLEARED FOR ST INTERVENTION BY KRYSTIAN DOMINGUEZ. PATIENT RECEIVED SITTING UPRIGHT IN BED AT 90 DEGREES. SHE WAS CONFUSED BUT AMENABLE TO P.O. TRIALS WITH NECTAR THICK LIQUIDS AND THIN LIQUIDS PRESENTED IN 5ML AMOUNTS VIA CUP/SIP AND WITH SINGLE SIPS VIA STRAW. NO OVERT S/S OF ASPIRATION WITH EACH VISCOSITY WHEN PRESENTED IN SINGLE SIP FROM CUP. WITH TRIALS VIA STRAW, PATIENT IMPULSIVELY GULPS MULTIPLE SIPS IF NOT MONITORED.. DUE TO PATIENTS DECREASED MENTATION/IMPULSIVITY, SHE REQUIRES TOTAL ASSIST WITH P.O. GOALS WERE MET RELATIVE TO IDENTIFYING SAFEST MEALTIME PROTOCOL AND VISCOSITY FOR SOLIDS/LIQUIDS TO MINIMIZE RISK OF ASPIRATION. HER PRIMARY BARRIERS TO SAFE/SUFFICIENT P.O. INTAKE CONTINUE TO INCLUDE DECREASED MENTATION/IMPULSIVITY, LOSS OF APPETITE/REFUSAL TO EAT (VARIABLE P.O. INTAKE) AND INTERMITTENT SHORTNESS OF BREATH DUE TO DECREASED ACTIVITY TOLERANCE. RECOMMENDATIONS: 1. CONTINUE MODIFIED TEXTURE DIET: PUREE WITH NECTAR THICK LIQUIDS VIA CUP/SIP 2. TOTAL ASSIST WITH MEALS 3. CRUSH CRUSHABLE MEDS/PRESENT IN PUREE 4. MEALTIME PROTOCOL WHICH INCLUDES MONITORING OF PATIENTS RESPIRATION RATE TO INSURE IT STAYS BELOW 25 BREATHS PER MINUTE. IF PATIENT BECOMES SHORT OF BREATH DURING THE MEAL, STOP/RELAX, THEN RESUME THE MEAL. 5. D/C FROM [facility]. DISCUSSED FINDINGS WITH KRYSTIAN DOMINGUEZ. D/C PENDING TO SNF THIS AFTERNOON.
--- NOTE | 2020-05-26 12:27 | NUR ---
DISCHARGE PLANNING S/W BK AT [facility]. CONFIRMED PATIENT ACCEPTED AND ABLE TO ADMIT TODAY TO ROOM 1-A [facility] TRANSPORTATION SCHEDULED WITH [id number] WITH ETA @ 1400 PM PER MITZY
--- NOTE | 2020-05-26 13:18 | NUR ---
HOOKMAN NOTE SW left a vm to pt's son, Jose G Mckeon [phone] that pt will be discharged to [facility] at 2pm today and call back if he has any questions.
--- NOTE | 2020-05-26 13:40 | NUR ---
NURSE NOTES: Left message with Leslie at Dr. Dimas [facility] requesting discharge medications. I notified that patient is discharging at 1400 on 05/26/20.
--- NOTE | 2020-05-26 13:43 | NUR ---
NURSE NOTES: Gave report to KRYSTIAN Ordoñez at [facility].
--- NOTE | 2020-05-26 14:16 | Pulmonology Progress Note ---
Subjective ROS Limited/Unobtainable: Yes Interval Events: pt still has restrains Constitutional: Reports: no symptoms HEENT: Repors: no symptoms Respiratory: Reports: no symptoms Allergies: Coded Allergies: No Known Allergies (Unverified , 12/07/12) All Systems: reviewed and negative except above Objective Last 24 Hour Vital Signs Date Time Temp Pulse Resp B/P (MAP) Pulse Ox O2 Delivery O2 Flow Rate FiO2 05/26/20 12:00 96.1 72 18 115/65 (82) 96 05/26/20 09:00 Room Air 05/26/20 08:00 97.3 73 18 105/51 (69) 100 05/26/20 04:00 97.7 68 20 134/64 (87) 98 05/26/20 00:00 97.8 70 20 110/61 (77) 98 05/25/20 21:00 Room Air 05/25/20 20:00 97.5 65 21 117/55 (75) 98 05/25/20 16:00 97.7 69 19 94/45 (61) 96 Intake and Output 05/25/20 05/26/20 19:00 07:00 Intake Total 360 ml Balance 360 ml Intake Oral 360 ml # Voids 3 1 # Bowel Movements 1 General Appearance: cachetic HEENT: normocephalic, atraumatic Respiratory: chest wall non-tender, rhonchi - left, rhonchi - right Cardiovascular: normal peripheral pulses, normal rate Abdomen: normal bowel sounds, soft, non tender Genitourinary: normal external genitalia Extremities: no cyanosis Skin: no rash, no ulcers Neurologic: welfare administrator II-XII grossly normal Lymphatic: no neck adenopathy Laboratory Tests 05/26/20 05:00: White Blood Count 6.3, Red Blood Count 3.75L, Hemoglobin 11.4L, Hematocrit 35.6L , Mean Corpuscular Volume 95, Mean Corpuscular Hemoglobin 30.5, Mean Corpuscular Hemoglobin Concent 32.1, Red Cell Distribution Width 12.5, Platelet Count 289, Mean Platelet Volume 7.2, Neutrophils (%) (Auto) 49.4, Lymphocytes (% ) (Auto) 37.2, Monocytes (%) (Auto) 10.6H, Eosinophils (%) (Auto) 2.3, Basophils (%) (Auto) 0.6, Sodium Level 139, Potassium Level 4.0, Chloride Level 106, Carbon Dioxide Level 27, Anion Gap 6, Blood Urea Nitrogen 23H, Creatinine 0.9, Estimat Glomerular Filtration Rate 59.0, Glucose Level 96, Calcium Level 8.5 Current Medications Medications (Trade) Dose Ordered Sig/Hetal Route PRN Reason Start Time Stop Time Status Last Admin Dose Admin Acetaminophen (Tylenol) 650 mg Q4H PRN ORAL Mild Pain (Pain Scale 1-3) 05/24/20 03:30 06/16/20 15:29 Albuterol Sulfate (Proventil MDI) 2 puff Q4H PRN INH Shortness of Breath 05/24/20 02:15 08/16/20 02:14 Enoxaparin Sodium (Lovenox) 40 mg DAILY SUBQ 05/24/20 09:00 08/16/20 08:59 05/26/20 09:08 Gabapentin (Neurontin) 100 mg BID ORAL 05/24/20 09:00 06/17/20 08:59 05/26/20 09:06 Loperamide HCl (Imodium) 2 mg Q6H PRN ORAL Diarrhea 05/24/20 02:15 06/16/20 02:14 Magnesium Hydroxide (Mom) 30 ml DAILYPRN PRN ORAL Constipation 05/24/20 02:15 06/16/20 02:14 Meloxicam (Mobic) 15 mg DAILY ORAL 05/24/20 09:00 06/17/20 08:59 05/26/20 09:06 Ondansetron HCl (Zofran) 4 mg Q4H PRN IVP Nausea & Vomiting 05/24/20 01:15 06/16/20 01:14 Pantoprazole (Protonix) 40 mg DAILY IVP 05/24/20 09:00 06/17/20 10:14 05/26/20 09:06 Assessment/Plan Problems: (1) 2019 novel coronavirus disease (COVID-19) (2) Respiratory distress (3) Anemia (4) History of hypertension (5) CAD (coronary artery disease) (6) Alzheimer's dementia Assessment/Plan on Restrains, doing better v/q negative Normal Echo respiratory treatment all reviewed echo reviewed, EF 60% off abx monitor BP cardiology note appreciated symptomatic treatment. Thania Chung MD May 26, 2020 14:16
--- NOTE | 2020-05-26 14:17 | Infectious Diseases Prog Note ---
Assessment/Plan Assessment: COVID19 confirmed- ?PNA- no apparent PNA on CXR or CT chest Acute hypoxic resp failure, SP- now at , no hypoxia on ABG -dx'ed on 05/11 at [facility] 05/20 CXR: Limited exam as above. Within these limitations:Overall findings suggesting low probability for pulmonary embolism. Recommend more definitive evaluation with CT angiogram of the chest as clinically indicated. -05/19 CXR: No focal consolidation, pleural effusion, or pneumothorax. Mild chronically increased interstitial markings. -05/17 CTA chest: STUDY LIMITED DUE TO RESPIRATORY MOTION ARTIFACT.NO LARGE CENTRAL EMBOLISM. NO DEFINITE PERIPHERAL SMALL SUBSEGMENTAL PULMONARY EMBOLI TO THE EXTENT VISUALIZED. 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 GALLSTONE. -05/17 CXR: no acute disease rapid COVID PCR + inflammatory markers normal Afebrile No leukocytosis -05/17 u/a neg Bcx Neg HTN Alzheimer's Dementia recent diagnosis COVID19 (05/11) SNF resident ([facility]) Plan: -Continue to monitor off abx -05/23 SP Decadron #7 -f/u cx -Monitor CBC/CMP, temperatures -COVID19 isolation -Pulm, cards f/u Thank you for this consultation. Will continue to follow along with you. Discussed with RN. Subjective Allergies: Coded Allergies: No Known Allergies (Unverified , 12/07/12) afebrile at off abx no leukocytosis Objective Last 24 Hour Vital Signs Date Time Temp Pulse Resp B/P (MAP) Pulse Ox O2 Delivery O2 Flow Rate FiO2 05/26/20 12:00 96.1 72 18 115/65 (82) 96 05/26/20 09:00 Room Air 05/26/20 08:00 97.3 73 18 105/51 (69) 100 05/26/20 04:00 97.7 68 20 134/64 (87) 98 05/26/20 00:00 97.8 70 20 110/61 (77) 98 05/25/20 21:00 Room Air 05/25/20 20:00 97.5 65 21 117/55 (75) 98 05/25/20 16:00 97.7 69 19 94/45 (61) 96 Height (Feet): 5 Height (Inches): 3.00 Weight (Pounds): 115 General Appearance: cachetic HEENT: normocephalic, atraumatic Respiratory: chest wall non-tender, rhonchi - left, rhonchi - right Cardiovascular: normal peripheral pulses, normal rate Abdomen: normal bowel sounds, soft, non tender Extremities: no cyanosis Skin: no rash, no ulcers Laboratory Tests Test 05/26/20 05:00 White Blood Count 6.3 K/UL (4.8-10.8) Red Blood Count 3.75 M/UL (4.20-5.40) L Hemoglobin 11.4 G/DL (12.0-16.0) L Hematocrit 35.6 % (37.0-47.0) L Mean Corpuscular Volume 95 FL (80-99) Mean Corpuscular Hemoglobin 30.5 PG (27.0-31.0) Mean Corpuscular Hemoglobin Concent 32.1 G/DL (32.0-36.0) Red Cell Distribution Width 12.5 % (11.6-14.8) Platelet Count 289 K/UL (150-450) Mean Platelet Volume 7.2 FL (6.5-10.1) Neutrophils (%) (Auto) 49.4 % (45.0-75.0) Lymphocytes (%) (Auto) 37.2 % (20.0-45.0) Monocytes (%) (Auto) 10.6 % (1.0-10.0) H Eosinophils (%) (Auto) 2.3 % (0.0-3.0) Basophils (%) (Auto) 0.6 % (0.0-2.0) Sodium Level 139 MMOL/L (136-145) Potassium Level 4.0 MMOL/L (3.5-5.1) Chloride Level 106 MMOL/L (98-107) Carbon Dioxide Level 27 MMOL/L (21-32) Anion Gap 6 mmol/L (5-15) Blood Urea Nitrogen 23 mg/dL (7-18) H Creatinine 0.9 MG/DL (0.55-1.30) Estimat Glomerular Filtration Rate 59.0 mL/min (>60) Glucose Level 96 MG/DL (74-106) Calcium Level 8.5 MG/DL (8.5-10.1) Current Medications Medications (Trade) Dose Ordered Sig/Hetal Route PRN Reason Start Time Stop Time Status Last Admin Dose Admin Acetaminophen (Tylenol) 650 mg Q4H PRN ORAL Mild Pain (Pain Scale 1-3) 05/24/20 03:30 06/16/20 15:29 Albuterol Sulfate (Proventil MDI) 2 puff Q4H PRN INH Shortness of Breath 05/24/20 02:15 08/16/20 02:14 Enoxaparin Sodium (Lovenox) 40 mg DAILY SUBQ 05/24/20 09:00 08/16/20 08:59 05/26/20 09:08 Gabapentin (Neurontin) 100 mg BID ORAL 05/24/20 09:00 06/17/20 08:59 05/26/20 09:06 Loperamide HCl (Imodium) 2 mg Q6H PRN ORAL Diarrhea 05/24/20 02:15 06/16/20 02:14 Magnesium Hydroxide (Mom) 30 ml DAILYPRN PRN ORAL Constipation 05/24/20 02:15 06/16/20 02:14 Meloxicam (Mobic) 15 mg DAILY ORAL 05/24/20 09:00 06/17/20 08:59 05/26/20 09:06 Ondansetron HCl (Zofran) 4 mg Q4H PRN IVP Nausea & Vomiting 05/24/20 01:15 06/16/20 01:14 Pantoprazole (Protonix) 40 mg DAILY IVP 05/24/20 09:00 06/17/20 10:14 05/26/20 09:06 Xin Strickland M.D. May 26, 2020 14:16
[2020-05-26] MEDS ORDERED: LOVENOX10 M4 SUBQ (14:18)
--- NOTE | 2020-05-26 15:45 | NUR ---
NURSE NOTES: Patient discharged in stable condition with belongings accompanied by ambulance personnel. Jose G Mckeon, son, notified of discharge to [facility], room 1A.
--- NOTE | 2020-05-29 17:01 | Discharge Summary ---
Discharge Summary Discharge Summary _ DATE OF ADMISSION: 05/17/2020 DATE OF DISCHARGE: 05/26/2020 ADMITTING MD: Dr. Mannie Packer CONSULTANTS: Dr. Xin Pickens [facility] H[facility]PITAL COURSE: Patient is an 89-year-old female, who presented with chief complaint of shortness of breath. Patient was evaluated at [facility] on 2019. Patient is a [facility] [place] [facility]. She was found to be COVID-19 positive and was discharged back to [facility]. The patient began to experience shortness of breath. Patient was hypoxic at 84% room air. She was placed on nonrebreather mask. She was transferred to [facility] for further evaluation. She has medical history significant for Alzheimer's dementia and hypertension. Upon evaluation at ED, patient had low-grade fever and was hypoxic. Patient was on nonrebreather mask. Blood work did not show any leukocytosis. Hemoglobin hematocrit were stable. D-dimer was elevated to 1.26. LDH 402 CRP and ferritin normal. Chest x-ray did not show any acute cardiopulmonary disease. CTA of the chest was negative for PE. She was given IV Decadron and MDI albuterol. She was admitted for evaluation of respiratory distress and hypoxia. Patient was admitted to stepdown unit. She was placed on isolation and was given supplemental O2. She was given trial of steroids. She was continued on MDI treatment. She was observed off antibiotics given there was no evidence of pneumonia on chest x-ray. Echocardiogram showed ejection fraction of 55 to 60% . She was given Lovenox for DVT prophylaxis. Patient was noted to have high risk for aspiration on swallow evaluation. She was placed on strict aspiration precautions. She was placed on strict aspiration precaution. She was placed on bilateral soft wrist restraints. Patient heart rate went down to 50s and had 6 beats of SVT. Patient was asymptomatic. VQ scan was negative. Patient was able to be weaned off high flow oxygen and was saturating well on room air. She was continued on 6 mg of dexamethasone. patient completed course of decadron. Patient was eventually transferred to [facility]. FINAL DIAGNOSES: COVID-19 with probable COVID-19 pneumonia Acute hypoxic respiratory failure Hypertension Alzheimer's dementia Coronary artery disease Anemia Encephalopathy DISPOSITION: Patient was discharged to a SNF. DISCHARGE MEDICATIONS: Refer to Discharge Medication List. I have been assigned to complete a discharge summary on this account, I was not involved with the patient's management.--AR Fernandez Jacqueline Robles NP May 29, 2020 17:01
== END 2020-05-26 15:33 | DRG 177 ==
LOC: EDBD 11:04 → EMR 11:05 → EDBEDREQ 11:11 → 2W 12:11 → EDBEDREQ 15:13 → 2E 05-20 15:49 → 4E 05-24 00:47
DX: U07.1 COVID-19 (principal); J96.01 Acute respiratory failure with hypoxia; J12.89 Other viral pneumonia; N17.9 Acute kidney failure, unspecified; E46 Unspecified protein-calorie malnutrition; G93.40 Encephalopathy, unspecified; G30.9 Alzheimer's disease, unspecified; F02.80 Dementia in other diseases classified elsewhere, unspecified severity, without behavioral disturbance, psychotic disturbance, mood disturbance, and anxiety; I10 Essential (primary) hypertension; E86.0 Dehydration; D64.9 Anemia, unspecified; I25.10 Atherosclerotic heart disease of native coronary artery without angina pectoris
CPT/HCPCS: 36415; 36600; 71045; 71275; 78580; 80048; 80053; 81003; 82308; 82550; 82728; 82803; 82962; 83605; 83615; 83735; 83880; 84100; 84484; 85025; 85379; 85610; 85651; 85730; 86140; 87040; 87081; 92610; 93005; 93306; 96361; 96374; 97802; 99291; J7030; J7620; U0002